=== PATIENT | female | born 1965 | race Caucasian/White ===

== ENCOUNTER 2017-01-07 18:20 | Emergency (ER) | payer OTHER ==
[~2017-01-07 18:20] MED LIST: ALEN70TA4 PO; BISA10SU38 PR; BUSP-8 PO; CALC600T PO; CLR10 PO; FLNIN NAE; LSN25 PO; MELA1TAB4 PO; MTML PO; MULT-513 PO; POLY3350 PO; RSP2 PO; SENN8.6T9 PO; SIMV20TA5 PO; SYM100 PO; SYN137 PO; TRAZ100T29 PO
--- NOTE | 2017-01-07 19:24 | EMERGENCY ROOM VISIT NOTE ---
ED Visit Note First contact with patient: 18:36 This Patient was discussed with the physician Animal Park Code Enforcement Officer, Paige Deleon PA-C. The pertinent historical and physical exam findings were confirmed. I agree with the studies ordered and with the interpretations of these studies. I agree with the disposition and care plan.
[2017-01-07] MEDS ORDERED: CEFTRIAXONE SOD INJ 1 GM ADDVIAL IM STA (19:26)
[2017-01-07] MEDS ORDERED: SEPTRA DS HOME PACK 1 EA VIAL PO ONE (19:30)
[2017-01-07] MEDS ORDERED: CEPHALEXIN 500MG HOME PACK 1 EA BTL PO ONE (19:30)
[2017-01-07] MEDS ORDERED: CEFTRIAXONE SOD 350MG/ML 1 GM VIAL IM ONE (19:45)
[2017-01-07] MEDS ORDERED: CEPH500C PO (20:11)
[2017-01-07] MEDS ORDERED: SULF800T23 PO (20:11)
--- NOTE | 2017-01-07 20:12 | EMERGENCY ROOM VISIT NOTE ---
History First contact with patient: 18:36 Chief Complaint: SWELLING TO EXTREMITY Stated Complaint: CAST CUTTING INTO TOE ,LEFT History of Present Illness The patient is a 51 year old female who presents to the Emergency Room accompanied by her guardian who states that the patient has pain of the left foot. Patient has a cast on her left lower extremity due to an ankle fracture. She has been seen [facility] for this injury. Her pony worker reports that the patient walks on her toes and the cast appears to be cutting into her left fifth toe. She states the patient appears to be in pain. She denies any fevers/chills. She denies any other complaints. Review of Systems A complete 10 point review of systems was reviewed with the patient with pertinent positives and negatives as per history of present illness. All else were negative. Past Medical/Surgical History Medical Problems: (1) Diabetes insipidus (2) Hysterectomy (3) Mental retardation Family History No reported family history Social History Smoking Status: Never Smoker Alcohol Use: none Drug Use: none Marital Status: single Housing Status: assisted living Occupation Status: disabled Current/Historical Medications Scheduled Alendronate Sodium (Fosamax), 70 MG PO WK Amantadine HCl (Amantadine HCl), 100 MG PO QAM Buspirone Hcl (Buspirone Hcl), 10 MG PO TID Calcium Carbonate (Calcium 600), 1,200 MG PO QAM Cephalexin Monohydrate (Keflex), 500 MG PO QID Fluticasone Propionate (Flonase Nasal [place]), 2 SPRAYS ZOYA QAM Levothyroxine Sodium (Levothyroxine Sodium), 137 MCG PO QAM Lisinopril (Lisinopril), 2.5 MG PO QAM Loratadine (Claritin), 10 MG PO QAM Melatonin (Melatonin), 2 MG PO HS Multivitamins/Minerals (Mvi With Minerals), 1 TAB PO QAM Polyethylene Glycol 3350 (Polyethylene Glycol 3350), 1 DOSE PO BID Psyllium (Konsyl), 1 TSP PO DAILY Risperidone (Risperidone), 2 MG PO QPM Sennosides (Senexon), 8.6 MG PO BID Simvastatin (Zocor), 20 MG PO HS Sulfa/Trimethoprim (Bactrim Ds 800MG/160MG), 1 TAB PO BID Trazodone Hcl (Trazodone), 400 MG PO HS Scheduled PRN Bisacodyl (Dulcolax), 1 SUPP NH every 3 days PRN for if no med-large bm Allergies Coded Allergies: Benztropine (Verified Allergy, Mild, 07/26/16) Pseudoephedrine (Verified Allergy, Mild, 07/26/16) Physical Exam Vital Signs Date Time Temp Pulse Resp B/P Pulse Ox O2 Delivery O2 Flow Rate FiO2 01/07/17 20:23 37.1 86 18 116/66 95 01/07/17 20:21 86 18 116/66 95 Room Air 01/07/17 18:28 37.1 18 95 Room Air Physical Exam VITALS: Vitals are noted on the nurse's note and reviewed by myself. Vital signs stable. GENERAL: This is a 51-year-old female, in no acute distress, nondiaphoretic, well-developed well-nourished. HEART: Regular rate and rhythm without murmurs gallops or rubs. LUNGS: Clear to auscultation bilaterally without wheezes, rales or rhonchi. No retractions or accessory muscle use. MUSCULOSKELETAL: There is a short leg cast in place on the left lower extremity. Removal of the cast shows an ulceration of the dorsal aspect of the left fifth toe. There is erythema suggestive of cellulitis surrounding the ulceration and extending into the dorsum of the foot. There is no drainage. No lymphangitic streaking. NEURO: Patient was alert and at her baseline mental status. Medical Decision & Procedures Medications Administered Medications (Trade) Dose Ordered Sig/Radhika Route Start Time Stop Time Status Last Admin Dose Admin Cephalexin Monohydrate (Keflex 500MG Home Pack) 1 homepack NOW ONCE PO 01/07/17 19:30 01/07/17 19:31 DC 01/07/17 19:44 1 HOMEPACK Trimethoprim/ Sulfamethoxazole (Sulfameth/ Trimeth Ds 800/ 160MG Home Pack) 1 homepack UD ONCE PO 01/07/17 19:30 01/07/17 19:31 DC 01/07/17 19:44 1 HOMEPACK Ceftriaxone Sodium (Rocephin Im) 1,000 mg NOW ONCE IM 01/07/17 19:45 01/07/17 19:47 DC 01/07/17 19:48 1,000 MG Medical Decision Differential diagnosis includes compartment syndrome, cellulitis, DVT, among others. The patient was evaluated as above. Removal of the cast does show an ulceration of the left fifth toe as well as a surrounding cellulitis. The patient was given 1 g Rocephin IM and will be placed on Keflex at home. I do not feel that she should be placed back in the cast or a hard splint. Instead, she was placed in a well-padded fracture boot pending follow-up with orthopedics. I did speak with the guardian. The patient will need a recheck of her wound in 48 hours to make sure it is not worsening. The patient should follow-up with her primary care provider or orthopedics for this recheck. She should return sooner for any worsening symptoms or any new/concerning symptoms. The patient's guardian verbalized understanding of my assessment and treatment plan the patient was discharged home in good condition. Impression Primary Impression: Cellulitis of foot, left Departure Information Dispostion Home / Self-Care Condition GOOD Prescriptions Sulfa/Trimethoprim (Bactrim Ds 800MG/160MG) Tab 1 TAB PO BID for 10 Days, #20 TAB Prov: Paige Deleon PA-C 01/07/17 Cephalexin Monohydrate (Keflex) 500 Mg Cap 500 MG PO QID for 10 Days, #40 CAP Prov: Paige Deleon PA-C 01/07/17 Referrals Dmityr Romero III, M.D. (PCP) Patient Instructions My [facility] Additional Instructions You were prescribed Bactrim to be taken twice daily as prescribed. This is an antibiotic. All antibiotics have the potential to cause diarrhea. Stop this medication and contact a medical provider if you were to develop any significant adverse side effects including: wheezing, shortness of breath, passing out, vomiting, or a diffuse rash. Always take antibiotics as directed and COMPLETE the ENTIRE course regardless of the improvement of your symptoms. You were prescribed Keflex to be taken 4 times daily as prescribed. This is an antibiotic. All antibiotics have the potential to cause diarrhea. Stop this medication and contact a medical provider if you were to develop any significant adverse side effects including: wheezing, shortness of breath, passing out, vomiting, or a diffuse rash. Always take antibiotics as directed and COMPLETE the ENTIRE course regardless of the improvement of your symptoms. The left foot needs rechecked Saturday morning by either Dr. Romero or [facility]. Change the dressing daily. Return to the emergency department immediately if there is worsening redness, worsening swelling, fevers or any other new/concerning symptoms.
[2017-01-07 20:23] VITALS: BP 116/66; PULSE 86; TEMP 37.1; O2SAT 95
== END 2017-01-07 20:25 | disposition home or self-care (01) ==
LOC: C.EDB 18:21 → C.EDD 20:25
DX: L03.116 Cellulitis of left lower limb (principal); E23.2 Diabetes insipidus; F79 Unspecified intellectual disabilities; Z79.899 Other long term (current) drug therapy

== ENCOUNTER 2017-01-24 11:00 | Emergency (ER) | payer OTHER ==
[~2017-01-24] VITALS: Ht 154.9 cm; Wt 66.6 kg
[2017-01-24 11:05] VITALS: TEMP 36.4; Ht 154.9 cm; Wt 66.6 kg
[2017-01-24] MEDS ORDERED: FLUT0.15 NAE (11:36)
[2017-01-24] MEDS ORDERED: SALI0.6510 NAE (11:41)
[2017-01-24] MEDS ORDERED: XYLOCAINE 1%/SOD BICARB 20 ML VIAL INFIL ONE (11:45)
--- NOTE | 2017-01-24 11:49 | EMERGENCY ROOM VISIT NOTE ---
History First contact with patient: 11:27 Chief Complaint: LACERATION/CUT (SUT/DERMABOND) Stated Complaint: FALL/ HEAD LAC / [facility] FACILITY Nursing Triage Summary: laceration occipital. has trouble with balance on a regular basis, has cast boot on. lost balance falling backward striking head History of Present Illness The patient is a 51 year old female who presents to the Emergency Room with complaints of fall. The patient lost her balance and fell backwards, striking the back of her head just prior to arrival. The patient has a history of falling and losing her balance. She did not have any loss of consciousness, vomiting or change in mental status. Her caregivers report a laceration to the back of the head. They state that her vaccinations are up-to-date. Review of Systems A 10 system review of systems was completed with positives and pertinent negatives listed in the HPI. The review of systems and history of present illness is primarily obtained from the patient's caregivers as she is largely nonverbal. Past Medical/Surgical History Medical Problems: (1) Diabetes insipidus (2) Hysterectomy (3) Mental retardation Family History No reported family history Social History Smoking Status: Never Smoker Alcohol Use: none Drug Use: none Marital Status: single Housing Status: assisted living Occupation Status: disabled Current/Historical Medications Scheduled Alendronate Sodium (Fosamax), 70 MG PO WK Amantadine HCl (Amantadine HCl), 100 MG PO QAM Buspirone Hcl (Buspirone Hcl), 10 MG PO TID Calcium Carbonate (Calcium 600), 1,200 MG PO QAM Levothyroxine Sodium (Levothyroxine Sodium), 137 MCG PO QAM Lisinopril (Lisinopril), 2.5 MG PO QAM Loratadine (Claritin), 10 MG PO QAM Melatonin (Melatonin), 2 MG PO HS Multivitamins/Minerals (Mvi With Minerals), 1 TAB PO QAM Polyethylene Glycol 3350 (Polyethylene Glycol 3350), 1 DOSE PO BID Psyllium (Konsyl), 1 TSP PO DAILY Risperidone (Risperidone), 2 MG PO QPM Sennosides ([place]), 8.6 MG PO BID Simvastatin (Zocor), 20 MG PO HS Trazodone Hcl (Trazodone), 400 MG PO QPM Scheduled PRN Bisacodyl (Dulcolax), 1 SUPP [place] every 3 days PRN for if no med-large bm Fluticasone Propionate (Nasal) (Flonase Allergy Relief), 1 SPRAY ZOYA BID PRN for CONGSTION Miscellaneous Medications Saline ([place] Nasal [place]), 1 SPRAY ZOYA Allergies Coded Allergies: Benztropine (Verified Allergy, Mild, 01/24/17) Pseudoephedrine (Verified Allergy, Mild, 01/24/17) Physical Exam Vital Signs Date Time Temp Pulse Resp B/P (MAP) Pulse Ox O2 Delivery O2 Flow Rate FiO2 01/24/17 13:30 80 18 110/68 92 01/24/17 11:05 36.4 88 18 118/68 94 Room Air Physical Exam VITALS: Vitals are noted on the nurse's note and reviewed by myself. Vital signs stable. GENERAL: This is a 51-year-old female, in no acute distress, nondiaphoretic, well-developed well-nourished. SKIN: The skin was without rashes, erythema, edema, or bruising. There is a laceration to the posterior scalp. There is a complex, total of 6 cm laceration to the posterior scalp. There are 2 lacerations on either side of a very very thin tissue flap. The wound edges gape with traction. There is no tenting of the skin. Capillary reflex less than 2 seconds. HEAD: Normocephalic atraumatic. EARS: External auditory canals clear, tympanic membranes pearly flores without erythema or effusion bilaterally. No hemotympanums. No mckinnon sign. No mastoid tenderness. EYES: Pupils equal round and reactive to light and accommodation. Conjunctivae without injection, sclerae without icterus. Extraocular movements intact. NOSE: Patent, turbinates without inflammation or discharge. No sinus tenderness. No septal hematoma or bleeding. FACE: No facial tenderness. MOUTH: Mucous membranes moist. Pharynx without erythema or exudate. Uvula midline. Airway patent. Tongue does not deviate. NECK: Supple without nuchal rigidity. Cervical spine is nontender. Full range of motion of the neck without tenderness. No JVD. HEART: Regular rate and rhythm without murmurs gallops or rubs. LUNGS: Clear to auscultation bilaterally without wheezes, rales or rhonchi. Strength No retractions or accessory muscle use. No chest tenderness. MUSCULOSKELETAL: A walking boot is in place on the left foot. The patient moves all 4 extremities. NEURO: The patient is at her baseline mental status per caregivers. Medical Decision & Procedures ER Provider Diagnostic Interpretation: CT HEAD WITHOUT CONTRAST (CT) CLINICAL HISTORY: Head trauma. Head pain. Closed head injury. COMPARISON STUDY: 07/17/2016 TECHNIQUE: Axial CT of the brain is performed from the vertex to the skull base. IV contrast was not administered for this examination. CT DOSE: 1459.56 mGycm FINDINGS: No intra or extra-axial mass lesions are visualized. There is no CT evidence of acute cortical infarction. There is no evidence of midline shift. There is no acute hemorrhage. No calvarial fractures are visualized. The examination is mildly compromised due to motion artifact. There is no evidence of pathologic ventricular dilatation. There is no evidence of acute sinusitis IMPRESSION: Slightly compromised study due to motion artifact. No acute intracranial findings. Medications Administered Medications (Trade) Dose Ordered Sig/Radhika Route Start Time Stop Time Status Last Admin Dose Admin Lidocaine HCl (Buffered Lidocaine 1% Inj) 20 ml NOW ONCE INFIL 01/24/17 11:45 01/24/17 11:46 DC 01/24/17 11:48 20 ML Procedure A scalp laceration was repaired. Using sterile technique the wound was cleaned with Betadine. The area was sterilely draped. 6 ml of 1% buffered lidocaine was used to anesthetize the scalp. Once the patient was numb, the wound was copiously irrigated under pressure with sterile saline. The laceration was repaired using 2 running 5-0 sutures were used to approximate the side of the flap. Additionally 1 simple interrupted 5-0 nylon suture was used with the wound edges being well approximated. The patient tolerated the procedure well. The bleeding stopped. The area was cleaned with sterile saline . ED Course The patient was seen and examined. Previous visits were reviewed. Imaging was obtained as above. There is no evidence for intracranial bleeding or skull fracture. The patient is at her baseline mental status per her caregivers. The patient had a complicated laceration to the posterior scalp. There was a very thin triangular shaped tissue flap. The laceration was large enough that I did not feel removing this tissue flap would be the best option. Instead, I attempted to approximate the wound edges using running sutures. I am not certain that this wound will heal very well. It is possible that the sutures will through this very thin tissue. It would not hold diomedes. I advised the patient's caregivers are to be very careful with this laceration and she will require close monitoring and possible wound center referral if it does not heal well. They should return to the emergency Department with any worsening symptoms. The patient was also seen and examined by who agrees with the assessment and treatment plan. Medical Decision The differential diagnosis includes: head or neck trauma, cerebrovascular disorders, intracranial lesions, infection,transient ischemic attack (TIA), CVA , seizure, syncope, intracranial mass, intracranial bleeding and vestibular disorders, among others Impression Primary Impression: Laceration of scalp Additional Impression: Closed head injury Departure Information Dispostion Home / Self-Care Condition GOOD Referrals Dmitry Romero III, M.D. (PCP) Patient Instructions ED [facility] Cl[facility], [facility] Additional Instructions Keep wound clean and dry. Do not allow any crusting or dried blood to accumulate on sutures. If this occurs, use a 1:1 solution of hydrogen peroxide/ water on a Q-tip to clean the wound. Use an antibiotic ointment for 3-4 days, then let wound dry. Suture removal in 7-10 days. Return sooner for any signs of infection (increasing redness, swelling, drainage). Ice and elevate for swelling and pain. There are two running sutures on either side of the tissue flap and one simple interrupted suture on the left side. Problem Qualifiers Primary Impression: Laceration of scalp Encounter type: initial encounter Qualified Codes: S01.01XA - Laceration without foreign body of scalp, initial encounter Additional Impression: Closed head injury Encounter type: initial encounter Qualified Codes: S09.90XA - Unspecified injury of head, initial encounter
--- NOTE | 2017-01-24 11:53 | EMERGENCY ROOM VISIT NOTE ---
ED Visit Note First contact with patient: 11:27 I have seen and examined this patient with Rabia Damian and generally agree with the treatment plan as discussed. Problem List Medical Problems: (1) Diabetes insipidus Status: Chronic (2) Hysterectomy Status: Resolved (3) Mental retardation Status: Chronic Current/Historical Medications Scheduled Alendronate Sodium (Fosamax), 70 MG PO WK Amantadine HCl (Amantadine HCl), 100 MG PO QAM Buspirone Hcl (Buspirone Hcl), 10 MG PO TID Calcium Carbonate (Calcium 600), 1,200 MG PO QAM Levothyroxine Sodium (Levothyroxine Sodium), 137 MCG PO QAM Lisinopril (Lisinopril), 2.5 MG PO QAM Loratadine (Claritin), 10 MG PO QAM Melatonin (Melatonin), 2 MG PO HS Multivitamins/Minerals (Mvi With Minerals), 1 TAB PO QAM Polyethylene Glycol 3350 (Polyethylene Glycol 3350), 1 DOSE PO BID Psyllium (Konsyl), 1 TSP PO DAILY Risperidone (Risperidone), 2 MG PO QPM Sennosides ([place]), 8.6 MG PO BID Simvastatin (Zocor), 20 MG PO HS Trazodone Hcl (Trazodone), 400 MG PO QPM Scheduled PRN Bisacodyl (Dulcolax), 1 SUPP ID every 3 days PRN for if no med-large bm Fluticasone Propionate (Nasal) (Flonase Allergy Relief), 1 SPRAY ZOYA BID PRN for CONGSTION Miscellaneous Medications Saline ([place] Nasal [place]), 1 SPRAY ZOYA Allergies Coded Allergies: Benztropine (Verified Allergy, Mild, 01/24/17) Pseudoephedrine (Verified Allergy, Mild, 01/24/17) Vital Signs Date Time Temp Pulse Resp B/P (MAP) Pulse Ox O2 Delivery O2 Flow Rate FiO2 01/24/17 11:05 36.4 88 18 118/68 94 Room Air Medications Administered Medications (Trade) Dose Ordered Sig/Radhika Route Start Time Stop Time Status Last Admin Dose Admin Lidocaine HCl (Buffered Lidocaine 1% Inj) 20 ml NOW ONCE INFIL 01/24/17 11:45 01/24/17 11:46 DC 01/24/17 11:48 20 ML Departure Information Referrals Dmitry Romero III, M.D. (PCP) Patient Instructions My [facility]
--- NOTE | 2017-01-24 12:09 | DIAGNOSTIC IMAGING REPORT ---
CT HEAD WITHOUT CONTRAST (CT) CLINICAL HISTORY: Head trauma. Head pain. Closed head injury. COMPARISON STUDY: 07/17/2016 TECHNIQUE: Axial CT of the brain is performed from the vertex to the skull base. IV contrast was not administered for this examination. CT DOSE: 1459.56 mGycm FINDINGS: No intra or extra-axial mass lesions are visualized. There is no CT evidence of acute cortical infarction. There is no evidence of midline shift. There is no acute hemorrhage. No calvarial fractures are visualized. The examination is mildly compromised due to motion artifact. There is no evidence of pathologic ventricular dilatation. There is no evidence of acute sinusitis IMPRESSION: Slightly compromised study due to motion artifact. No acute intracranial findings. Electronically signed by: Javier Donaldson M.D. 01/24/2017 12:07 PM Dictated Date/Time: 01/24/2017 12:06 PM
[2017-01-24 13:30] VITALS: BP 110/68; PULSE 80; O2SAT 92
== END 2017-01-24 13:30 | disposition home or self-care (01) ==
LOC: EDBD 11:00 → C.EDC 11:02
DX: S01.01XA Laceration without foreign body of scalp, initial encounter (principal); S09.90XA Unspecified injury of head, initial encounter; W01.0XXA Fall on same level from slipping, tripping and stumbling without subsequent striking against object, initial encounter; E23.2 Diabetes insipidus; F79 Unspecified intellectual disabilities; Z90.710 Acquired absence of both cervix and uterus

== ENCOUNTER 2017-04-02 09:25 | Emergency (ER) | payer OTHER ==
[~2017-04-02 09:25] MED LIST changes: -FLNIN NAE; +FLUT0.15 NAE; +SALI0.6510 NAE
[2017-04-02 09:39] VITALS: TEMP 36.6
--- NOTE | 2017-04-02 11:16 | DIAGNOSTIC IMAGING REPORT ---
CT SCAN OF THE CERVICAL SPINE CLINICAL HISTORY: Fall with head injury. COMPARISON STUDY: CT scan of the cervical spine dated 05/15/2016 and 08/17/2014. TECHNIQUE: CT scan of the cervical spine is performed from the skull base to the upper thoracic spine. Images are reviewed in the axial, sagittal, and coronal planes. IV contrast was not administered for this examination. FINDINGS: Skeletal structures: The skeletal structures are osteopenic. There is no evidence of fracture or subluxation involving the cervical spine. Vertebral body height and alignment are maintained. There is straightening of the cervical lordosis with reversal centered at C4-C5. The odontoid process and lateral masses are intact. The atlantoaxial articulation is preserved. The spinous processes appear intact. Anterior osteophytes are seen from C3 through C7. There is discontinuity of the anterior ring of C1, as well as the right review of C1. This could be on a congenital basis or related to remote trauma, and is unchanged from 08/17/2014. Chronic posttraumatic deformity is suggested in the right clavicle. Intervertebral discs: There is mild degenerative disc space narrowing seen at most levels.. Central canal: Clear as imaged. Soft tissues: The prevertebral and paraspinous soft tissues are within normal limits. The thyroid gland is atrophic versus surgically absent. Calvarium: The visualized calvarium at the skull base appears intact. Brain parenchyma: Partially visualized brain parenchyma the skull base is within normal limits. Sinuses and mastoids: Trace mucosal thickening is seen in the sphenoid sinuses. The mastoid air cells are well pneumatized. Lung apices: There is biapical scarring. Partially imaged apical lung parenchyma is otherwise clear as visualized. IMPRESSION: 1. There is no evidence of fracture or subluxation involving the cervical spine. 2. Osteopenia and mild spondylotic change as above. 3. Additional changes as above. Electronically signed by: Fernando Howell M.D. 04/02/2017 11:15 AM Dictated Date/Time: 04/02/2017 11:12 AM
--- NOTE | 2017-04-02 11:19 | DIAGNOSTIC IMAGING REPORT ---
HEAD WITHOUT CONTRAST (CT) CLINICAL HISTORY: 52 years-old Female with fall hit head. TECHNIQUE: Multiple axial CT images of the head were obtained without contrast. A dose lowering technique was utilized adhering to the principles of ALARA. CT DOSE: 1036.85 mGy.cm COMPARISON: CT head 01/24/2017. FINDINGS: No acute intracranial hemorrhage, midline shift, mass, large territorial ischemia or abnormal extra-axial collection. There is no cranial fracture. Mastoid air cells and middle ear cavities are clear. There is mild rightward bowing of the nasal septum. Partially imaged bilateral nasal bone fractures are present with mild angulation. Additionally, there is deep tissue air and soft tissue swelling adjacent to the right nasal bone fracture. No radiopaque foreign body. There is thickening of the maxillary sinus estrada with mild mucosal disease. IMPRESSION: 1. No acute intracranial abnormality. Negative for hemorrhage or calvarial fracture. 2. Bilateral angulated nasal bone fractures with associated soft tissue swelling and adjacent subcutaneous emphysema. The above report was generated using voice recognition software. It may contain grammatical, syntax or spelling errors. Electronically signed by: Bobby Khan M.D. 04/02/2017 11:18 AM Dictated Date/Time: 04/02/2017 11:14 AM
[2017-04-02] MEDS ORDERED: AMOX875T PO (12:08)
[2017-04-02] MEDS ORDERED: AMOXICILLIN/CLAVULANATE TAB 875 MG TAB PO ONE (12:15)
[2017-04-02 12:16] VITALS: BP 130/85; PULSE 112; O2SAT 98
--- NOTE | 2017-04-02 16:41 | EMERGENCY ROOM VISIT NOTE ---
History Report prepared by Rajani: Dion Noel Under the Supervision of: Dr. Alfredo Glass D.O. First contact with patient: 10:17 Chief Complaint: FALL Stated Complaint: FELL AND HIT NOSE;SWELLING AND BLEEDING History of Present Illness The patient is a 52 year old female who presents to the Emergency Room with complaints of constant facial pain s/p fall occurring 4.5 hours ago. She has a history of MR and is non-verbal. Per caregivers, the patient is a resident at an assisted living facility. They state that the patient fell forward and hit her nose. They state that a caregiver tried to catch the patient, and may have fallen on the patient as well. The patient's caregivers note that the patient falls frequently. They state that the patient's nose was bleeding following the episode. The patient's caregivers note that the patient has broken her nose multiple times. They state that the patient has been able to walk around normally following the episode. They do not believe the patient lost consciousness. HPI limited secondary to MR. edition is at her baseline. Source of History: caregiver History Limited By: other (MR) Onset: 4.5 hours ago Position: head (face) Timing: constant Associated Symptoms: No LOC Review of Systems ROS limited secondary to MR. Past Medical & Surgical Medical Problems: (1) Diabetes insipidus (2) Hysterectomy (3) Mental retardation Family History No reported family history Social History Smoking Status: Never Smoker Alcohol Use: none Drug Use: none Marital Status: single Housing Status: assisted living Occupation Status: disabled Current/Historical Medications Scheduled Alendronate Sodium (Fosamax), 70 MG PO WK Amantadine HCl (Amantadine HCl), 100 MG PO QAM Amoxicillin & Pot Clavulanate (Augmentin 875-125 mg), 875 MG PO BID Buspirone Hcl (Buspirone Hcl), 10 MG PO TID Calcium Carbonate (Calcium 600), 1,200 MG PO QAM Levothyroxine Sodium (Levothyroxine Sodium), 137 MCG PO QAM Lisinopril (Lisinopril), 2.5 MG PO QAM Loratadine (Claritin), 10 MG PO QAM Melatonin (Melatonin), 2 MG PO HS Multivitamins/Minerals (Mvi With Minerals), 1 TAB PO QAM Polyethylene Glycol 3350 (Polyethylene Glycol 3350), 1 DOSE PO BID Psyllium (Konsyl), 1 TSP PO DAILY Risperidone (Risperidone), 2 MG PO QPM Sennosides (Senexon), 8.6 MG PO BID Simvastatin (Zocor), 20 MG PO HS Trazodone Hcl (Trazodone), 400 MG PO QPM Scheduled PRN Bisacodyl (Dulcolax), 1 SUPP LA every 3 days PRN for if no med-large bm Fluticasone Propionate (Nasal) (Flonase Allergy Relief), 1 SPRAY ZOYA BID PRN for CONGSTION Miscellaneous Medications Saline ([place] Nasal [place]), 1 SPRAY ZOYA Allergies Coded Allergies: Benztropine (Verified Allergy, Mild, 04/02/17) Pseudoephedrine (Verified Allergy, Mild, 04/02/17) Physical Exam Vital Signs Date Time Temp Pulse Resp B/P (MAP) Pulse Ox O2 Delivery O2 Flow Rate FiO2 04/02/17 12:16 112 20 130/85 98 Room Air 04/02/17 10:58 102 20 136/84 96 Room Air 04/02/17 09:39 36.6 91 20 109/68 96 Room Air Physical Exam GENERAL: Sitting up in bed, shaking bilateral upper extremities, no acute distress, intermittently moaning. HEAD: normal cephalic, atraumatic EYE EXAM: normal conjunctiva, PERRL and EOM's intact OROPHARYNX: no exudate, no erythema, lips, buccal mucosa, and tongue normal and mucous membranes are moist. NOSE: No septal hematoma. Large bruise with septum deviated to the left. Dried blood in nares on the left. NECK: supple, no nuchal rigidity, no adenopathy, non-tender CHEST: stable to compression anteriorly and posteriorly LUNGS: clear to auscultation. Normal chest wall mechanics HEART: no murmurs, S1 normal and S2 normal ABDOMEN: abdomen soft, non-tender, normo-active bowel sounds, no masses, no rebound or guarding. PELVIS: stable to compression anteriorly and posteriorly BACK: Back is symmetrical on inspection and there is no deformity, no midline tenderness, no CVA tenderness. UPPER EXTREMITIES: full active and passive range of motion of all joints without tenderness to palpation LOWER EXTREMITIES: full active and passive range of motion of all joints without tenderness to palpation NEURO EXAM: Alert, at baseline per caretakers, moving all extremities, non- focal. Not following commands Medical Decision & Procedures ER Provider Diagnostic Interpretation: CT:Per my review, radiologist interpretation. HEAD WITHOUT CONTRAST (CT) FINDINGS: No acute intracranial hemorrhage, midline shift, mass, large territorial ischemia or abnormal extra-axial collection. There is no cranial fracture. Mastoid air cells and middle ear cavities are clear. There is mild rightward bowing of the nasal septum. Partially imaged bilateral nasal bone fractures are present with mild angulation. Additionally, there is deep tissue air and soft tissue swelling adjacent to the right nasal bone fracture. No radiopaque foreign body. There is thickening of the maxillary sinus estrada with mild mucosal disease. IMPRESSION: 1. No acute intracranial abnormality. Negative for hemorrhage or calvarial fracture. 2. Bilateral angulated nasal bone fractures with associated soft tissue swelling and adjacent subcutaneous emphysema. The above report was generated using voice recognition software. It may contain grammatical, syntax or spelling errors. Electronically signed by: Bobby Khan M.D. CT SCAN OF THE CERVICAL SPINE FINDINGS: Skeletal structures: The skeletal structures are osteopenic. There is no evidence of fracture or subluxation involving the cervical spine. Vertebral body height and alignment are maintained. There is straightening of the cervical lordosis with reversal centered at C4-C5. The odontoid process and lateral masses are intact. The atlantoaxial articulation is preserved. The spinous processes appear intact. Anterior osteophytes are seen from C3 through C7. There is discontinuity of the anterior ring of C1, as well as the right review of C1. This could be on a congenital basis or related to remote trauma, and is unchanged from 08/17/2014. Chronic posttraumatic deformity is suggested in the right clavicle. Intervertebral discs: There is mild degenerative disc space narrowing seen at most levels.. Central canal: Clear as imaged. Soft tissues: The prevertebral and paraspinous soft tissues are within normal limits. The thyroid gland is atrophic versus surgically absent. Calvarium: The visualized calvarium at the skull base appears intact. Brain parenchyma: Partially visualized brain parenchyma the skull base is within normal limits. Sinuses and mastoids: Trace mucosal thickening is seen in the sphenoid sinuses. The mastoid air cells are well pneumatized. Lung apices: There is biapical scarring. Partially imaged apical lung parenchyma is otherwise clear as visualized. IMPRESSION: 1. There is no evidence of fracture or subluxation involving the cervical spine. 2. Osteopenia and mild spondylotic change as above. 3. Additional changes as above. Electronically signed by: Fernando Howell M.D. Medications Administered Medications (Trade) Dose Ordered Sig/Radhika Route Start Time Stop Time Status Last Admin Dose Admin Amoxicillin/ Clavulanate Potassium (Augmentin Tab) 875 mg ONE ONCE PO 04/02/17 12:15 04/02/17 12:16 DC 04/02/17 12:21 875 MG ED Course ED COURSE: Vital signs were reviewed and appeared normal The patients medical record was reviewed The above diagnostic studies were performed and reviewed. ED treatments and interventions as stated above. 1019: The patient was evaluated in room C10. A complete history and physical examination was performed. 1215: Ordered Augmentin Tab 875 mg PO. Upon reevaluation, the patient is resting. I discussed my findings with the patient's caregivers and they understand and agree with the treatment plan. Based on the patients age, coexisting illnesses, exam and lab findings the decision to treat as an outpatient was made. The patient remained stable while under my care. The patient appeared well at the time of discharge. Medical Decision Differential diagnoses include major intracranial, cervical, spinal, thoracic, abdominal, pelvic and neurologic injury. Fracture, contusion, sprain, strain, laceration, abrasions included as well. Patient is a 52-year-old female that presents to the ER from a alf following a fall which was witnessed at 6 AM. No loss consciousness. She is currently at base line. She is nonverbal. Obvious deformity of nose. CT of head and cervical spine was unremarkable with the exception of the nasal fracture with a mild amount of subcutaneous air. She is given a dose of Augmentin and discharged on Augmentin. She'll follow up with ENT as I discussed case with Dr. Dong within 1 week. Discussed with county director concerning signs and symptoms to watch out for. Host And Hostess was instructed to follow up with their PCP and discussed with the parent their option to return to the ED at anytime for persistent or worsening symptoms. The appropriate anticipatory guidance and out-patient management, including indications for return to the emergency department, were explained at length to the county director and understood. Medication Reconcilliation Current Medication List: was personally reviewed by me Blood Pressure Screening Patient's blood pressure: Elevated blood pressure Blood pressure disposition: Elevated BP felt to be situational Consults Time Called: 1150 Consulting Physician: Dr. Morgan -ENT Returned Call: [phone] I reviewed the patient's case with Dr. Morgan. He agrees with treatment with antibiotics and follow up. Impression Primary Impression: Nasal bone fracture Additional Impression: Fall Scribe Attestation The scribe's documentation has been prepared under my direction and personally reviewed by me in its entirety. I confirm that the note above accurately reflects all work, treatment, procedures, and medical decision making performed by me. Departure Information Dispostion Home / Self-Care Prescriptions Amoxicillin & Pot Clavulanate (Augmentin 875-125 mg) 1 Tab Tab 875 MG PO BID for 7 Days, TAB Prov: Alfredo Glass, 04/02/17 Referrals Dmitry Romero III, M.D. (PCP) Forms HOME CARE DOCUMENTATION FORM, IMPORTANT VISIT INFORMATION Patient Instructions ED Fx Nasal Conf W X Ray, My [facility] Additional Instructions Please follow up with your primary care doctor within 1 week. Please follow-up with ENT within 1 week as well. Please take antibiotics as prescribed. Please cough with your mouth open, do not blow your nose, do not increase pressure within your head by any means. Problem Qualifiers Primary Impression: Nasal bone fracture Encounter type: initial encounter Fracture type: closed Qualified Codes: S02.2XXA - Fracture of nasal bones, initial encounter for closed fracture Additional Impression: Fall Encounter type: initial encounter Qualified Codes: W19.XXXA - Unspecified fall, initial encounter
== END 2017-04-02 12:23 | disposition home or self-care (01) ==
LOC: C.EDB 09:27 → C.EDC 12:23
DX: S02.2XXA Fracture of nasal bones, initial encounter for closed fracture (principal); W18.30XA Fall on same level, unspecified, initial encounter; Y92.199 Unspecified place in other specified residential institution as the place of occurrence of the external cause; F79 Unspecified intellectual disabilities; R29.6 Repeated falls; E23.2 Diabetes insipidus; Z90.710 Acquired absence of both cervix and uterus

== ENCOUNTER → 2017-05-21 | Outpatient (CLI) | payer OTHER ==
--- NOTE | 2017-05-21 15:45 | MAMMOGRAPHY REPORT ---
BILATERAL DIGITAL SCREENING MAMMOGRAM WITH CAD: 05/21/2017 CLINICAL HISTORY: Routine screening. Patient has no complaints. TECHNIQUE: Bilateral CC and MLO views were obtained. Current study was also evaluated with a Compute r Aided Detection (CAD) system. COMPARISON: Comparison is made to exams dated: 05/16/2016 mammogram, 05/09/2015 mammogram, 05/06/2014 m ammogram, 05/04/2013 mammogram, 04/22/2012 mammogram, and 05/01/2010 mammogram - [facility] enter. BREAST COMPOSITION: The tissue of both breasts is heterogeneously dense, which may obscure small mas ses. FINDINGS: The examination is suboptimal due to patient tremors and inability to tolerate adequate pos itioning for the exam, despite assistance from a second electromechanical technologist holding the patient for the views. There are diffuse bilateral benign-appearing microcalcifications. No obvious new mas s, architectural distortion or cluster of new microcalcifications is seen. IMPRESSION: ACR BI-RADS CATEGORY 1: NEGATIVE Suboptimal examination due to patient tremors and inability to adequately position for the exam despi te assistance from a second electromechanical technologist. Within these limitations, there is no mammogra [facility] evidence of malignancy. A 1 year screening mammogram is recommended. The patient will receive w ritten notification of the results. Approximately 10% of breast cancers are not detected with mammography. A negative mammographic report should not delay biopsy if a clinically suggestive mass is present. Brandy Mendoza M.D. ay/:05/21/2017 15:11:40 Attending Technologist: Zoe Sorensen RT(R)(M), [facility] [employer] Chemist: Valerie Coker RT(R)(M), [facility] letter sent: Normal 1/2 BI-RADS Code: ACR BI-RADS Category 1: Negative
== END | disposition home or self-care (01) ==
LOC: C.MAMM 11:27
PROVIDERS: ATTEND Family Medicine
DX: Z12.31 Encounter for screening mammogram for malignant neoplasm of breast (principal)

== ENCOUNTER 2017-07-09 19:56 | Emergency (ER) | payer OTHER ==
[~2017-07-09] VITALS: Ht 170.2 cm; Wt 67.3 kg
[2017-07-09 20:05] VITALS: TEMP 36.8; Ht 170.2 cm; Wt 67.3 kg
--- NOTE | 2017-07-09 20:47 | DIAGNOSTIC IMAGING REPORT ---
L FOOT MIN 3 VIEWS ROUTINE CLINICAL HISTORY: L foot pain/swelling pain. Edema. COMPARISON: None. DISCUSSION: Slightly angled fracture distal aspect second metatarsal. Moderate degenerative change of all remaining osseous structures. No evidence of dislocation. Old healed fracture distal fibula. Considerable degenerative change proximal interphalangeal joint fifth toe. Moderate soft tissue edema IMPRESSION: 1. Transverse fracture distal shaft second metatarsal. 2. Degenerative and old posttraumatic change. 3. Mild soft tissue edema. The above report was generated using voice recognition software. It may contain grammatical, syntax or spelling errors. Electronically signed by: Som Rivera M.D. 07/09/2017 8:46 PM Dictated Date/Time: 07/09/2017 8:45 PM
--- NOTE | 2017-07-09 21:06 | EMERGENCY ROOM VISIT NOTE ---
History First contact with patient: 20:10 Chief Complaint: FOOT PAIN Stated Complaint: L FOOT PAIN PHYSICAL DISCOMFORT History of Present Illness The patient is a 52 year old female who presents to the Emergency Room with her caregiver from the [facility], for evaluation of left foot swelling and discomfort. The caregiver reports that when they were changing her clothing tonight, they noticed swelling of the left foot. When staff attempted to touch or move the foot, she retracted the foot. The patient is nonverbal and usually does not exhibit any type of pain response. Did not witness any injuries today. Review of Systems Review of systems could not be performed because the patient is nonverbal Past Medical/Surgical History Medical Problems: (1) Diabetes insipidus (2) Hysterectomy (3) Mental retardation Family History No reported family history Social History Smoking Status: Never Smoker Alcohol Use: none Drug Use: none Marital Status: single Housing Status: assisted living Occupation Status: disabled Current/Historical Medications Scheduled Alendronate Sodium (Fosamax), 70 MG PO WK Amantadine HCl (Amantadine HCl), 100 MG PO QAM Buspirone Hcl (Buspirone Hcl), 10 MG PO TID Calcium Carbonate (Calcium 600), 1,200 MG PO QAM Levothyroxine Sodium (Levothyroxine Sodium), 137 MCG PO QAM Lisinopril (Lisinopril), 2.5 MG PO QAM Loratadine (Claritin), 10 MG PO QAM Melatonin (Melatonin), 2 MG PO HS Multivitamins/Minerals (Mvi With Minerals), 1 TAB PO QAM Polyethylene Glycol 3350 (Polyethylene Glycol 3350), 1 DOSE PO BID Psyllium (Konsyl), 1 TSP PO DAILY Risperidone (Risperidone), 2 MG PO QPM Sennosides (Senexon), 8.6 MG PO BID Simvastatin (Zocor), 20 MG PO HS Trazodone Hcl (Trazodone), 400 MG PO QPM Scheduled PRN Bisacodyl (Dulcolax), 1 SUPP [place] every 3 days PRN for if no med-large bm Fluticasone Propionate (Nasal) (Flonase Allergy Relief), 1 SPRAY ZOYA BID PRN for CONGSTION Miscellaneous Medications Saline ([place] Nasal [place]), 1 SPRAY ZOYA Physical Exam Vital Signs Date Time Temp Pulse Resp B/P (MAP) Pulse Ox O2 Delivery O2 Flow Rate FiO2 07/09/17 21:30 80 18 120/68 96 07/09/17 20:05 36.8 91 20 118/84 93 Room Air Physical Exam CONSTITUTIONAL: Healthy and well nourished. HEENT: Normocephalic, atraumatic. Pupils equal, round and reactive. NECK: The patient appears to have decent active range of motion without discomfort. RESPIRATORY: Clear to auscultation bilaterally with no wheezing, crackles, rhonchi or stridor. CARDIOVASCULAR: Regular rate and rhythm with no murmurs, rubs or gallops. GASTROINTESTINAL: Bowel sounds present in all quadrants. Soft and nontender to palpation. MUSCULOSKELETAL: Examination of the left foot shows mild edema without any erythema, ecchymosis, abrasions, lacerations or increased warmth to palpation. She does not appear to have any significant discomfort to palpation about the ankle, calcaneus or Achilles tendon. Pedal pulses are intact. INTEGUMENTARY: No rash or other significant dermatologic conditions noted. NEUROLOGIC: No focal neurologic deficits noted. Medical Decision & Procedures ER Provider Diagnostic Interpretation: My interpretation of left foot x-rays shows a transverse fracture of the distal second metatarsal. No dislocation noted. Radiologist report is as follows: L FOOT MIN 3 VIEWS ROUTINE CLINICAL HISTORY: L foot pain/swelling pain. Edema. COMPARISON: None. DISCUSSION: Slightly angled fracture distal aspect second metatarsal. Moderate degenerative change of all remaining osseous structures. No evidence of dislocation. Old healed fracture distal fibula. Considerable degenerative change proximal interphalangeal joint fifth toe. Moderate soft tissue edema IMPRESSION: 1. Transverse fracture distal shaft second metatarsal. 2. Degenerative and old posttraumatic change. 3. Mild soft tissue edema. ED Course Patient history and physical exam were performed. Nurse's notes were reviewed. Vital signs were reviewed and were normal. The patient did not appear in any acute distress on my exam. X-rays of the left foot confirms a displaced fracture of the distal shaft of the second metatarsal. According to the caregiver, the patient has difficulty walking anyway, and is up and about frequently. I explained that an Ortho-Glass splint would not support her weight , and also feel that she is unable to use crutches or a walker. I also discouraged use of a fracture boot as staff reports that she usually walks with a pronated foot which we will increase her risk for tripping and falling, potentially causing other injuries. She has a history of frequent falls as well. I suggested that they use a wheelchair and limit activities until reevaluated by orthopedics. The child support case officer was able to call her supervisor drilling and shooting who reports that she has worn a fracture boot in the past without any complications. The patient was therefore dispensed a hightop fracture boot. They may intermittently apply ice and elevate the foot as needed for any obvious discomfort or pain. The caregiver voiced understanding of all discharge instructions. The patient was also evaluated by Dr. Lewis, ED attending physician, who agrees with workup and plan of care. Medical Decision Blood Pressure Screening Patient's blood pressure: Normal blood pressure Impression Primary Impression: Fracture of second metatarsal bone of left foot Departure Information Referrals Dmitry Romero III, M.D. (PCP) Patient Instructions My [facility] Problem Qualifiers Primary Impression: Fracture of second metatarsal bone of left foot Encounter type: initial encounter Fracture type: closed Fracture alignment : displaced Qualified Codes: S92.322A - Displaced fracture of second metatarsal bone, left foot, initial encounter for closed fracture
--- NOTE | 2017-07-09 21:15 | EMERGENCY ROOM VISIT NOTE ---
ED Visit Note First contact with patient: 20:10 This Patient was discussed with the physician Director Of Event Marketing, Ray Villalobos PA-C. The pertinent historical and physical exam findings were confirmed. I agree with the studies ordered and with the interpretations of these studies. I agree with the disposition and care plan.
[2017-07-09 21:30] VITALS: BP 120/68; PULSE 80; O2SAT 96
== END 2017-07-09 21:31 | disposition home or self-care (01) ==
LOC: C.EDB 19:57 → C.EDD 21:31
DX: S92.322A Displaced fracture of second metatarsal bone, left foot, initial encounter for closed fracture (principal); X58.XXXA Exposure to other specified factors, initial encounter; E23.2 Diabetes insipidus; F79 Unspecified intellectual disabilities

== ENCOUNTER 2017-09-12 09:23 | Emergency (ER) | payer OTHER ==
[~2017-09-12] VITALS: Ht 154.9 cm; Wt 70.6 kg
[2017-09-12 09:23] VITALS: TEMP 37; Ht 154.9 cm; Wt 70.6 kg
--- NOTE | 2017-09-12 10:17 | DIAGNOSTIC IMAGING REPORT ---
CT SCAN OF THE BRAIN WITHOUT IV CONTRAST CLINICAL HISTORY: Fall. COMPARISON STUDY: CT of the brain dated 04/02/2017. TECHNIQUE: Unenhanced axial CT scan of the brain is performed from the vertex to the skull base. A dose lowering technique was utilized adhering to the principles of ALARA. CT DOSE: 776.86 mGycm FINDINGS: Brain parenchyma: The brain parenchyma is normal in appearance. There is no hemorrhage, mass effect, or evidence of acute territorial ischemia by CT criteria. Wilkinson-white matter is preserved. No extra-axial fluid collection is seen. Ventricles, sulci, cisterns: Normal in configuration. Intracranial vasculature: Mild atherosclerotic calcification is noted in the cavernous carotid and vertebral arteries. Calvarium: There is no depressed calvarial fracture. Sinuses and mastoids: The visualized paranasal sinuses are clear. The mastoid air cells are well pneumatized. Orbits: The bony orbits are grossly intact. IMPRESSION: There is no hemorrhage, mass effect, or evidence of acute territorial ischemia by CT criteria. Electronically signed by: Fernando Howell M.D. 09/12/2017 10:15 AM Dictated Date/Time: 09/12/2017 10:14 AM
--- NOTE | 2017-09-12 10:35 | DIAGNOSTIC IMAGING REPORT ---
SINGLE VIEW CHEST CLINICAL HISTORY: Fall. FINDINGS: An AP, portable, upright chest radiograph is compared to study dated 02/14/2013. The examination is degraded by portable technique and patient rotation. The cardiomediastinal silhouette is unremarkable. Chronic interstitial thickening is unchanged. There is minimal bibasilar atelectasis. No airspace consolidation is seen typical for pneumonia and there is no large pleural effusion. No pneumothorax is seen. The skeletal structures are osteopenic. Chronic posttraumatic deformity is seen in the distal right clavicle. IMPRESSION: No acute cardiopulmonary abnormality. Electronically signed by: Fernando Howell M.D. 09/12/2017 10:33 AM Dictated Date/Time: 09/12/2017 10:33 AM
--- NOTE | 2017-09-12 10:42 | DIAGNOSTIC IMAGING REPORT ---
R HIP UNILATERAL 2 VIEWS CLINICAL HISTORY: 52 years-old Female presenting with fall on to right side. TECHNIQUE: Frontal and frog-leg lateral views of the right hip were obtained. COMPARISON: None. FINDINGS: Right hip joint congruent. Positioning of the frontal radiograph is suboptimal limiting evaluation. No evidence of fracture or acute malalignment. No advanced degenerative change of the right hip. Visualized portion of the bony pelvis within normal limits apart from degenerative changes of the pubic symphysis. IMPRESSION: No acute osseous injury of the right hip allowing for suboptimal positioning. Electronically signed by: Dustin Langston M.D. 09/12/2017 10:40 AM Dictated Date/Time: 09/12/2017 10:39 AM
[2017-09-12 11:26] VITALS: BP 112/92; PULSE 103; O2SAT 97
--- NOTE | 2017-09-12 16:09 | EMERGENCY ROOM VISIT NOTE ---
History Report prepared by Rajani: Aakash Cade Under the Supervision of: Dr. Dmitry Figueroa M.D. First contact with patient: 09:33 Chief Complaint: HEAD INJURY (MINOR) Stated Complaint: FALL History of Present Illness The patient is a 52 year old female who presents to the Emergency Room with complaints of minor head injury that occurred about 40 minutes ago. HPI is limited secondary to the patient's MR. At baseline, the patient is mostly nonverbal. This history is provided by the patient's residential home service consultant. Prior to arrival, the patient was [facility] when another client accidentally bumped into her causing her to experience a fall. She hit her head on a stand when falling to the ground, but they are unsure if she hit her head on the ground. She is not complaining of any pain at this time, but they state she has a high pain tolerance. She was able to walk afterward. They state that she is acting her normal self and is at baseline. History is limited secondary to patient's mental retardation. Source of History: caregiver History Limited By: other (MR) Onset: 40 minutes ago Position: head Symptom Intensity: mild Quality: other (Trauma) Timing: resolved Review of Systems ROS is limited secondary to the patient's MR. Past Medical & Surgical Medical Problems: (1) Acute head injury (2) Cellulitis of foot, left (3) Closed head injury (4) Diabetes insipidus (5) Fall (6) Hysterectomy (7) Laceration of scalp (8) Lip laceration (9) Mental retardation (10) Nasal bone fracture (11) Nasal bone fractures Family History No reported family history Social History Smoking Status: Never Smoker Alcohol Use: none Drug Use: none Marital Status: single Housing Status: assisted living Occupation Status: disabled Current/Historical Medications Scheduled Alendronate Sodium (Fosamax), 70 MG PO WK Amantadine HCl (Amantadine HCl), 100 MG PO QAM Buspirone Hcl (Buspirone Hcl), 10 MG PO TID Calcium Carbonate (Calcium 600), 1,200 MG PO QAM Levothyroxine Sodium (Levothyroxine Sodium), 137 MCG PO QAM Lisinopril (Lisinopril), 2.5 MG PO QAM Loratadine (Claritin), 10 MG PO QAM Melatonin (Melatonin), 2 MG PO HS Multivitamins/Minerals (Mvi With Minerals), 1 TAB PO QAM Polyethylene Glycol 3350 (Polyethylene Glycol 3350), 1 DOSE PO BID Psyllium (Konsyl), 1 TSP PO DAILY Risperidone (Risperidone), 2 MG PO QPM Sennosides (Senexon), 8.6 MG PO BID Simvastatin (Zocor), 20 MG PO HS Trazodone Hcl (Trazodone), 400 MG PO QPM Scheduled PRN Bisacodyl (Dulcolax), 1 SUPP TN every 3 days PRN for if no med-large bm Fluticasone Propionate (Nasal) (Flonase Allergy Relief), 1 SPRAY ZOYA BID PRN for CONGSTION Miscellaneous Medications Saline ([place] Nasal [place]), 1 SPRAY ZOYA Allergies Coded Allergies: Benztropine (Verified Allergy, Mild, 07/09/17) Pseudoephedrine (Verified Allergy, Mild, 07/09/17) Physical Exam Vital Signs Date Time Temp Pulse Resp B/P (MAP) Pulse Ox O2 Delivery O2 Flow Rate FiO2 09/12/17 11:26 103 16 112/92 97 09/12/17 10:52 103 16 112/92 97 Room Air 09/12/17 09:23 37.0 96 20 105/78 99 Room Air Physical Exam GENERAL: Awake, alert, well-appearing, in no distress HENT: Normocephalic, atraumatic. Oropharynx unremarkable. EYES: Normal conjunctiva. Sclera non-icteric. NECK: Supple. No nuchal rigidity. FROM. No JVD. RESPIRATORY: Clear to auscultation. CARDIAC: Regular rate, normal rhythm. Extremities warm and well perfused. Pulses equal. ABDOMEN: Soft, non-distended. No tenderness to palpation. No rebound or guarding. No masses. RECTAL: Deferred. MUSCULOSKELETAL: Chest examination reveals no tenderness. The back is symmetrical on inspection without obvious abnormality. There is no CVA tenderness to palpation. No joint edema. No hip or rib tenderness. LOWER EXTREMITIES: Calves are equal size bilaterally and non-tender. No edema. Old appearing bruise to the left thigh. NEURO: MR. No sensory or motor deficits noted. SKIN: No rash or jaundice noted. Medical Decision & Procedures ER Provider Diagnostic Interpretation: Radiology results as stated below per my review and radiologist interpretation: R HIP UNILATERAL 2 VIEWS CLINICAL HISTORY: 52 years-old Female presenting with fall on to right side. TECHNIQUE: Frontal and frog-leg lateral views of the right hip were obtained. COMPARISON: None. FINDINGS: Right hip joint congruent. Positioning of the frontal radiograph is suboptimal limiting evaluation. No evidence of fracture or acute malalignment. No advanced degenerative change of the right hip. Visualized portion of the bony pelvis within normal limits apart from degenerative changes of the pubic symphysis. IMPRESSION: No acute osseous injury of the right hip allowing for suboptimal positioning. Electronically signed by: Dustin Langston M.D. 09/12/2017 10:40 AM Dictated Date/Time: 09/12/2017 10:[address] SCAN OF THE BRAIN WITHOUT IV CONTRAST CLINICAL HISTORY: Fall. COMPARISON STUDY: CT of the brain dated 04/02/2017. TECHNIQUE: Unenhanced axial CT scan of the brain is performed from the vertex to the skull base. A dose lowering technique was utilized adhering to the principles of ALARA. CT DOSE: 776.86 mGycm FINDINGS: Brain parenchyma: The brain parenchyma is normal in appearance. There is no hemorrhage, mass effect, or evidence of acute territorial ischemia by CT criteria. Wilkinson-white matter is preserved. No extra-axial fluid collection is seen. Ventricles, sulci, cisterns: Normal in configuration. Intracranial vasculature: Mild atherosclerotic calcification is noted in the cavernous carotid and vertebral arteries. Calvarium: There is no depressed calvarial fracture. Sinuses and mastoids: The visualized paranasal sinuses are clear. The mastoid air cells are well pneumatized. Orbits: The bony orbits are grossly intact. IMPRESSION: There is no hemorrhage, mass effect, or evidence of acute territorial ischemia by CT criteria. Electronically signed by: Fernando Howell M.D. 09/12/2017 10:15 AM Dictated Date/Time: 09/12/2017 10:14 AM SINGLE VIEW CHEST CLINICAL HISTORY: Fall. FINDINGS: An AP, portable, upright chest radiograph is compared to study dated 02/14/2013. The examination is degraded by portable technique and patient rotation. The cardiomediastinal silhouette is unremarkable. Chronic interstitial thickening is unchanged. There is minimal bibasilar atelectasis. No airspace consolidation is seen typical for pneumonia and there is no large pleural effusion. No pneumothorax is seen. The skeletal structures are osteopenic. Chronic posttraumatic deformity is seen in the distal right clavicle. IMPRESSION: No acute cardiopulmonary abnormality. Electronically signed by: Fernando Howell M.D. 09/12/2017 10:33 AM Dictated Date/Time: 09/12/2017 10:33 AM ED Course 0933: The patient was evaluated in room A10. A complete history and physical exam was performed. 1104: I reevaluated the patient. Discussed results and discharge instructions: Her caregiver verbalized understanding and agreement. The patient is ready for discharge. Medical Decision Triage Nursing notes reviewed. The patient's presentation and history were concerning for fall. Etiologies such as soft tissue injury, fracture, dislocation, neurovascular compromise, compartment syndrome, as well as others were entertained. The patient was evaluated. Clinically she was doing well. Caregivers state she was at her baseline. No external wounds were noted except for a small bruise in the left thigh although this appeared old. The patient does fall frequently. The x-ray imaging of the hip and chest were unremarkable. Her head CT was negative. I discussed conservative management with the caregivers and they felt comfortable. Close outpatient follow-up was recommended. By the evaluation outlined above other emergent etiologies such as those listed in the differential, as well as others, were deemed relatively unlikely. The caregivers were educated about the findings as listed above. All questions were answered and they were pleased with the treatment. Return instructions were outlined and the patient was discharged in stable condition. The patient was referred to her PCP for follow-up for a recheck of the current condition. Medication Reconcilliation Current Medication List: was personally reviewed by me Blood Pressure Screening Patient's blood pressure: Normal blood pressure Blood pressure disposition: Did not require urgent referral Impression Primary Impression: Closed head injury Additional Impressions: Fall Multiple contusions Scribe Attestation The scribe's documentation has been prepared under my direction and personally reviewed by me in its entirety. I confirm that the note above accurately reflects all work, treatment, procedures, and medical decision making performed by me. Departure Information Dispostion Home / Self-Care Referrals Dmitry Romero III, M.D. (PCP) Forms HOME CARE DOCUMENTATION FORM, IMPORTANT VISIT INFORMATION Patient Instructions My [facility] Additional Instructions Tylenol: Take 1000 mg every 6 hours as needed for pain. Do not take more than 3000 mg in a 24 hour period. Continue current medications. Primary follow-up next week. Return to the ER for headache, passing out, difficulty breathing, fevers, numbness, tingling, worsening of her condition, or as needed. Problem Qualifiers Primary Impression: Closed head injury Encounter type: initial encounter Qualified Codes: S09.90XA - Unspecified injury of head, initial encounter Additional Impressions: Fall Encounter type: initial encounter Qualified Codes: W19.XXXA - Unspecified fall, initial encounter
== END 2017-09-12 11:26 | disposition home or self-care (01) ==
LOC: EDBD 09:23 → C.EDA 09:25
DX: S06.9X0A Unspecified intracranial injury without loss of consciousness, initial encounter (principal); T14.8XXA Other injury of unspecified body region, initial encounter; W01.190A Fall on same level from slipping, tripping and stumbling with subsequent striking against furniture, initial encounter; Y92.89 Other specified places as the place of occurrence of the external cause; F79 Unspecified intellectual disabilities; E11.9 Type 2 diabetes mellitus without complications; Z79.899 Other long term (current) drug therapy

== ENCOUNTER 2017-10-05 16:05 | Emergency (ER) | payer OTHER ==
[2017-10-05 16:32] VITALS: TEMP 36.8
[2017-10-05] MEDS ORDERED: SODIUM CHLORIDE 0.9% 1000ML 1,000 ML IV STA (16:45)
--- NOTE | 2017-10-05 16:56 | EMERGENCY ROOM VISIT NOTE ---
History Report prepared by Rajani: Tram Phillips Under the Supervision of: Dr. Tigre Avila M.D. First contact with patient: 16:37 Chief Complaint: DEHYDRATION Stated Complaint: LETHARGIC,NOT DRINKING, CANNOT STAND ON HER OWN Nursing Triage Summary: Patient to ED from [facility] with meat department manager, per meat department manager patient has not been eating or drinking, increased lethargy, staff states "she is not very verbal, but its even worse then normal and she won't even get up for us and stand." History of Present Illness The patient is a 52 year old female who presents to the Emergency Room with complaints of generalized lethargy beginning this morning. The patient comes from [facility] and is in room with her meat department manager. Per caregiver, when the patient woke up with morning she was lethargic, unable to communicate or walk by herself. The patient has not eaten or drank anything today. The meat department manager reports the patient is severely intellectually disabled. At baseline, the patient is able to talk in "simple phrases" and walk by herself. She also has tremors at baseline. The meat department manager is unsure of any falls. The patient's medications are controlled by the caretakers at [facility]. The patient's normal medications were administered today. History is provided by the patient's caregiver. Source of History: caregiver History Limited By: other (baseline mental status) Onset: this morning Position: other (generalized) Quality: other (lethargy) Timing: constant Review of Systems ROS limited secondary to patient's baseline mental status. Past Medical & Surgical Medical Problems: (1) Acute head injury (2) Cellulitis of foot, left (3) Closed head injury (4) Diabetes insipidus (5) Fall (6) Hysterectomy (7) Laceration of scalp (8) Lip laceration (9) Mental retardation (10) Nasal bone fracture (11) Nasal bone fractures Family History No reported family history Social History Smoking Status: Never Smoker Alcohol Use: none Drug Use: none Marital Status: single Housing Status: assisted living Occupation Status: disabled Current/Historical Medications Scheduled Alendronate Sodium (Fosamax), 70 MG PO WK Amantadine HCl (Amantadine HCl), 100 MG PO QAM Buspirone Hcl (Buspirone Hcl), 10 MG PO TID Calcium Carbonate (Calcium 600), 1,200 MG PO QAM Levothyroxine Sodium (Levothyroxine Sodium), 137 MCG PO QAM Lisinopril (Lisinopril), 2.5 MG PO QAM Loratadine (Claritin), 10 MG PO QAM Melatonin (Melatonin), 2 MG PO HS Multivitamins/Minerals (Mvi With Minerals), 1 TAB PO QAM Nitrofurantoin Monohyd Macrocr (Macrobid), 100 MG PO BID Polyethylene Glycol 3350 (Polyethylene Glycol 3350), 1 DOSE PO BID Psyllium (Konsyl), 1 TSP PO DAILY Risperidone (Risperidone), 2 MG PO QPM Sennosides (Senexon), 8.6 MG PO BID Simvastatin (Zocor), 20 MG PO HS Trazodone Hcl (Trazodone), 400 MG PO QPM Scheduled PRN Bisacodyl (Dulcolax), 1 SUPP ID every 3 days PRN for if no med-large bm Fluticasone Propionate (Nasal) (Flonase Allergy Relief), 1 SPRAY ZOYA BID PRN for CONGSTION Miscellaneous Medications Saline ([place] Nasal [place]), 1 SPRAY ZOYA Allergies Coded Allergies: Benztropine (Verified Allergy, Mild, 07/09/17) Pseudoephedrine (Verified Allergy, Mild, 07/09/17) Physical Exam Vital Signs Date Time Temp Pulse Resp B/P (MAP) Pulse Ox O2 Delivery O2 Flow Rate FiO2 10/05/17 20:43 99 18 121/81 96 10/05/17 18:49 117 16 128/74 95 Room Air 10/05/17 16:32 36.8 73 20 114/83 95 Room Air Physical Exam Physical Exam HENT: Exam performed. Head: Normocephalic and atraumatic. Right Ear: External ear normal. No mastoid tenderness. Left Ear: External ear normal. No mastoid tenderness. Mouth/Throat: The oropharynx is clear and moist. No trismus in the jaw. No dental abscesses or uvula swelling. No oropharyngeal exudate or tonsillar abscesses. ____ EYES: Conjunctivae and EOM are normal. Pupils are equal, round, and reactive to light. Right eye exhibits no discharge. Left eye exhibits no discharge. No scleral icterus. ____ NECK: Normal range of motion. Neck supple. No JVD present. No spinous process tenderness present. No carotid bruit present. No rigidity. No tracheal deviation and normal range of motion present. CV: Normal rate, regular rhythm, normal heart sounds and intact distal pulses. There is no peripheral edema. Palpable radial pulses bue. ____ PULM/CHEST: Effort normal and breath sounds normal. No respiratory distress. No stridor. She has no wheezes. She has no rales. Chest Wall: She exhibits no tenderness. ____ ABD: The abdomen is soft. Bowel sounds are normal. She has no distension. No mass is present. There is no tenderness. There is no rebound, no guarding, no Marsh's sign and no tenderness at McBurney's point. Rovsig negative MUSC/SKEL: Normal range of motion. There is no peripheral edema, tenderness or deformity. LYMPH: No cervical adenopathy. ____ NEURO: Tremor baseline per membership coordinator at bedside. Sensation grossly intact, motor grossly intact SKIN: Skin is warm and dry. She is not diaphoretic. ____ PSYCH: Patient speaking in one word sentences to membership coordinator, baseline per membership coordinator. Medical Decision & Procedures ER Provider Diagnostic Interpretation: Radiology results as stated below per my review and radiologist interpretation: CHEST ONE VIEW PORTABLE FINDINGS: The cardiac and mediastinal contours are normal. There is no evidence of focal pulmonary consolidation. There is no evidence of failure. No pleural effusions are visualized.[ There are old posterior back deformity is involving the distal right clavicle. IMPRESSION: No active disease in the chest. Electronically signed by: Javier Donaldson M.D. CT HEAD WITHOUT CONTRAST (CT) FINDINGS: No intra or extra-axial mass lesions are visualized. There is no CT evidence of acute cortical infarction. There is no evidence of midline shift. There is no acute hemorrhage. No calvarial fractures are visualized. There is no evidence of pathologic ventricular dilatation. There is no evidence of acute sinusitis IMPRESSION: No acute intracranial findings Electronically signed by: Javier Donaldson M.D. Laboratory Results 10/05/17 17:00 Red Blood Count 4.92, Mean Corpuscular Volume 92.5, Mean Corpuscular Hemoglobin 31.1, Mean Corpuscular Hemoglobin Concent 33.6, Mean Platelet Volume 10.1, Neutrophils (%) (Auto) 73.1, Lymphocytes (%) (Auto) 16.5, Monocytes (%) (Auto) 7.0, Eosinophils (%) (Auto) 2.7, Basophils (%) (Auto) 0.3, Neutrophils # (Auto) 5.73, Lymphocytes # (Auto) 1.29, Monocytes # (Auto) 0.55, Eosinophils # (Auto) 0.21, Basophils # (Auto) 0.02 10/05/17 17:00 Test 10/05/17 17:00 10/05/17 17:40 10/05/17 18:15 White Blood Count 7.83 K/uL (4.8-10.8) Red Blood Count 4.92 M/uL (4.2-5.4) Hemoglobin 15.3 g/dL (12.0-16.0) Hematocrit 45.5 % (37-47) Mean Corpuscular Volume 92.5 fL (80-100) Mean Corpuscular Hemoglobin 31.1 pg (25-34) Mean Corpuscular Hemoglobin Concent 33.6 g/dl (32-36) Platelet Count 397 K/uL (130-400) Mean Platelet Volume 10.1 fL (7.4-10.4) Neutrophils (%) (Auto) 73.1 % Lymphocytes (%) (Auto) 16.5 % Monocytes (%) (Auto) 7.0 % Eosinophils (%) (Auto) 2.7 % Basophils (%) (Auto) 0.3 % Neutrophils # (Auto) 5.73 K/uL (1.4-6.5) Lymphocytes # (Auto) 1.29 K/uL (1.2-3.4) Monocytes # (Auto) 0.55 K/uL (0.11-0.59) Eosinophils # (Auto) 0.21 K/uL (0-0.5) Basophils # (Auto) 0.02 K/uL (0-0.2) RDW Standard Deviation 49.0 fL (36.4-46.3) RDW Coefficient of Variation 14.5 % (11.5-14.5) Immature Granulocyte % (Auto) 0.4 % Immature Granulocyte # (Auto) 0.03 K/uL (0.00-0.02) Anion Gap 7.0 mmol/L (3-11) Estimated GFR () 51.7 Estimated GFR (Non- 44.6 BUN/Creatinine Ratio 19.8 (10-20) Lactic Acid Level 0.9 mmol/L (0.4-2.0) Calcium Level 9.9 mg/dl (8.5-10.1) Total Bilirubin 0.6 mg/dl (0.2-1) Aspartate Amino Transf (AST/SGOT) 20 U/L (15-37) Alanine Aminotransferase (ALT/SGPT) 21 U/L (12-78) Alkaline Phosphatase 102 U/L (45-117) Troponin I < 0.015 ng/ml (0-0.045) Total Protein 7.5 gm/dl (6.4-8.2) Albumin 3.8 gm/dl (3.4-5.0) Globulin 3.7 gm/dl (2.5-4.0) Albumin/Globulin Ratio 1.0 (0.9-2) Lipase 266 U/L (73-393) Influenza Type A Antigen Neg for Influ A (NEG) Influenza Type B Antigen Neg for Influ B (NEG) Urine Color YELLOW Urine Appearance CLEAR (CLEAR) Urine pH 5.5 (4.5-7.5) Urine Specific [place] 1.008 (1.000-1.030) Urine Protein NEG (NEG) Urine Glucose (UA) NEG (NEG) Urine Ketones NEG (NEG) Urine Occult Blood NEG (NEG) Urine Nitrite POS (NEG) Urine Bilirubin NEG (NEG) Urine Urobilinogen NEG (NEG) Urine Leukocyte Esterase MODERATE (NEG) Urine WBC (Auto) 10-30 /hpf (0-5) Urine RBC (Auto) 0-4 /hpf (0-4) Urine Hyaline Casts (Auto) 1-5 /lpf (0-5) Urine Epithelial Cells (Auto) >30 /lpf (0-5) Urine Bacteria (Auto) 2+ (NEG) Urine Renal Epithelial Cells /lpf (0-5) Laboratory results reviewed by me Medications Administered Medications (Trade) Dose Ordered Sig/Radhika Route Start Time Stop Time Status Last Admin Dose Admin Sodium Chloride 1,000 ml @ 999 mls/hr Q1H1M STAT IV 10/05/17 16:45 10/05/17 17:45 DC 10/05/17 18:15 999 MLS/HR Risperidone (Risperdal Tab) 2 mg NOW ONCE PO 10/05/17 20:15 10/05/17 20:18 DC 10/05/17 20:36 2 MG Buspirone HCl (Buspar Tab) 10 mg ONE STAT PO 10/05/17 20:13 10/05/17 20:18 DC 10/05/17 20:30 10 MG Nitrofurantoin Macrocrystals (Macrobid Cap) 100 mg NOW STAT PO 10/05/17 20:13 10/05/17 20:18 DC 10/05/17 20:30 100 MG ECG Per My Interpretation Indication: other Rate (beats per minute): 103 Rhythm: sinus rhythm Findings: other (ID QRS and QTC within normal limits. No ST elevation or ST depression. Baseline wander due to the patients resting tremor ) ED Course 1638: The patient was evaluated in room A5. A complete history and physical exam was performed. 5: Ordered Sodium Chloride 1000 ml @ 999 mls/hr IV. 2004: I updated the patient's membership coordinator on her test results. 2013: Ordered Macrobid Cap 100 mg PO, Buspar Tab 10 mg PO. 2015: Ordered Risperidone 2 mg PO. Medical Decision Vitals stable, child welfare caseworker at bedside states the patient is acting more like herself and she is able to ambulate now with some assistance. Labs normal with the exception of possible positive urine. Nitrates, leukocyte esterase, white blood cell, and bacteria present; however, there are also many epithelial cells. Will start the patient empirically on an antibiotic for a UTI. Creatinine is also mildly elevated. The patient will be discharged back to the long term with the membership coordinator. Medication Reconcilliation Current Medication List: was personally reviewed by me Blood Pressure Screening Patient's blood pressure: Normal blood pressure Impression Primary Impression: UTI (urinary tract infection) Scribe Attestation The scribe's documentation has been prepared under my direction and personally reviewed by me in its entirety. I confirm that the note above accurately reflects all work, treatment, procedures, and medical decision making performed by me. The chart was completed utilizing [employer] voice recognition software. Grammatical errors, random word insertions, pronoun errors, and incomplete sentences are an occasional consequence of this system due to software limitations, ambient noise, and hardware issues. Any formal questions or concerns about the content, text, or information contained within the body of this dictation should be directly addressed to the physician for clarification. Departure Information Dispostion Home / Self-Care Prescriptions Nitrofurantoin Monohyd Macrocr (Macrobid) 100 Mg Cap 100 MG PO BID for 7 Days, #14 CAP Prov: Tigre Avila M.D. 10/05/17 Forms HOME CARE DOCUMENTATION FORM, IMPORTANT VISIT INFORMATION, WORK / SCHOOL INSTRUCTIONS Patient Instructions ED UTI Cystitis Female, My [facility] Additional Instructions Return to the emergency department if he developed fever greater than 100.4, blood in your urine, or if symptoms worsen. Problem Qualifiers Primary Impression: UTI (urinary tract infection) Urinary tract infection type: acute cystitis Hematuria presence: without hematuria Qualified Codes: N30.00 - Acute cystitis without hematuria
[2017-10-05 17:11] LABS: BASO % 0.3 %; BASO ABS # 0.02 K/uL (0-0.2); EOS % 2.7 %; EOS ABS # 0.21 K/uL (0-0.5); HEMATOCRIT 45.5 % (37-47); HEMOGLOBIN 15.3 g/dL (12.0-16.0); IG# 0.03 K/uL (0.00-0.02); LYMPH % 16.5 %; LYMPH ABS # 1.29 K/uL (1.2-3.4); MEAN CELL VOLUME 92.5 fL (80-100); MEAN CORPUSCULAR HEMOGLOBIN 31.1 pg (25-34); MEAN CORPUSCULAR HGB CONC 33.6 g/dl (32-36); MEAN PLATELET VOLUME 10.1 fL (7.4-10.4); MONO ABS # 0.55 K/uL (0.11-0.59); NEUT % 73.1 %; NEUT ABS # 5.73 K/uL (1.4-6.5); PLATELET COUNT 397 K/uL (130-400); RED CELL DISTRIBUTION WIDTH CV 14.5 % (11.5-14.5); WHITE BLOOD COUNT 7.83 K/uL (4.8-10.8)
--- NOTE | 2017-10-05 17:18 | DIAGNOSTIC IMAGING REPORT ---
CHEST ONE VIEW PORTABLE CLINICAL HISTORY: Acute change in mental status. Lethargy. COMPARISON STUDY: No previous studies for comparison. FINDINGS: The cardiac and mediastinal contours are normal. There is no evidence of focal pulmonary consolidation. There is no evidence of failure. No pleural effusions are visualized.[ There are old posterior back deformity is involving the distal right clavicle. IMPRESSION: No active disease in the chest. Electronically signed by: Javier Donaldson M.D. 10/05/2017 5:16 PM Dictated Date/Time: 10/05/2017 5:15 PM
[2017-10-05 17:55] LABS: ALBUMIN 3.8 gm/dl (3.4-5.0); ALT/SGPT 21 U/L (12-78); CREATININE 1.36 mg/dl (0.60-1.20)
[2017-10-05 17:56] LABS: ALKALINE PHOSPHATASE 102 U/L (45-117); AST/SGOT 20 U/L (15-37); BLOOD UREA NITROGEN 27 mg/dl (7-18); CALCIUM 9.9 mg/dl (8.5-10.1); CARBON DIOXIDE 29 mmol/L (21-32); GLUCOSE 100 mg/dl (70-99); LIPASE 266 U/L (73-393); SODIUM 142 mmol/L (136-145); TOTAL PROTEIN 7.5 gm/dl (6.4-8.2)
[2017-10-05 19:05] LABS: INFLUENZA B ANTIGEN Neg for Influ B (NEG)
--- NOTE | 2017-10-05 19:37 | DIAGNOSTIC IMAGING REPORT ---
CT HEAD WITHOUT CONTRAST (CT) CLINICAL HISTORY: Acute change in mental status LETHARGY, NONVERBAL. COMPARISON STUDY: September 12, 2017 TECHNIQUE: Axial CT of the brain is performed from the vertex to the skull base. IV contrast was not administered for this examination. A dose lowering technique was utilized adhering to the principles of ALARA. CT DOSE: 767.83 mGy.cm FINDINGS: No intra or extra-axial mass lesions are visualized. There is no CT evidence of acute cortical infarction. There is no evidence of midline shift. There is no acute hemorrhage. No calvarial fractures are visualized. There is no evidence of pathologic ventricular dilatation. There is no evidence of acute sinusitis IMPRESSION: No acute intracranial findings Electronically signed by: Javier Donaldson M.D. 10/05/2017 7:35 PM Dictated Date/Time: 10/05/2017 7:32 PM
[2017-10-05] MEDS ORDERED: NITROFURANTOIN MONOHYDRATE 100 MG CAP PO STA (20:13)
[2017-10-05] MEDS ORDERED: RISPERIDONE 1 MG TAB PO ONE (20:15)
[2017-10-05] MEDS ORDERED: NITR-5 PO (20:23)
[2017-10-05 20:43] VITALS: BP 121/81; PULSE 99; O2SAT 96
== END 2017-10-05 20:43 | disposition home or self-care (01) ==
LOC: C.EDB 16:06 → C.EDA 20:43
DX: N30.00 Acute cystitis without hematuria (principal); R79.89 Other specified abnormal findings of blood chemistry; F79 Unspecified intellectual disabilities; E23.2 Diabetes insipidus; R25.1 Tremor, unspecified; Z88.8 Allergy status to other drugs, medicaments and biological substances

== ENCOUNTER 2017-11-04 17:09 | Emergency (ER) | payer OTHER ==
[~2017-11-04] VITALS: Ht 167.6 cm; Wt 67.6 kg
[2017-11-04 17:22] VITALS: BP 126/57; TEMP 36.8; Ht 167.6 cm; Wt 67.6 kg
[2017-11-04 17:31] VITALS: PULSE 80; O2SAT 97
[2017-11-04] MEDS ORDERED: LORAZEPAM 1 MG TAB PO STA ×2 (17:55→18:54)
--- NOTE | 2017-11-04 19:37 | DIAGNOSTIC IMAGING REPORT ---
CT HEAD WITHOUT CONTRAST (CT) CLINICAL HISTORY: Head pain status post trauma. Intellectual disability. COMPARISON STUDY: 10/05/2017 TECHNIQUE: Axial CT of the brain is performed from the vertex to the skull base. IV contrast was not administered for this examination. A dose lowering technique was utilized adhering to the principles of ALARA. CT DOSE: FINDINGS: No intra or extra-axial mass lesions are visualized. There is no CT evidence of acute cortical infarction. There is no evidence of midline shift. There is no acute hemorrhage. No calvarial fractures are visualized. There is no evidence of pathologic ventricular dilatation. There is no evidence of acute sinusitis IMPRESSION: No acute intracranial findings Electronically signed by: Javier Donaldson M.D. 11/04/2017 7:36 PM Dictated Date/Time: 11/04/2017 7:35 PM
--- NOTE | 2017-11-04 19:41 | DIAGNOSTIC IMAGING REPORT ---
CT OF THE CERVICAL SPINE CLINICAL HISTORY: Neck pain status post trauma. Electrode disability. COMPARISON STUDY: April 02, 2017 CT DOSE: TECHNIQUE: CT scan of the cervical spine was performed from the skull base to the thoracic inlet. Images are reviewed in the axial, sagittal, and coronal planes. IV contrast was not administered for this examination. A dose lowering technique was utilized adhering to the principles of ALARA. FINDINGS: The visualized portions of the lung apices reveal no evidence of pneumothorax. There is incomplete posterior C1 arch. This remains unchanged the prior study and is felt to be developmental. No acute fractures or traumatic subluxations are visualized. There are multilevel degenerative changes IMPRESSION: No evidence of acute fracture or traumatic subluxation. Electronically signed by: Javier Donaldson M.D. 11/04/2017 7:40 PM Dictated Date/Time: 11/04/2017 7:38 PM
--- NOTE | 2017-11-04 19:49 | DIAGNOSTIC IMAGING REPORT ---
CT FACIAL BONES-MXILLOFAC WITHOUT CT DOSE: 1301.22 mGy.cm CLINICAL HISTORY: Facial pain status post trauma. A collection of disability. COMPARISON STUDY: May 2016 TECHNIQUE: Helical images were acquired in the transverse plane. The study was reviewed and analyzed on the independent 3-D workstation. A dose lowering technique was utilized adhering to the principles of ALARA. The pterygoid plates appear intact. The zygomatic arches appear intact. The globes appear intact. There is no evidence of orbital emphysema. The orbital estrada and floor appear intact. There is a chronic left mandibular deformity. There is no evidence of acute mandibular fracture or dislocation. The evaluation of mandible is slightly limited due to motion artifact. There is nasal septal deviation. There aren't nasal bone fracture similar to the prior study and likely old. There is mucosal thickening within the sphenoid. The tomographic image demonstrates an old right clavicular fracture IMPRESSION: 1. Nasal bone fractures, likely old. 2. Deformity of the left hemimandible which is felt to be old. Electronically signed by: Javier Donaldson M.D. 11/04/2017 7:48 PM Dictated Date/Time: 11/04/2017 7:44 PM
--- NOTE | 2017-11-04 20:51 | EMERGENCY ROOM VISIT NOTE ---
History First contact with patient: 17:42 Chief Complaint: NASAL PAIN/INJURY Stated Complaint: BRUISING AROUND NOSE History of Present Illness The patient is a 52 year old female who presents to the Emergency Room with complaints of bruising around her nose that was noticed today. Patient is accompanied by caregivers as [facility]. Patient evidently went to "day activities" today, and when she returned it was noted that she had the bruising. 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 She is not able to communicate a history of present illness. Review of Systems Review of systems unable to be performed as the patient is MHMR and nonverbal Past Medical/Surgical History Medical Problems: (1) Acute head injury (2) Cellulitis of foot, left (3) Closed head injury (4) Diabetes insipidus (5) Fall (6) Hysterectomy (7) Laceration of scalp (8) Lip laceration (9) Mental retardation (10) Nasal bone fracture (11) Nasal bone fractures Family History No reported family history Social History Smoking Status: Never Smoker Alcohol Use: none Drug Use: none Marital Status: single Housing Status: assisted living Occupation Status: disabled Current/Historical Medications Scheduled Alendronate Sodium (Fosamax), 70 MG PO WK Amantadine HCl (Amantadine HCl), 100 MG PO QAM Buspirone Hcl (Buspirone Hcl), 10 MG PO TID Calcium Carbonate (Calcium 600), 1,200 MG PO QAM Levothyroxine Sodium (Levothyroxine Sodium), 137 MCG PO QAM Lisinopril (Lisinopril), 2.5 MG PO QAM Loratadine (Claritin), 10 MG PO QAM Melatonin (Melatonin), 2 MG PO HS Multivitamins/Minerals (Mvi With Minerals), 1 TAB PO QAM Polyethylene Glycol 3350 (Polyethylene Glycol 3350), 1 DOSE PO BID Psyllium (Konsyl), 1 TSP PO DAILY Risperidone (Risperidone), 2 MG PO QPM Sennosides (Senexon), 8.6 MG PO BID Simvastatin (Zocor), 20 MG PO HS Trazodone Hcl (Trazodone), 400 MG PO QPM Scheduled PRN Bisacodyl (Dulcolax), [address] every 3 days PRN for if no med-large bm Fluticasone Propionate (Nasal) (Flonase Allergy Relief), 1 SPRAY ZOYA BID PRN for CONGSTION Miscellaneous Medications Saline ([place] Nasal [place]), 1 SPRAY ZOYA Physical Exam Vital Signs Date Time Temp Pulse Resp B/P (MAP) Pulse Ox O2 Delivery O2 Flow Rate FiO2 11/04/17 17:31 80 97 Room Air 11/04/17 17:22 36.8 18 126/57 Room Air Physical Exam VITALS: Vitals are noted on the nurse's note and reviewed by myself. Vital signs stable. GENERAL: White female who is nonverbal. She appears comfortable and is laying flat in her emergency department bed. She does have a fine tremor in her bilateral hands. HEAD: Normocephalic atraumatic. EARS: External ear normal. External auditory canals clear, tympanic membranes pearly flores without erythema or effusion bilaterally. EYES: Pupils equal round and reactive to light and accommodation. Conjunctivae without injection, sclerae without icterus. Extraocular movements intact. NOSE: Bruising noted across the bilateral bridge of the nose. There is no epistaxis or septal hematoma. MOUTH: Mucous membranes moist. Tonsils are not enlarged. Pharynx without erythema, blood, or exudate. Uvula midline. Airway patent. NECK: Supple without nuchal rigidity. No lymphadenopathy. No thyromegaly. Cervical spine is nontender. HEART: Regular rate and rhythm without murmurs gallops or rubs. LUNGS: Clear to auscultation bilaterally without wheezes, rales or rhonchi. No retractions or accessory muscle use. Medical Decision & Procedures ER Provider Diagnostic Interpretation: CT HEAD WITHOUT CONTRAST (CT) CLINICAL HISTORY: Head pain status post trauma. Intellectual disability. COMPARISON STUDY: 10/05/2017 TECHNIQUE: Axial CT of the brain is performed from the vertex to the skull base. IV contrast was not administered for this examination. A dose lowering technique was utilized adhering to the principles of ALARA. CT DOSE: FINDINGS: No intra or extra-axial mass lesions are visualized. There is no CT evidence of acute cortical infarction. There is no evidence of midline shift. There is no acute hemorrhage. No calvarial fractures are visualized. There is no evidence of pathologic ventricular dilatation. There is no evidence of acute sinusitis IMPRESSION: No acute intracranial findings CT FACIAL BONES-MXILLOFAC WITHOUT CT DOSE: 1301.22 mGy.cm CLINICAL HISTORY: Facial pain status post trauma. A collection of disability. COMPARISON STUDY: May 2016 TECHNIQUE: Helical images were acquired in the transverse plane. The study was reviewed and analyzed on the independent 3-D workstation. A dose lowering technique was utilized adhering to the principles of ALARA. The pterygoid plates appear intact. The zygomatic arches appear intact. The globes appear intact. There is no evidence of orbital emphysema. The orbital estrada and floor appear intact. There is a chronic left mandibular deformity. There is no evidence of acute mandibular fracture or dislocation. The evaluation of mandible is slightly limited due to motion artifact. There is nasal septal deviation. There aren't nasal bone fracture similar to the prior study and likely old. There is mucosal thickening within the sphenoid. The tomographic image demonstrates an old right clavicular fracture IMPRESSION: 1. Nasal bone fractures, likely old. 2. Deformity of the left hemimandible which is felt to be old. CT OF THE CERVICAL SPINE CLINICAL HISTORY: Neck pain status post trauma. Electrode disability. COMPARISON STUDY: April 02, 2017 CT DOSE: TECHNIQUE: CT scan of the cervical spine was performed from the skull base to the thoracic inlet. Images are reviewed in the axial, sagittal, and coronal planes. IV contrast was not administered for this examination. A dose lowering technique was utilized adhering to the principles of ALARA. FINDINGS: The visualized portions of the lung apices reveal no evidence of pneumothorax. There is incomplete posterior C1 arch. This remains unchanged the prior study and is felt to be developmental. No acute fractures or traumatic subluxations are visualized. There are multilevel degenerative changes IMPRESSION: No evidence of acute fracture or traumatic subluxation. Medications Administered Medications (Trade) Dose Ordered Sig/Radhika Route Start Time Stop Time Status Last Admin Dose Admin Lorazepam (Ativan Tab) 2 mg NOW STAT PO 11/04/17 17:55 11/04/17 17:56 DC 11/04/17 18:16 2 MG Lorazepam (Ativan Tab) 2 mg NOW STAT PO 11/04/17 18:54 11/04/17 18:55 DC 11/04/17 18:54 2 MG ED Course Physical exam and history were performed. Nursing notes, EMR, and Medication List were personally reviewed. Patient appears to have outward signs of injury to her nose. The patient is nonverbal and lives at a jail. Because of her exam and status I did elect to perform CT scan of the head, neck, and face. The patient did require 2 doses of Ativan prior to imaging, however following medication she was able to tolerate this very well. Case was discussed with my attending physician, Dr. Kaur, who also independently evaluated the patient. The patient's CT scans are as above and were reviewed. She does not appear to have acute fracture or bleed. She may have old nasal bone fractures, and on repeat exam does not show any mandible discomfort. Overall the patient appears well for discharge home. She may have a contusion to this area or possibly even a re-break of the old nasal fractures. The patient will be treated conservatively and asked to follow with the PCP for any ongoing issues. Caregivers were pleased with this and were comfortable with taking her home. The chart was completed utilizing [employer] Speech Voice Recognition Software. Grammatical errors, random word insertions, pronoun errors, and incomplete sentences are an occasional consequence of this system due to software limitations, ambient noise, and hardware issues. Any formal questions or concerns about the content, text, or information contained within the body of this dictation should be directly addressed to the provider for clarification. . Medical Decision Differential diagnosis: Etiologies such as concussion, contusion, fracture, subdural hematoma, epidural hematoma, intraparenchymal hemorrhage, as well as other traumatic pathologies were entertained. Impression Primary Impression: Nasal bone fractures Departure Information Dispostion Home / Self-Care Condition GOOD Referrals Dmitry Romero III, M.D. (PCP) Forms HOME CARE DOCUMENTATION FORM, IMPORTANT VISIT INFORMATION Patient Instructions My [facility] Additional Instructions You were seen and evaluated today on an emergency basis only. This is not a substitute for, or an effort to provide, complete comprehensive medical care. It is not possible to recognize and treat all injuries or illnesses in a single emergency department visit. For this reason it is recommended that you followup with your primary care physician for ongoing care and evaluation. There are nasal bone fractures on CT images today. These favor an old injury. No other new injuries were identified. You are welcome to return to the emergency department anytime with new, worsening, or concerning symptoms.
--- NOTE | 2017-11-04 21:49 | EMERGENCY ROOM VISIT NOTE ---
ED Visit Note First contact with patient: 17:42 I have personally evaluated and examined this patient. I agree with assessment and plan of Trino Lopez PA-C.
[2017-11-05] MEDS ORDERED: CEPH-571 PO (11:00)
[2017-11-05] MEDS ORDERED: SERT25TA PO (11:02)
== END 2017-11-04 20:10 | disposition home or self-care (01) ==
LOC: C.EDB 17:10 → C.EDD 20:10
DX: S02.2XXG Fracture of nasal bones, subsequent encounter for fracture with delayed healing (principal); X58.XXXD Exposure to other specified factors, subsequent encounter; F79 Unspecified intellectual disabilities; E23.2 Diabetes insipidus

== ENCOUNTER 2017-11-05 08:58 | Emergency (ER) | payer OTHER ==
--- NOTE | 2017-11-05 09:49 | DIAGNOSTIC IMAGING REPORT ---
CHEST ONE VIEW PORTABLE CLINICAL HISTORY: Altered mental status. COMPARISON STUDY: Chest radiograph October 05, 2017. FINDINGS: No pneumothorax or pleural effusion is noted. There is old post traumatic deformity of the distal right clavicle. There is no evidence for pulmonary edema. Cardiac mediastinal silhouette is unremarkable. Appearance of the chest is unchanged. IMPRESSION: No acute cardiopulmonary findings. Electronically signed by: Jalen Hernandez M.D. 11/05/2017 9:47 AM Dictated Date/Time: 11/05/2017 9:47 AM
[2017-11-05 10:03] LABS: BASO % 0.2 %; BASO ABS # 0.02 K/uL (0-0.2); EOS % 1.4 %; EOS ABS # 0.15 K/uL (0-0.5); HEMATOCRIT 45.7 % (37-47); HEMOGLOBIN 15.6 g/dL (12.0-16.0); IG# 0.04 K/uL (0.00-0.02); LYMPH % 9.7 %; LYMPH ABS # 1.01 K/uL (1.2-3.4); MEAN CELL VOLUME 92.1 fL (80-100); MEAN CORPUSCULAR HEMOGLOBIN 31.5 pg (25-34); MEAN CORPUSCULAR HGB CONC 34.1 g/dl (32-36); MONO % 6.1 %; MONO ABS # 0.63 K/uL (0.11-0.59); NEUT % 82.2 %; NEUT ABS # 8.54 K/uL (1.4-6.5); PLATELET COUNT 422 K/uL (130-400); RED CELL DISTRIBUTION WIDTH CV 14.5 % (11.5-14.5); RED CELL DISTRIBUTION WIDTH SD 48.6 fL (36.4-46.3); WHITE BLOOD COUNT 10.39 K/uL (4.8-10.8)
[2017-11-05 10:13] LABS: INR 1.1 (0.9-1.1); PTT PATIENT 32.5 SECONDS (21.0-31.0)
--- NOTE | 2017-11-05 10:17 | DIAGNOSTIC IMAGING REPORT ---
CT OF THE HEAD WITHOUT CONTRAST CLINICAL HISTORY: Fall. Left-sided head injury. Altered mental status. COMPARISON STUDY: Head CT November 04, 2017 and October 05, 2017. CT DOSE: 1382.10 mGy.cm TECHNIQUE: Helical axial images of the head were obtained without IV contrast. Automated exposure control was utilized for the study. A dose lowering technique was utilized adhering to the principles of ALARA. FINDINGS: Exam is mildly compromised by motion artifact. No acute intracranial hemorrhage, midline shift or mass effect is present. Ventricular system is normal. Basilar cisterns are patent. There are no extra-axial collections. Wilkinson-white differentiation is maintained. There are old bilateral nasal bone fractures. Lucency within the anterior arch of C1 with corticated margins is chronic. There is no calvarial fracture although sensitivity for detection of nondisplaced calvarial fractures is diminished on this exam. Mild mucosal thickening of the left maxillary sinus. IMPRESSION: No acute intracranial findings. Study mildly compromised by motion artifact. Electronically signed by: Jalen Hernandez M.D. 11/05/2017 10:15 AM Dictated Date/Time: 11/05/2017 10:12 AM
[2017-11-05 10:34] LABS: ALBUMIN 3.9 gm/dl (3.4-5.0); ALT/SGPT 27 U/L (12-78); AST/SGOT 50 U/L (15-37); BLOOD UREA NITROGEN 19 mg/dl (7-18); CALCIUM 10.2 mg/dl (8.5-10.1); CARBON DIOXIDE 29 mmol/L (21-32); CREATININE 1.07 mg/dl (0.60-1.20); GLUCOSE 93 mg/dl (70-99); SODIUM 142 mmol/L (136-145)
[2017-11-05 10:35] LABS: ALKALINE PHOSPHATASE 114 U/L (45-117); TOTAL PROTEIN 7.2 gm/dl (6.4-8.2)
[2017-11-05] MEDS ORDERED: CEPH-571 PO (11:00)
[2017-11-05] MEDS ORDERED: CEPHALEXIN MONOHYDRATE 250 MG CAP PO ONE (11:00)
[2017-11-05] MEDS ORDERED: SERT25TA PO (11:02)
[2017-11-05 11:17] VITALS: BP 108/73; PULSE 113; O2SAT 96
--- NOTE | 2017-11-05 14:05 | EMERGENCY ROOM VISIT NOTE ---
History Report prepared by Rajibthomas: Tram Phillips Under the Supervision of: Dr. Alfredo Glass D.O. First contact with patient: 09:10 Chief Complaint: HEAD INJURY (MINOR) Stated Complaint: HIT HEAD, CAN'T WALK BY HERSELF History of Present Illness The patient is a 52 year old female who presents to the Emergency Room with complaints of an episode of a fall occurring just prior to arrival. Per staff member, the patient was going to the bathroom and needed assistance to walk which is not baseline for her. The patient comes from the [facility]. Per staff, when the patient fell she had staff on both sides of her and she was lowered to the ground. Per staff, the patient hit her head on the ground from the fall. The patient did not loose consciousness. The patient was seen in the ED yesterday for a fall and she had a CT cervical spine, head, and face which were all unremarkable. The patient was given 3 doses of Lorazepam yesterday around 8 pm. Per staff, after the lorazepam, the patient was groggy and and was unable to walk. Presently, the staff reports the patient is more alert than she was this morning. Source of History: caregiver Onset: this morning Position: other (generalized) Quality: other (fall) Timing: other (episode) Associated Symptoms: No LOC Review of Systems See HPI for pertinent positives & negatives. A total of 10 systems reviewed and were otherwise negative. Past Medical & Surgical Medical Problems: (1) Acute head injury (2) Cellulitis of foot, left (3) Closed head injury (4) Diabetes insipidus (5) Fall (6) Hysterectomy (7) Laceration of scalp (8) Lip laceration (9) Mental retardation (10) Nasal bone fracture (11) Nasal bone fractures Family History No reported family history Social History Smoking Status: Never Smoker Alcohol Use: none Drug Use: none Marital Status: single Housing Status: assisted living Occupation Status: disabled Current/Historical Medications Scheduled Alendronate Sodium (Fosamax), 70 MG PO WK Amantadine HCl (Amantadine HCl), 100 MG PO QAM Buspirone Hcl (Buspirone Hcl), 10 MG PO TID Calcium Carbonate (Calcium 600), 1,200 MG PO QAM Cephalexin (Keflex), 1 CAP PO TID Levothyroxine Sodium (Levothyroxine Sodium), 137 MCG PO QAM Lisinopril (Lisinopril), 2.5 MG PO QAM Loratadine (Claritin), 10 MG PO QAM Melatonin (Melatonin), 2 MG PO HS Multivitamins/Minerals (Mvi With Minerals), 1 TAB PO QAM Polyethylene Glycol 3350 (Polyethylene Glycol 3350), 1 DOSE PO BID Psyllium (Konsyl), 1 TSP PO DAILY Risperidone (Risperidone), 2 MG PO QPM Sennosides (Senexon), 8.6 MG PO BID Sertraline (Zoloft), 25 MG PO DAILY Simvastatin (Zocor), 20 MG PO HS Trazodone Hcl (Trazodone), 400 MG PO QPM Scheduled PRN Bisacodyl (Dulcolax), 1 SUPP GA every 3 days PRN for if no med-large bm Fluticasone Propionate (Nasal) (Flonase Allergy Relief), 1 SPRAY ZOYA BID PRN for CONGSTION Miscellaneous Medications Saline (Bertie Nasal [place]), 1 SPRAY ZOYA Allergies Coded Allergies: Benztropine (Verified Allergy, Mild, 11/05/17) Pseudoephedrine (Verified Allergy, Mild, 11/05/17) Physical Exam Vital Signs Date Time Temp Pulse Resp B/P (MAP) Pulse Ox O2 Delivery O2 Flow Rate FiO2 11/05/17 11:17 113 18 108/73 96 11/05/17 09:02 113 18 108/73 96 Room Air Physical Exam GENERAL: alert, sitting in wheelchair, well nourished, no distress, non-toxic HEAD: normal cephalic, small contusion over bridge of nose. EYE EXAM: normal conjunctiva, PERRL and EOM's grossly intact OROPHARYNX: no exudate, no erythema, lips, buccal mucosa, and tongue normal and mucous membranes are moist NECK: supple, no nuchal rigidity, no adenopathy, non-tender CHEST: stable to compression anteriorly and posteriorly LUNGS: clear to auscultation. Normal chest wall mechanics HEART: no murmurs, S1 normal and S2 normal ABDOMEN: abdomen soft, non-tender, normo-active bowel sounds, no masses, no rebound or guarding. PELVIS: stable to compression anteriorly and posteriorly BACK: Back is symmetrical on inspection and there is no deformity, no midline tenderness, no CVA tenderness. UPPER EXTREMITIES: full active and passive range of motion of all joints without tenderness to palpation LOWER EXTREMITIES: full active and passive range of motion of all joints without tenderness to palpation NEURO EXAM: Awake, alert, able to ambulate around room, no focal deficits. Medical Decision & Procedures ER Provider Diagnostic Interpretation: Radiology results as stated below per my review and the radiologist's interpretation: CHEST ONE VIEW PORTABLE FINDINGS: No pneumothorax or pleural effusion is noted. There is old post traumatic deformity of the distal right clavicle. There is no evidence for pulmonary edema. Cardiac mediastinal silhouette is unremarkable. Appearance of the chest is unchanged. IMPRESSION: No acute cardiopulmonary findings. Electronically signed by: Jalen Hernandez M.D CT OF THE HEAD WITHOUT CONTRAST FINDINGS: Exam is mildly compromised by motion artifact. No acute intracranial hemorrhage, midline shift or mass effect is present. Ventricular system is normal. Basilar cisterns are patent. There are no extra-axial collections. Wilkinson-white differentiation is maintained. There are old bilateral nasal bone fractures. Lucency within the anterior arch of C1 with corticated margins is chronic. There is no calvarial fracture although sensitivity for detection of nondisplaced calvarial fractures is diminished on this exam. Mild mucosal thickening of the left maxillary sinus. IMPRESSION: No acute intracranial findings. Study mildly compromised by motion artifact. Electronically signed by: Jalen Hernandez M.D. Laboratory Results 11/05/17 09:50 Red Blood Count 4.96, Mean Corpuscular Volume 92.1, Mean Corpuscular Hemoglobin 31.5, Mean Corpuscular Hemoglobin Concent 34.1, Mean Platelet Volume 10.0, Neutrophils (%) (Auto) 82.2, Lymphocytes (%) (Auto) 9.7, Monocytes (%) (Auto) 6.1, Eosinophils (%) (Auto) 1.4, Basophils (%) (Auto) 0.2, Neutrophils # (Auto) 8.54, Lymphocytes # (Auto) 1.01, Monocytes # (Auto) 0.63, Eosinophils # (Auto) 0.15, Basophils # (Auto) 0.02 11/05/17 09:50 Test 11/05/17 09:45 11/05/17 09:50 Urine Color YELLOW Urine Appearance CLEAR (CLEAR) Urine pH 8.0 (4.5-7.5) Urine Specific [place] 1.008 (1.000-1.030) Urine Protein NEG (NEG) Urine Glucose (UA) NEG (NEG) Urine Ketones NEG (NEG) Urine Occult Blood NEG (NEG) Urine Nitrite NEG (NEG) Urine Bilirubin NEG (NEG) Urine Urobilinogen NEG (NEG) Urine Leukocyte Esterase SMALL (NEG) Urine WBC (Auto) 1-5 /hpf (0-5) Urine RBC (Auto) 0-4 /hpf (0-4) Urine Hyaline Casts (Auto) 0 /lpf (0-5) Urine Epithelial Cells (Auto) 0-5 /lpf (0-5) Urine Bacteria (Auto) 2+ (NEG) White Blood Count 10.39 K/uL (4.8-10.8) Red Blood Count 4.96 M/uL (4.2-5.4) Hemoglobin 15.6 g/dL (12.0-16.0) Hematocrit 45.7 % (37-47) Mean Corpuscular Volume 92.1 fL (80-100) Mean Corpuscular Hemoglobin 31.5 pg (25-34) Mean Corpuscular Hemoglobin Concent 34.1 g/dl (32-36) Platelet Count 422 K/uL (130-400) Mean Platelet Volume 10.0 fL (7.4-10.4) Neutrophils (%) (Auto) 82.2 % Lymphocytes (%) (Auto) 9.7 % Monocytes (%) (Auto) 6.1 % Eosinophils (%) (Auto) 1.4 % Basophils (%) (Auto) 0.2 % Neutrophils # (Auto) 8.54 K/uL (1.4-6.5) Lymphocytes # (Auto) 1.01 K/uL (1.2-3.4) Monocytes # (Auto) 0.63 K/uL (0.11-0.59) Eosinophils # (Auto) 0.15 K/uL (0-0.5) Basophils # (Auto) 0.02 K/uL (0-0.2) RDW Standard Deviation 48.6 fL (36.4-46.3) RDW Coefficient of Variation 14.5 % (11.5-14.5) Immature Granulocyte % (Auto) 0.4 % Immature Granulocyte # (Auto) 0.04 K/uL (0.00-0.02) Prothrombin Time 11.1 SECONDS (9.0-12.0) Prothromb Time International Ratio 1.1 (0.9-1.1) Activated Partial Thromboplast Time 32.5 SECONDS (21.0-31.0) Partial Thromboplastin Ratio 1.3 Anion Gap 9.0 mmol/L (3-11) Estimated GFR () 69.1 Estimated GFR (Non- 59.6 BUN/Creatinine Ratio 17.8 (10-20) Calcium Level 10.2 mg/dl (8.5-10.1) Total Bilirubin 0.5 mg/dl (0.2-1) Direct Bilirubin mg/dl (0-0.2) Aspartate Amino Transf (AST/SGOT) 50 U/L (15-37) Alanine Aminotransferase (ALT/SGPT) 27 U/L (12-78) Alkaline Phosphatase 114 U/L (45-117) Total Protein 7.2 gm/dl (6.4-8.2) Albumin 3.9 gm/dl (3.4-5.0) Chemistry Specimen Hemolysis Laboratory results per my review. ED Course ED COURSE: Vital signs were reviewed and showed tachycardic The patients medical record was reviewed The above diagnostic studies were performed and reviewed. ED treatments and interventions as stated above. 0915: The patient was evaluated in room B8. A complete history and physical examination was performed. 1100: Ordered Keflex Cap 500 mg PO. 1105: I updated the patient's caregivers on her test results. They report the patient has improved but is not entirely back to baseline. 1114: Upon reevaluation, the patient is resting comfortably.I discussed my findings with the patient and her caregivers and they understand and agrees with the treatment plan. Based on the patients age, coexisting illnesses, exam and lab findings the decision to treat as an outpatient was made. The patient remained stable while under my care. The patient appeared well at the time of discharge. Medical Decision Differential diagnoses include major intracranial, cervical, spinal, thoracic, abdominal, pelvic and neurologic injury. Fracture, contusion, sprain, strain, laceration, abrasions included as well. Patient is a 52-year-old female who presents the ER for a fall this morning. Patient fell yesterday and had a CT of the head, neck and cervical spine which showed a nasal bone fracture. CBC along with BMP, LFTs, bilirubin was unremarkable. UA with a small amount bacteria. No white cells. Was able to obtain repeat CT following ambulated the patient around the room with no assistance. Caretakers note she is getting close to her normal. Labs were otherwise unremarkable. Did put her on a short course of Keflex and discharged her to follow-up as an outpatient. There is no other signs of trauma. I do favor her symptoms are likely secondary to the sedation she received last night and possible concussion. Caretakers were updated at bedside and she was discharged to follow-up with PCP as an outpatient. There were given appropriate guidance. Medication Reconcilliation Current Medication List: was personally reviewed by me Blood Pressure Screening Patient's blood pressure: Normal blood pressure Impression Primary Impression: Concussion Additional Impression: UTI (urinary tract infection) Scribe Attestation The scribe's documentation has been prepared under my direction and personally reviewed by me in its entirety. I confirm that the note above accurately reflects all work, treatment, procedures, and medical decision making performed by me. Departure Information Dispostion Home / Self-Care Prescriptions Cephalexin (KEFLEX) 500 Mg Cap 1 CAP PO TID for 7 Days, #21 CAP Prov: Alfredo Glass, 11/05/17 Referrals Dmitry Romero III, M.D. (PCP) Forms HOME CARE DOCUMENTATION FORM, IMPORTANT VISIT INFORMATION Patient Instructions Concussion Dc, ED UTI Cystitis Female, My [facility] Additional Instructions Please follow up with your primary care doctor with in the next 24 hours. Any worsening of your symptoms, please return to the ED immediately. This includes any fevers greater than 100.4, worsening pain, chest pain, shortness breath, persistent nausea, vomiting, unable to eat or drink, or any other concerning signs or symptoms from your standpoint. Please take Keflex as prescribed. Please monitor her closely and have someone assist her with ambulation until she becomes more steady. Problem Qualifiers Primary Impression: Concussion Encounter type: initial encounter Loss of consciousness presence/duration: with LOC of unspecified duration Qualified Codes: S06.0X9A - Concussion with loss of consciousness of unspecified duration, initial encounter Additional Impression: UTI (urinary tract infection) Urinary tract infection type: acute cystitis Hematuria presence: with hematuria Qualified Codes: N30.01 - Acute cystitis with hematuria
--- NOTE | 2017-11-07 15:08 | Pharmacy Progress Note ---
ED Pharmacist Culture FollowUp Date of Service: Nov 07, 2017. Patient with Enterobacter in the urine, originally discharged on keflex. Discussed with Dr. Glass who originally saw the patient. We will stop the keflex and switch to cefdinir 300mg BID X 7 days. I called the number listed and was connected with [facility] the [facility] resides. The irrigation supervisor [facility], Eddie stated that she contacted the patient's PCP, Dr. Romero to receive a D/C order for the keflex, as per facility requirement. I then called in a prescription for cefdinir 300mg BID X 7 days to [facility].
== END 2017-11-05 11:22 | disposition home or self-care (01) ==
LOC: C.EDB 09:00
DX: S06.0X0A Concussion without loss of consciousness, initial encounter (principal); S02.2XXD Fracture of nasal bones, subsequent encounter for fracture with routine healing; W19.XXXA Unspecified fall, initial encounter; N30.01 Acute cystitis with hematuria; F79 Unspecified intellectual disabilities; E23.2 Diabetes insipidus

== ENCOUNTER 2017-12-18 04:48 | Emergency (ER) | payer OTHER ==
[2017-12-18 04:48] VITALS: TEMP 36.8
[~2017-12-18 04:48] MED LIST changes: +SERT25TA PO
[2017-12-18] MEDS ORDERED: LIDOCAINE/EPINEPH/TETRACAINE 1 EA SYR ONE (04:54)
[2017-12-18] MEDS ORDERED: FSMD/70 PO (05:07)
[2017-12-18] MEDS ORDERED: [UNRECOGNIZED DRUG - CODE] PO (05:11)
--- NOTE | 2017-12-18 05:50 | EMERGENCY ROOM VISIT NOTE ---
ED Visit Note First contact with patient: 04:50 I have personally evaluated and examined this patient. I agree with assessment and plan of Mony Bedoya PA-C.
--- NOTE | 2017-12-18 05:57 | EMERGENCY ROOM VISIT NOTE ---
History First contact with patient: 04:50 Chief Complaint: FALL Stated Complaint: FALL/LACERATION History of Present Illness The patient is a 52 year old female who presents to the Emergency Room with complaints of fall tonight when walking to the bathroom per staff and EMS. Patient is nonverbal and history is obtained from the staff and EMS. Patient does ambulate and does not use an assistive device. She is suppose to but refuses to use it. Staff states she falls frequently. This is not new for her. Staff states she got up to the bathroom and they heard her fall and went in to evaluate. No known loss of consciousness. She has a laceration to the left eyebrow region. Staff states she is acting at her baseline. No other injuries are noted. No vomiting. No lethargy. No abnormal behavior. Tetanus is current per staff. Review of Systems Unable to assess secondary to patient's baseline MR and being nonverbal Past Medical/Surgical History Medical Problems: (1) Acute head injury (2) Cellulitis of foot, left (3) Closed head injury (4) Diabetes insipidus (5) Fall (6) Hysterectomy (7) Laceration of scalp (8) Lip laceration (9) Mental retardation (10) Nasal bone fracture (11) Nasal bone fractures Family History No reported family history Social History Smoking Status: Never Smoker Alcohol Use: none Drug Use: none Marital Status: single Housing Status: assisted living Occupation Status: disabled Current/Historical Medications Scheduled Alendronate Sodium (Fosamax), 70 MG PO WK Amantadine HCl (Amantadine HCl), 100 MG PO QAM Buspirone Hcl (Buspirone Hcl), 10 MG PO TID Calcium Carbonate (Calcium 600), 1,200 MG PO QAM Levothyroxine Sodium (Levothyroxine Sodium), 137 MCG PO QAM Lisinopril (Lisinopril), 2.5 MG PO QAM Loratadine (Claritin), 10 MG PO QAM Melatonin (Melatonin), 2 MG PO HS Multivitamins/Minerals (Mvi With Minerals), 1 TAB PO QAM Polyethylene Glycol 3350 (Polyethylene Glycol 3350), 1 DOSE PO BID Psyllium (Qc Natural Vegetable), 1 DOSE PO QAM Risperidone (Risperidone), 2 MG PO QPM Sennosides (Senexon), 8.6 MG PO BID Sertraline (Zoloft), 25 MG PO DAILY Simvastatin (Zocor), 20 MG PO HS Trazodone Hcl (Trazodone), 400 MG PO QPM Scheduled PRN Bisacodyl (Dulcolax), 1 SUPP [place] every 3 days PRN for if no med-large bm Fluticasone Propionate (Nasal) (Flonase Allergy Relief), 1 SPRAY ZOYA BID PRN for CONGSTION Physical Exam Vital Signs Date Time Temp Pulse Resp B/P (MAP) Pulse Ox O2 Delivery O2 Flow Rate FiO2 12/18/17 04:48 36.8 75 18 123/75 98 Room Air Physical Exam PHYSICAL EXAM: VITALS: Vitals are noted on the nurse's note and reviewed by myself. Vital signs stable. GENERAL: Pleasant female nonverbal, in no acute distress, nondiaphoretic, well- developed well-nourished. SKIN: 3 cm left eyebrow laceration is gaping appears clean. The rest of the skin was without obvious lacerations or abrasions. Capillary reflex less than 2 seconds. HEAD: Normocephalic atraumatic. EARS: External auditory canals clear, tympanic membranes pearly flores without erythema or effusion bilaterally. No hemotympanums. No mckinnon sign. No mastoid tenderness. EYES: Pupils equal round and reactive to light and accommodation. Conjunctivae without injection, sclerae without icterus. Extraocular movements intact. NOSE: Patent, turbinates without inflammation or discharge. No sinus tenderness. No septal hematoma or bleeding. FACE: No facial bone tenderness. Full range of motion of the jaw without tenderness. MOUTH: Mucous membranes moist. Pharynx without erythema or exudate. Uvula midline. Airway patent. Tongue does not deviate. NECK: Supple without nuchal rigidity. Cervical spine is nontender. Full range of motion of the neck without tenderness. No JVD. HEART: Regular rate and rhythm LUNGS: Clear to auscultation bilaterally without wheezes, rales or rhonchi. No dullness to percussion. No retractions or accessory muscle use. No chest wall tenderness. ABDOMEN: Positive bowel sounds x 4. Normal tympanic percussion. Soft, nontender, without masses or organomegaly. No guarding or rebound tenderness. MUSCULOSKELETAL: No tenderness of the thoracic or lumbar spine. No tenderness with pelvic rocking. Full range of motion without tenderness to palpation in all extremities. Strength 5/5 throughout. Peripheral pulses 2+. NEURO: Patient was alert and occasionally mumbles nonsense which is baseline per staff. No focal neurological deficits. Medical Decision & Procedures Medications Administered Medications (Trade) Dose Ordered Sig/Radhika Route Start Time Stop Time Status Last Admin Dose Admin Tetracaine/ Epinephrine/ Lidocaine (L.e.t. Gel 4%/ 1:100/0.5%) 1 ea STK-MED ONCE .ROUTE 12/18/17 04:54 12/18/17 04:55 DC 12/18/17 05:19 1 EA Procedure Location: face Total length: 3 cm Complexity: Simple Verbal consent was obtained after the risks and benefits were explained, including but not limited to bleeding, scarring, infection, pain, and bone/joint /nerve damage. At this time, the risks of the procedure are less than the risks of NOT performing the procedure. A time out was taken and the correct patient and site identified. The skin was prepped with betadine. The target area was anesthetized with LET. Copious irrigation was performed using NSS. The skin was re-prepped with betadine and a sterile field set. The wound was explored for foreign bodies and none found. Examination revealed no injury to deep structures such as tendons, bone, or significant blood vessels. Debridement was not performed. The wound edges were approximated using 6, 6-0 simple interrupted nylon sutures. Hemostasis and excellent approximation was achieved. Antibacterial ointment and a sterile dressing applied. Detailed wound care instructions and signs and symptoms of infection reviewed with the caregiver. No complications and the patient tolerated the procedure well. ED Course Prior records/ancillary studies reviewed. Triage Nursing notes reviewed. Additional history obtained from staff and EMS The patient's history was concerning for traumatic head injury Differential diagnosis: Etiologies such as concussion, contusion, fracture, subdural hematoma, epidural hematoma, intraparenchymal hemorrhage, as well as other traumatic pathologies were entertained. Physical examination findings: As above. ER treatment provided: Laceration repaired as above On reassessment the patient felt better. Diagnostics interpreted by me: Imaging studies: CT FACIAL: Comparison 11/04/2017 Left frontal/periorbital scalp laceration. No underlying fracture. No evidence for globe injury. Stable nasal bone deformities. Stable mandible deformity. Mild left maxillary sinus fluid. Radiologist: David Hancock MD CT HEAD: Comparison 11/05/17 No acute intracranial hemorrhage or mass effect. No visualized calvarial injury. Chronic right nasal bone deformity. Left frontal/periorbital scalp injury with laceration. No evidence for underlying orbital or globe injury. Radiologist: David Hancock MD CT C SPINE: Comparison 11/04/17 No fracture or traumatic malalignment. Stable chronic changes. Apical lung scarring. Radiologist: David Hancock MD It appears the patient has a head injury with facial laceration. Patient is nonverbal and MR's imaging was ordered. This is unremarkable. Patient is not on blood thinners. Staff is counseled on head injury signs and symptoms and on laceration care. They are advised to follow-up with family care in a few days or here in the ER sooner for fevers, vomiting, lethargy, abnormal behavior, worsening signs or symptoms or as needed. No other injuries are noted. Patient is well-appearing. Patient was discharged home in the care of her caregivers back to the skilled facility.By the evaluation outlined above emergent etiologies such as fracture, subdural hematoma, epidural hematoma, intraparenchymal hemorrhage, as well as others were deemed relatively unlikely. The caregiver informed about the findings as listed above. All questions were answered and pleased with the treatment. Return instructions were outlined and the patient/caregiver was discharged in stable condition. Referral: The patient was referred back to their primary care physician for follow-up in 2 to 3 days for a recheck of the current condition. Case reviewed with my attending The chart was completed utilizing [employer] Speech voice recognition software. Grammatical errors, random word insertions, pronoun errors, and incomplete sentences are an occassional consequence of this system due to software limitations, ambient noise, and hardware issues. Any formal questions or concerns about the content, text, or information contained within the body of this dictation should be directly addressed to the physician chemistry research assistant for clarification. Medical Decision As above Head Trauma GCS Score: 15 Medication Reconcilliation Current Medication List: was personally reviewed by me Blood Pressure Screening Patient's blood pressure: Normal blood pressure Impression Primary Impression: Head injury Additional Impressions: Fall Facial laceration Departure Information Dispostion Home / Self-Care Condition GOOD Referrals Dmitry Romero III, M.D. (PCP) Patient Instructions My [facility] Additional Instructions Keep wound clean and dry. Do not allow any crusting or dried blood to accumulate on sutures. If this occurs, use a 1:1 solution of hydrogen peroxide/ water on a Q-tip to clean the wound. Use an antibiotic ointment for 3-4 days, then let wound dry. Suture removal in 5-7 days. Return sooner for any signs of infection (increasing redness, swelling, drainage). Ice and elevate for swelling and pain. Keep covered when in sun until sutures removed then SPF 50 or higher for one year. Vitamin E oil if desired two weeks after suture removal for reduction of scar Head injury: Read head injury handout and return for any symptoms. Tylenol 1000 mg as needed for pain (Maximum 3000 mg Tylenol in 24 hr period). Avoid alcohol and contact sports/activities for one week and follow up with family doctor prior to returning to these activities if still symptomatic. Ice and elevate head. If your symptoms persist more than a week then follow up with the concussion clinic. Call [phone]. Return to ER sooner for headache, fevers, confusion, worsening signs or symptoms or as needed. Problem Qualifiers Primary Impression: Head injury Encounter type: initial encounter Qualified Codes: S09.90XA - Unspecified injury of head, initial encounter
[2017-12-18 06:12] VITALS: BP 116/88; PULSE 80; O2SAT 97
--- NOTE | 2017-12-18 06:44 | DIAGNOSTIC IMAGING REPORT ---
HEAD WITHOUT CONTRAST (CT) CT DOSE: HISTORY: Mental status change fall, head injury, MR, nonverbal TECHNIQUE: Multiaxial CT images of the head were performed without the use of intravenous contrast. A dose lowering technique was utilized adhering to the principles of ALARA. Comparison: 11/05/2017 Findings: Old fracture nasal bones. Major sinuses are clear. The calvarium and skull base are intact. The ventricles and sulci are within normal limits. There is no mass, hematoma, midline shift, or acute infarct. Impression: Old fracture nasal bones. No acute intracranial abnormality. The above report was generated using voice recognition software. It may contain grammatical, syntax or spelling errors. Electronically signed by: Som Rivera M.D. 12/18/2017 6:42 AM Dictated Date/Time: 12/18/2017 6:40 AM
--- NOTE | 2017-12-18 06:52 | DIAGNOSTIC IMAGING REPORT ---
CERVICAL SPINE W/O CT DOSE: 1082.99 mGy.cm CLINICAL HISTORY: 52 years-old Female with fall, MR, nonverbal. Acute neck injury status post fall COMPARISON: CT cervical spine 11/04/2017 TECHNIQUE: Multiple axial CT images of the cervical spine were obtained without contrast. A dose lowering technique was utilized adhering to the principles of ALARA. FINDINGS: There is no acute cervical spine fracture or subluxation. 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 Bones appear mildly demineralized. At least mild intervertebral disc space narrowing at C4-C5 and C5-C6 with moderate intervertebral disc space narrowing at C6-C7. Prominent multilevel endplate spurring is noted with minimal multilevel facet arthrosis. No definite high-grade central canal narrowing. No definite high-grade foraminal stenosis. Biapical pleural-parenchymal scarring of the lungs with 4 mm nodular opacity of the left lung apex noted. Soft tissues are unremarkable. IMPRESSION: 1. Degenerative changes of the cervical spine as above without acute fracture or subluxation. 2. Biapical pleural-parenchymal scarring with 4 mm solid nodule of the left lung apex. The above report was generated using voice recognition software. It may contain grammatical, syntax or spelling errors. Electronically signed by: Bobby Khan M.D. 12/18/2017 6:51 AM Dictated Date/Time: 12/18/2017 6:47 AM
--- NOTE | 2017-12-18 07:03 | DIAGNOSTIC IMAGING REPORT ---
FACIAL BONES-MXILLOFAC WITHOUT CT DOSE: HISTORY: Trauma mental status change TECHNIQUE: Multiaxial CT images of the maxillofacial region were performed and reformatted in the coronal plane without the use of contrast. A dose lowering technique was utilized adhering to the principles of ALARA. COMPARISON: 11/04/2017 FINDINGS: Nasal bones demonstrate an old fracture. Mild deformity is present. Mild mandibular deformity also considered old. Trace amount of fluid within the left maxillary sinus. This most likely is reactive. Margins are intact. Orbital floor show no evidence for disruption. IMPRESSION: No acute process. Findings suggestive of old trauma as discussed above. The above report was generated using voice recognition software. It may contain grammatical, syntax or spelling errors. Electronically signed by: Som Rivera M.D. 12/18/2017 7:02 AM Dictated Date/Time: 12/18/2017 7:00 AM
== END 2017-12-18 06:12 ==
LOC: EDUNIT# 04:48 → C.EDA 04:51
DX: S01.112A Laceration without foreign body of left eyelid and periocular area, initial encounter (principal); W19.XXXA Unspecified fall, initial encounter; Y92.192 Bathroom in other specified residential institution as the place of occurrence of the external cause; Z91.81 History of falling; E23.2 Diabetes insipidus; Z90.710 Acquired absence of both cervix and uterus; F79 Unspecified intellectual disabilities; Z79.899 Other long term (current) drug therapy

== ENCOUNTER 2019-07-04 19:17 | Inpatient (IN) ==
[2019-07-04 20:22] LABS: Basophils # (auto) 0.01 K/uL (0-0.2); Basophils % (auto) 0.1 %; Eosinophils # (auto) 0.11 K/uL (0-0.5); Eosinophils % (auto) 0.9 %; Hematocrit (blood only) 42.4 % (37-47); Hemoglobin 14.1 g/dL (12.0-16.0); Immature Granulocytes # (auto) 0.02 K/uL (0.00-0.02); Immature Granulocytes % (auto) 0.2 %; Lymphocytes # (auto) 1.26 K/uL (1.2-3.4); Lymphocytes % (auto) 10.1 %; Mean Corpuscular Hemoglobin 30.9 pg (25-34); Mean Corpuscular Hgb Conc 33.3 g/dL (32-36); Mean Platelet Volume 9.9 fL (7.4-10.4); Monocytes # (auto) 0.72 K/uL (0.11-0.59); Monocytes % (auto) 5.8 %; Neutrophils # (auto) 10.33 K/uL (1.4-6.5); Neutrophils % (auto) 82.9 %; Platelet Count 466 K/uL (130-400); RDW Coefficient of Variation 15.7 % (11.5-14.5); RDW Standard Deviation 52.9 fL (36.4-46.3); Red Blood Count 4.56 M/uL (4.2-5.4); White Blood Count 12.45 K/uL (4.8-10.8)
[2019-07-04 20:33] LABS: INR 1.1 (0.9-1.1); Partial Thromboplastin Time 27.9 Seconds (21.0-31.0); Prothrombin Time 11.2 Seconds (9.0-12.0)
[2019-07-04 20:35] LABS: iSTAT Hemoglobin 14.6 g/dl (12.0-16.0); iSTAT Ionized Calcium 1.15 mmol/l (1.12-1.32); iSTAT Potassium 3.7 mEq/L (3.3-5.0)
[2019-07-04 20:41] LABS: Alanine Aminotransferase 16 U/L (12-78); Albumin Level 3.7 gm/dl (3.4-5.0); Aspartate Aminotransferase 14 U/L (15-37); BUN Creatinine Ratio 21.2 (10-20); Blood Urea Nitrogen 22 mg/dl (7-18); Calcium 9.6 mg/dl (8.5-10.1); Carbon Dioxide 30 mmol/L (21-32); Chloride 105 mmol/L (98-107); Creatinine Clr Calc Pharmacy 56.5 ml/min; Est GFR (African American) 69.7; Est GFR (Non-African American) 60.2; Glucose 118 mg/dl (70-99); Magnesium 2.1 mg/dl (1.8-2.4); Potassium 3.8 mmol/L (3.5-5.1); Sodium 140 mmol/L (136-145)
--- NOTE | 2019-07-04 20:41 | XRay Report ---
SINGLE VIEW CHEST CLINICAL HISTORY: Aspiration. FINDINGS: An AP, portable, upright chest radiograph is compared to study dated 03/03/2019. The examina tion is degraded by portable technique and patient rotation. The patient's head partially obscures th e right apex. The heart is top normal for projection. The pulmonary vasculature is noncongested. Manager Medical Device antony interstitial thickening is similar to previous. There is mild bibasilar atelectasis. The lungs an d pleural spaces are otherwise clear. No pneumothorax is seen. The skeletal structures are osteopenic . Chronic posttraumatic deformity is noted in the right clavicle. IMPRESSION: No acute cardiopulmonary abnormality. Electronically signed by: Fernando Howell M.D. 07/04/2019 8:40 PM
[2019-07-04 20:46] LABS: Alkaline Phosphatase 109 U/L (45-117); Bilirubin,Total 0.4 mg/dl (0.2-1); Globulin 3.6 gm/dl (2.5-4.0); Total Protein 7.3 gm/dl (6.4-8.2); Troponin I < 0.015 ng/ml (0-0.045)
[2019-07-04] MEDS ORDERED: OPTIRAY 320 125ml IV PRN (20:58)
--- NOTE | 2019-07-04 21:29 | CT Scan Report ---
UNENHANCED CT OF THE BRAIN; CT ANGIOGRAM OF THE BRAIN; CT ANGIOGRAM OF THE NECK CLINICAL HISTORY: Difficulty walking. Dysphagia. COMPARISON STUDY: CT of the brain dated 03/03/2019. CT of the neck dated 02/14/2013. CT of the facial b ones dated 03/03/2019. TECHNIQUE: Unenhanced axial CT scan of the brain is performed. Subsequently, following the IV adminis tration of 119 of [address], CT angiogram of the head and neck was performed from the aortic arch t o the vertex. Images are reviewed in the axial, sagittal, and coronal planes. 3-D MIPS images are cre ated and assessed. IV contrast was administered without complication. All measurements were calculate d based on NASCET criteria. A dose lowering technique was utilized adhering to the principles of ALA RA. CT DOSE: 1453.61 mGy.cm FINDINGS: Brain parenchyma: There is minimal microangiopathic change. There is no hemorrhage, mass effect, or e vidence of acute territorial ischemia by CT criteria. There is no evidence of enhancing mass lesion o n the angiogram phase images. The ventricles, sulci, and cisterns are normal in configuration. Wilkinson-w cheryl matter differentiation is preserved. No extra-axial fluid collection is seen. Thoracic aorta: There is mild ectasia of the visualized descending thoracic aorta which measures up t o 3.6 cm in diameter. The remaining imaged portions of the thoracic aorta are normal in caliber. The aortic arch demonstrates bovine variant anatomy. Right carotid arterial system: The right common carotid artery is widely patent, as are the right int ernal and external carotid arteries. Left carotid arterial system: The left common carotid artery is widely patent, as are the left internet application developer al and external carotid arteries. Vertebral arteries: The vertebral arteries are widely patent bilaterally and codominant. Subclavian arteries: Widely patent bilaterally. Intracranial vasculature: There is mild atherosclerotic calcification of the cavernous carotid arteri es. There is origin of the left posterior cerebral artery. There is a large right posterior com municating artery. The internal carotid arteries are patent at the skull base, as are the anterior an d middle cerebral arteries bilaterally. The vertebrobasilar system and posterior cerebral arteries ar e widely patent. The vertebral arteries are codominant. There is no aneurysm, high-grade stenosis, or focal vessel cut off seen throughout the intracranial circulation. Jugular veins: Widely patent bilaterally. Dural sinuses: Patent. Lung apices: Partially visualized upper lobe lung parenchyma appears clear. Soft tissues: The visualized pharyngeal soft tissues are normal in appearance noting angiographic pha se technique. The oropharyngeal airway appears widely patent. The thyroid gland is atrophic and heter ogeneous. The salivary glands are normal in appearance. No cervical lymphadenopathy is seen. Circumfe rential esophageal wall thickening is suggested. Orbits: The bony orbits are intact. Orbital contents are normal in appearance. Skeletal structures: The skeletal structures are osteopenic. The calvarium appears intact. The cervic al spine is maintained noting multilevel spondylosis. No lytic or blastic lesion is seen. There is a tiny avulsion fracture identified along the inner aspect of the left mandibular body. This is best se en on image #218 of the neck angiogram series. Sinuses and mastoids: The paranasal sinuses are clear. The mastoid air cells are well pneumatized. IMPRESSION: 1. There is no hemorrhage, mass effect, or evidence of acute territorial ischemia by CT criteria. 2. Unremarkable CT angiogram of the brain. 3. Unremarkable CT angiogram of the neck. 4. There is ectasia of the visualized ascending thoracic aorta which measures up to 3.6 cm in diamete r. This is similar to the 2013 examination. 5. Question circumferential wall thickening of the visualized esophagus. Correlate clinically for candice dence of esophagitis. 6. There is a small avulsion fracture identified along the medial cortex of the left mandibular body, new from 03/03/2019. If there have been interval dental extractions this could be on a postoperative basis. Clinical correlation will be essential. Electronically signed by: Fernando Howell M.D. 07/04/2019 9:27 PM
[2019-07-04] MEDS ORDERED: ERTAPENEM SODIUM 10 ML IV STA (22:25)
[2019-07-04] MEDS ORDERED: LACTATED RINGER'S 1,000 ML IV ONE (22:50)
--- NOTE | 2019-07-04 22:51 | History & Physical Report ---
Date of Service July 04, 2019 Assessment & Plan (1) Sepsis: Secondary to possible aspiration pneumonitis Known aspiration risk, history of esophageal dysfunction as per records intellectual impairment/autism hypertension, stable hypothyroidism, euthyroid as of recent outpatient TSH hx of parkinsonism as per records, patient slower/off balance than usual as per caregiver attributed to psychiatric medications as per outpatient Neurology eval Stroke work-up at the ER was negative. Incidental finding of small avulsion fracture, left mandibular body (likely secondary to recent outpatient dental procedure) Hyperglycemia rule out DM Medical telemetry Cultures, check lactic acid Ertapenem 1 dose (Unasyn on back order as per pharmacy) Augmentin course Aspiration precautions Repeat swallow eval Check hemoglobin A1c DVT prophylaxis with Lovenox subcu Full code as per sister/POA, Ms. Alicia Sal. She requests updates from providers thru [phone]. History of Present Illness Chief Complaint: Cough, trouble swallowing as per records Primary Care Provider: Dmitry Romero MD History obtained from family, and records. Unable to obtain history from patient secondary to nonverbal state. Medical history significant for intellectual impairment, autism, hypertension, hypothyroidism, hx of parkinsonism as per records, known aspiration risk, history Lyme disease status post Rx. Caregivers noted patient having more trouble swallowing at home today. Patient coughing, and gagging, working harder to swallow. Patient noted to be more off balance at home. No fever, no chills. Patient brought to the ER for evaluation. Medical History as above Surgical History : Dental surgery, appendectomy Family History : Could not be obtained Personal/Social history : Non-smoker, no EtOH intake, disabled, halfway resident Allergies Allergy/AdvReac Type Severity Reaction Status Date / Time benztropine Allergy Mild Unknown Verified 07/04/19 20:43 pseudoephedrine Allergy Mild Unknown Verified 07/04/19 20:43 Home Medications Home Medications Medication Instructions Recorded Confirmed Type Natural Vegetable Powder 1 dose PO DAILY 09/13/18 07/04/19 History alendronate [Fosamax] 70 mg PO WK 09/13/18 07/04/19 History amantadine HCl 100 mg PO DAILY 09/13/18 07/04/19 History buspirone 10 mg PO TID 09/13/18 07/04/19 History fluticasone propionate [Flonase 1 spray INTRANASAL BID 09/13/18 07/04/19 History Allergy Relief] levothyroxine [Synthroid] 150 mcg PO DAILY 09/13/18 07/04/19 History lisinopril [Zestril] 2.5 mg PO DAILY 09/13/18 07/04/19 History loratadine 10 mg PO DAILY 09/13/18 07/04/19 History melatonin 2 mg PO HS 09/13/18 07/04/19 History multivitamin 1 tab PO DAILY 09/13/18 07/04/19 History polyethylene glycol 3350 1 dose PO DAILY 09/13/18 07/04/19 History risperidone [Risperdal] 2 mg PO QPM 09/13/18 07/04/19 History sennosides-docusate sodium 1 tab PO BID 09/13/18 07/04/19 History [Senexon-S] sertraline [Zoloft] 25 mg PO DAILY 09/13/18 07/04/19 History simvastatin [Zocor] 20 mg PO QPM 09/13/18 07/04/19 History trazodone 400 mg PO HS 09/13/18 07/04/19 History Qc Natural Vegetable Powd 1 dose PO DAILY 03/03/19 07/04/19 History calcium carbonate-vitamin D3 2 tab PO QAM 03/03/19 07/04/19 History [Calcium 600 + D(3)] amoxicillin-pot clavulanate 1 tab PO BIDM 5 Days #10 tab 07/05/19 Rx Past Med/Surg History Medical History Concussion (Acute) Diabetes insipidus (Chronic 02/14/13) Mental retardation (Chronic 02/14/13) Multiple contusions (Acute) Surgical History No pertinent past surgical history Family History Other No pertinent family history Social History Preferred Language: Maori Communication Ability: Impaired Motion Picture Camera Lens Technician Required: No Beliefs That Will Affect Care: None Current Living Situation: Other Current Living Situation Comment: [facility] [phone] Feels Safe at Home: Yes Safety Concerns: Feels Safe At This Time Smoking Status: Never smoker Do You Dip or Chew Tobacco: No ; Second Hand Exposure: No ; Tobacco Cessation Education Requested by Patient: No Hx Alcohol Use: No Hx Substance Use: No Review of Systems Review of Systems: Could not be reliably obtained Physical Exam Physical Exam: GENERAL: uncomfortable, nonverbal, agitated, no respiratory distress SKIN: Normal color, warm HEENT: [place] palpebral conjunctivae, no ptosis, dry buccal mucosa NECK : Supple, no tenderness CHEST : Decreased effort , no tenderness HEART : RRR, no obvious murmurs ABDOMEN: Some distention, nontender EXTREMITIES : Minimal LE swelling, no LE tenderness, no other conspicuous deformities noted NEUROLOGIC : incoherent, nonverbal, no facial asymmetry, uncontrolled shaking of the upper extremities, gait and stance not assessed Results & Data Vital Signs (Past 12 Hours) Vital Signs Temp Pulse Pulse Resp BP BP Pulse Ox 07/04/19 22:17 96 H 20 124/97 94 07/04/19 21:07 86 21 123/80 93 07/04/19 19:24 36.8 C 115 H 20 121/72 96 Laboratory Results Laboratory Results WBC 12.45 K/uL (4.8-10.8) H 07/04/19 20:10 RBC 4.56 M/uL (4.2-5.4) 07/04/19 20:10 Hgb 14.1 g/dL (12.0-16.0) 07/04/19 20:10 POC Hgb 14.6 g/dl (12.0-16.0) 07/04/19 20:22 Hct 42.4 % (37-47) 07/04/19 20:10 POC Hct 43 % (37-47) 07/04/19 20:22 MCV 93.0 fL (80-100) 07/04/19 20:10 MCH 30.9 pg (25-34) 07/04/19 20:10 MCHC 33.3 g/dL (32-36) 07/04/19 20:10 RDW Std Deviation 52.9 fL (36.4-46.3) H 07/04/19 20:10 RDW Coeff of Ramona 15.7 % (11.5-14.5) H 07/04/19 20:10 Plt Count 466 K/uL (130-400) H 07/04/19 20:10 MPV 9.9 fL (7.4-10.4) 07/04/19 20:10 Immature Gran % (Auto) 0.2 % 07/04/19 20:10 Neut % (Auto) 82.9 % 07/04/19 20:10 Lymph % (Auto) 10.1 % 07/04/19 20:10 [place] % (Auto) 5.8 % 07/04/19 20:10 Eos % (Auto) 0.9 % 07/04/19 20:10 Baso % (Auto) 0.1 % 07/04/19 20:10 Immature Gran # (Auto) 0.02 K/uL (0.00-0.02) 07/04/19 20:10 Neut # (Auto) 10.33 K/uL (1.4-6.5) H 07/04/19 20:10 Lymph # (Auto) 1.26 K/uL (1.2-3.4) 07/04/19 20:10 [place] # (Auto) 0.72 K/uL (0.11-0.59) H 07/04/19 20:10 Eos # (Auto) 0.11 K/uL (0-0.5) 07/04/19 20:10 Baso # (Auto) 0.01 K/uL (0-0.2) 07/04/19 20:10 PT 11.2 Seconds (9.0-12.0) 07/04/19 20:10 INR 1.1 (0.9-1.1) 07/04/19 20:10 APTT 27.9 Seconds (21.0-31.0) 07/04/19 20:10 PTT Ratio 1.0 07/04/19 20:10 POC Sodium 140 mEq/L (135-144) 07/04/19 20:22 Sodium 140 mmol/L (136-145) 07/04/19 20:10 POC Potassium 3.7 mEq/L (3.3-5.0) 07/04/19 20:22 Potassium 3.8 mmol/L (3.5-5.1) 07/04/19 20:10 POC Chloride 101 mEq/L (101-112) 07/04/19 20:22 Chloride 105 mmol/L (98-107) 07/04/19 20:10 Carbon Dioxide 30 mmol/L (21-32) 07/04/19 20:10 POC Total CO2 28 mEq/l (24-31) 07/04/19 20:22 Anion Gap 5.0 (3-11) 07/04/19 20:10 POC Anion Gap 15.0 mmol/L (16-25) L 07/04/19 20:22 POC BUN 21 mg/dl (7-18) H 07/04/19 20:22 BUN 22 mg/dl (7-18) H 07/04/19 20:10 Creatinine 1.05 mg/dl (0.6-1.2) 07/04/19 20:10 POC Creatinine 1.0 mg/dl (0.6-1.3) 07/04/19 20:22 Est Cr Clr Drug Dosing 56.5 ml/min 07/04/19 20:10 Est GFR ( Amer) 69.7 07/04/19 20:10 Est GFR (Non-Af Amer) 60.2 07/04/19 20:10 BUN/Creatinine Ratio 21.2 (10-20) H 07/04/19 20:10 Glucose 118 mg/dl (70-99) H 07/04/19 20:10 POC Glucose (other) 122 mg/dl (70-99) H 07/04/19 20:22 Calcium 9.6 mg/dl (8.5-10.1) 07/04/19 20:10 POC Ioniz Calcium Kera 1.15 mmol/l (1.12-1.32) 07/04/19 20:22 Magnesium 2.1 mg/dl (1.8-2.4) 07/04/19 20:10 Total Bilirubin 0.4 mg/dl (0.2-1) 07/04/19 20:10 AST 14 U/L (15-37) L 07/04/19 20:10 ALT 16 U/L (12-78) 07/04/19 20:10 Alkaline Phosphatase 109 U/L (45-117) 07/04/19 20:10 Troponin I < 0.015 ng/ml (0-0.045) 07/04/19 20:10 Total Protein 7.3 gm/dl (6.4-8.2) 07/04/19 20:10 Albumin 3.7 gm/dl (3.4-5.0) 07/04/19 20:10 Globulin 3.6 gm/dl (2.5-4.0) 07/04/19 20:10 Albumin/Globulin Ratio 1.0 (0.9-2) 07/04/19 20:10 Diagnostic Findings Chest x-ray : No acute cardiopulmonary abnormality. EKG as per my interpretation : Rate 105, sinus tachycardia, indeterminate axis, RVH, inferior infarct, T wave flattening inferior leads CTA head and neck: 1. There is no hemorrhage, mass effect, or evidence of acute territorial ischemia by CT criteria. 2. Unremarkable CT angiogram of the brain. 3. Unremarkable CT angiogram of the neck. 4. There is ectasia of the visualized ascending thoracic aorta which measures up to 3.6 cm in diameter. This is similar to the 2013 examination. 5. Question circumferential wall thickening of the visualized esophagus. Correlate clinically for evidence of esophagitis. 6. There is a small avulsion fracture identified along the medial cortex of the left mandibular body, new from 03/03/2019. If there have been interval dental extractions this could be on a postoperative basis. Clinical correlation will be essential.
--- NOTE | 2019-07-04 22:53 | Emergency Department Note ---
Entered by Juan Wan acting as a scribe for History of Present Illness General Source: other (caregiver) Limitations: other (Non-verbal) History of Present Illness Onset (ago): day(s) (today) Location: mouth (and throat) Pain Consistency: + intermittent Quality: + other (gagging) Exacerbated By: + eating Associated symptoms: + denies other symptoms (cold symptoms); no fever/chills (fever) and no nausea/vomiting (vomiting) The patient is a 54 year old female who presents to the Emergency Room with complaints intermittent trouble swallowing starting today at breakfast. The patient's caregiver states the patient has MR and autism. The caregiver states the patient has been having trouble swallowing all her meals today. The caregiver states the patient usually takes about 15 minutes to eat a meal but notes the patient was taking about an hour today. The caregiver states the patient ate normally yesterday. The caregiver states the patient was gagging when eating her food and she had to work harder to swallow. The caregiver states the patient was having trouble swallowing liquids and solids. The caregiver states the patient was coughing from gagging but has not had any cold symptoms. She states the patient was able to eventually eat her food. The caregiver states the patient usually walks off balance but states the patient has been more off b alance today. The caregiver notes the patient is usually able to walk around the house, but states today the patient is having trouble walking around the house. The caregiver states the patient cannot indicate if she is in pain. The caregiver states the patient got her evening medications today. The caregiver denies the patient having a fever, vomiting, and cold symptoms. The caregiver states the patient does not have heart disease, diabetes, or a stroke history. HPI is limited secondary to patient being non-verbal. Home Medications Home Medications Medication Instructions Recorded Confirmed Type alendronate [Fosamax] 70 mg PO WK 09/13/18 07/04/19 History amantadine HCl 100 mg PO DAILY 09/13/18 07/04/19 History buspirone 10 mg PO TID 09/13/18 07/04/19 History fluticasone propionate [Flonase 1 spray INTRANASAL BID 09/13/18 07/04/19 History Allergy Relief] levothyroxine [Synthroid] 150 mcg PO DAILY 09/13/18 07/04/19 History lisinopril [Zestril] 2.5 mg PO DAILY 09/13/18 07/04/19 History loratadine 10 mg PO DAILY 09/13/18 07/04/19 History melatonin 2 mg PO HS 09/13/18 07/04/19 History multivitamin 1 tab PO DAILY 09/13/18 07/04/19 History polyethylene glycol 3350 [Gavilax] 1 dose PO DAILY 09/13/18 07/04/19 History psyllium husk (with sugar) 1 dose PO DAILY 09/13/18 07/04/19 History [Natural Vegetable Powder] risperidone [Risperdal] 2 mg PO QPM 09/13/18 07/04/19 History sennosides-docusate sodium 1 tab PO BID 09/13/18 07/04/19 History [Senexon-S] sertraline [Zoloft] 25 mg PO DAILY 09/13/18 07/04/19 History simvastatin [Zocor] 20 mg PO QPM 09/13/18 07/04/19 History trazodone 400 mg PO HS 09/13/18 07/04/19 History Qc Natural Vegetable Powd 1 dose PO DAILY 03/03/19 07/04/19 History calcium carbonate-vitamin D3 2 tab PO QAM 03/03/19 07/04/19 History [Calcium 600 + D(3)] Allergies Allergy/AdvReac Type Severity Reaction Status Date / Time benztropine Allergy Mild Unknown Verified 07/04/19 20:43 pseudoephedrine Allergy Mild Unknown Verified 07/04/19 20:43 Past Med/Surg History Medical History Concussion (Acute) Diabetes insipidus (Chronic 02/14/13) Mental retardation (Chronic 02/14/13) Multiple contusions (Acute) Surgical History No pertinent past surgical history Family History Other No pertinent family history Social History Preferred Language: Luxembourgish Communication Ability: Unable Pharmaceutical Salesperson Required: No Beliefs That Will Affect Care: None Current Living Situation: Other Current Living Situation Comment: [facility]- [phone] Feels Safe at Home: Yes Safety Concerns: Feels Safe At This Time Smoking Status: Never smoker Do You Dip or Chew Tobacco: No ; Second Hand Expos ure: No ; Tobacco Cessation Education Requested by Patient: No Hx Alcohol Use: No Hx Substance Use: No Review of Systems Other (Unobtainable due to patient being non-verbal) Physical Exam Vital Signs Vital Signs - 24 hr 07/04/19 19:24 07/04/19 21:07 07/04/19 22:17 Temperature 36.8 C Temperature Source Oral Pulse Rate 115 H Pulse Rate [Finger] 86 96 H Respiratory Rate 20 21 20 Respiratory Effort / Characteristics Non-Labored Spontaneous Respiratory Depth Normal Normal Blood Pressure 121/72 Blood Pressure [Right Arm] 123/80 124/97 Blood Pressure Mean 88 Blood Pressure Mean [Right Arm] 94 106 Blood Pressure Position Sitting Pulse Oximetry 96 93 94 Oxygen Delivery Method Room Air Room Air Room Air Sepsis Recent Fever Within 48 Hours No Sepsis Action Taken by Nursing No Action Required Constitutional: Vital signs reviewed. PE is limited because patient is unable to follow commands. Eyes: Pupils are equal round reactive to light. Conjunctiva are noninjected. ENT: Pharynx is clear without erythema or exudate. Mucous membranes are moist. Neck supple without meningeal signs. Respiratory: Clear to auscultation bilaterally. Breath sounds are equal bilaterally. Cardiovascular: Regular rate and rhythm. No rubs or gallops. GI: Soft, nondistended and nontender. Bowel sounds are present. Musculoskeletal: No peripheral edema. No lower extremity tenderness. Integumentary: No cyanosis. Neurological: The patient is awake and alert. Does not follow commands. Moves arms. Ataxic. Psychiatric: Unable to assess Course Course 1935: The patient was evaluated in room A3, and a complete history and physical examination were performed. 2024: I reevaluated the patient. She is going to CAT scan. 2114: I spoke with radiology. They state the patient has a left mandibular cortex fracture. 2137: I reevaluated the patient. I discussed the test results with the patient's caregiver. The caregiver states the patient had a tooth extraction 2 months ago and did not have any trouble chewing after that. I had the patient try to drink liquids and the patient had difficulty swallowing. 2200: I discussed the patient's case with Dr. Marni Tejeda Hospitalist. He will evaluate the patient for further management Administered Medications Lactated Ringer's (Lr) 1,000 mls @ 80 mls/hr IV .[id number] ONE Stop: 07/05/19 14:59 Last Admin: 07/05/19 03:11 Dose: 80 mls/hr Documented by: [id number] Olanzapine (Zyprexa) 2.5 mg IM Q4H PRN PRN Reason: Anxiety/Agitation Stop: 08/03/19 23:56 Last Admin: 07/05/19 04:09 Dose: 2.5 mg Documented by: [id number] Risperidone (Risperdal) 2 mg PO QPM SOPHIA Stop: 08/03/19 23:56 Last Admin: 07/05/19 00:55 Dose: 2 mg Documented by: [id number] Discontinued Medications Ertapenem (Invanz) 10 mls @ 2 mls/min IV NOW STA Stop: 07/04/19 22:29 Last Admin: 07/04/19 23:25 Dose: 2 mls/min Documented by: [id number] Lactated Ringer's (Lr) 1,000 mls @ 500 mls/hr IV .Q2H ONE Stop: 07/05/19 00:49 Last Infusion: 07/05/19 03:11 Dose: 0 mls/hr Documented by: [id number] Admin: 07/05/19 00:55 Dose: 500 mls/hr Documented by: [id number] Ioversol (Optiray 320 125ml) 119 ml IV ONCE PRN PRN Reason: Interaction Checking Stop: 07/08/19 20:57 Last Admin: 07/04/19 20:59 Dose: 119 ml Documented by: [id number] Medical Decision Making Differential Diagnosis Differential Diagnosis includes but is not limited to dysphagia, aspiration, CVA, metabolic derangement, anemia, and infection. Medical Records Attestation: I reviewed the patient's medical records. Patient was seen in the ED in February for a fall. Home Medications Current Medication List: was personally reviewed by me Laboratory Data Attestation: I reviewed the patient's lab results. Result diagrams: 07/04/19 20:10 07/04/19 20:10 Lab Results 07/04/19 07/04/19 07/04/19 Range/Units 20:10 20:10 20:10 WBC 12.45 H (4.8-10.8) K/uL RBC 4.56 (4.2-5.4) M/uL Hgb 14.1 (12.0-16.0) g/dL POC Hgb (12.0-16.0) g/dl Hct 42.4 (37-47) % POC Hct (37-47) % MCV 93.0 (80-100) fL MCH 30.9 (25-34) pg MCHC 33.3 (32-36) g/dL RDW Std Deviation 52.9 H (36.4-46.3) fL RDW Coeff of Ramona 15.7 H (11.5-14.5) % Plt Count 466 H (130-400) K/uL MPV 9.9 (7.4-10.4) fL Immature Gran % (Auto) 0.2 % Neut % (Auto) 82.9 % Lymph % (Auto) 10.1 % Finney % (Auto) 5.8 % Eos % (Auto) 0.9 % Baso % (Auto) 0.1 % Immature Gran # (Auto) 0.02 (0.00-0.02) K/uL Neut # (Auto) 10.33 H (1.4-6.5) K/uL Lymph # (Auto) 1.26 (1.2-3.4) K/uL Finney # (Auto) 0.72 H (0.11-0.59) K/uL Eos # (Auto) 0.11 (0-0.5) K/uL Baso # (Auto) 0.01 (0-0.2) K/uL PT 11.2 (9.0-12.0) Seconds INR 1.1 (0.9-1.1) APTT 27.9 (21.0-31.0) Seconds PTT Ratio 1.0 POC Sodium (135-144) mEq/L Sodium 140 (136-145) mmol/L POC Potassium (3.3-5.0) mEq/L Potassium 3.8 (3.5-5.1) mmol/L POC Chloride (101-112) mEq/L Chloride 105 (98-107) mmol/L Carbon Dioxide 30 (21-32) mmol/L POC Total CO2 (24-31) mEq/l Anion Gap 5.0 (3-11) POC Anion Gap (16-25) mmol/L POC BUN (7-18) mg/dl BUN 22 H (7-18) mg/dl Creatinine 1.05 (0.6-1.2) mg/dl POC Creatinine (0.6-1.3) mg/dl Est Cr Clr Drug Dosing 56.5 ml/min Est GFR ( Amer) 69.7 Est GFR (Non-Af Amer) 60.2 BUN/Creatinine Ratio 21.2 H (10-20) Glucose 118 H (70-99) mg/dl POC Glucose (other) (70-99) mg/dl Calcium 9.6 (8.5-10.1) mg/dl POC Ioniz Calcium Kera (1.12-1.32) mmol/l Magnesium 2.1 (1.8-2.4) mg/dl Total Bilirubin 0.4 (0.2-1) mg/dl AST 14 L (15-37) U/L ALT 16 (12-78) U/L Alkaline Phosphatase 109 (45-117) U/L Troponin I < 0.015 (0-0.045) ng/ml Total Protein 7.3 (6.4-8.2) gm/dl Albumin 3.7 (3.4-5.0) gm/dl Globulin 3.6 (2.5-4.0) gm/dl Albumin/Globulin Ratio 1.0 (0.9-2) 07/04/19 Range/Units 20:22 WBC (4.8-10.8) K/uL RBC (4.2-5.4) M/uL Hgb (12.0-16.0) g/dL POC Hgb 14.6 (12.0-16.0) g/dl Hct (37-47) % POC Hct 43 (37-47) % MCV (80-100) fL MCH (25-34) pg MCHC (32-36) g/dL RDW Std Deviation (36.4-46.3) fL RDW Coeff of Ramona (11.5-14.5) % Plt Count (130-400) K/uL MPV (7.4-10.4) fL Immature Gran % (Auto) % Neut % (Auto) % Lymph % (Auto) % Finney % (Auto) % Eos % (Auto) % Baso % (Auto) % Immature Gran # (Auto) (0.00-0.02) K/uL Neut # (Auto) (1.4-6.5) K/uL Lymph # (Auto) (1.2-3.4) K/uL Finney # (Auto) (0.11-0.59) K/uL Eos # (Auto) (0-0.5) K/uL Baso # (Auto) (0-0.2) K/uL PT (9.0-12.0) Seconds INR (0.9-1.1) APTT (21.0-31.0) Seconds PTT Ratio POC Sodium 140 (135-144) mEq/L Sodium (136-145) mmol/L POC Potassium 3.7 (3.3-5.0) mEq/L Potassium (3.5-5.1) mmol/L POC Chloride 101 (101-112) mEq/L Chloride (98-107) mmol/L Carbon Dioxide (21-32) mmol/L POC Total CO2 28 (24-31) mEq/l Anion Gap (3-11) POC Anion Gap 15.0 L (16-25) mmol/L POC BUN 21 H (7-18) mg/dl BUN (7-18) mg/dl Creatinine (0.6-1.2) mg/dl POC Creatinine 1.0 (0.6-1.3) mg/dl Est Cr Clr Drug Dosing ml/min Est GFR ( Amer) Est GFR (Non-Af Amer) BUN/Creatinine Ratio (10-20) Glucose (70-99) mg/dl POC Glucose (other) 122 H (70-99) mg/dl Calcium (8.5-10.1) mg/dl POC Ioniz Calcium Kera 1.15 (1.12-1.32) mmol/l Magnesium (1.8-2.4) mg/dl Total Bilirubin (0.2-1) mg/dl AST (15-37) U/L ALT (12-78) U/L Alkaline Phosphatase (45-117) U/L Troponin I (0-0.045) ng/ml Total Protein (6.4-8.2) gm/dl Albumin (3.4-5.0) gm/dl Globulin (2.5-4.0) gm/dl Albumin/Globulin Ratio (0.9-2) Imaging Data Radiologist's Impression: Radiology results as stated below per my review and the radiologist's interpretation: UNENHANCED CT OF THE BRAIN; CT ANGIOGRAM OF THE BRAIN; CT ANGIOGRAM OF THE NECK CLINICAL HISTORY: Difficulty walking. Dysphagia. COMPARISON STUDY: CT of the brain dated 03/03/2019. CT of the neck dated 02/14/2013. CT of the facial bones dated 03/03/2019. TECHNIQUE: Unenhanced axial CT scan of the brain is performed. Subsequently, following the IV administration of 119 of Optiray 320, CT angiogram of the head and neck was performed from the aortic arch to the vertex. Images are reviewed in the axial, sagittal, and coronal planes. 3-D MIPS images are created and assessed. IV contrast was administered without complication. All measurements were calculated based on NASCET criteria. A dose lowering technique was utilized adhering to the principles of ALARA. CT DOSE: 1453.61 mGy.cm FINDINGS: Brain parenchyma: There is minimal microangiopathic change. There is no hemorrhage, mass effect, or evidence of acute territorial ischemia by CT criteria. There is no evidence of enhancing mass lesion on the angiogram phase images. The ventricles, sulci, and cisterns are normal in configuration. Wilkinson- white matter differentiation is preserved. No extra-axial fluid collection is seen. Thoracic aorta: There is mild ectasia of the visualized descending thoracic aorta which measures up to 3.6 cm in diameter. The remaining imaged portions of the thoracic aorta are normal in caliber. The aortic arch demonstrates bovine variant anatomy. Right carotid arterial system: The right common carotid artery is widely patent, as are the right internal and external carotid arteries. Left carotid arterial system: The left common carotid artery is widely patent, as are the left internal and external carotid arteries. Vertebral arteries: The vertebral arteries are widely patent bilaterally and codominant. Subclavian arteries: Widely patent bilaterally. Intracranial vasculature: There is mild atherosclerotic calcification of the cavernous carotid arteries. There is origin of the left posterior cerebral artery. There is a large right posterior communicating artery. The internal carotid arteries are patent at the skull base, as are the anterior and middle cerebral arteries bilaterally. The vertebrobasilar system and posterior cerebral arteries are widely patent. The vertebral arteries are codominant. There is no aneurysm, high-grade stenosis, or focal vessel cut off seen throughout the intracranial circulation. Jugular veins: Widely patent bilaterally. Dural sinuses: Patent. Lung apices: Partially visualized upper lobe lung parenchyma appears clear. Soft tissues: The visualized pharyngeal soft tissues are normal in appearance noting angiographic phase technique. The oropharyngeal airway appears widely patent. The thyroid gland is atrophic and heterogeneous. The salivary glands are normal in appearance. No cervical lymphadenopathy is seen. Circumferential esophageal wall thickening is suggested. Orbits: The bony orbits are intact. Orbital contents are normal in appearance. Skeletal structures: The skeletal structures are osteopenic. The calvarium appears intact. The cervical spine is maintained noting multilevel spondylosis. No lytic or blastic lesion is seen. There is a tiny avulsion fracture identified along the inner aspect of the left mandibular body. This is best seen on image #218 of the neck angiogram series. Sinuses and mastoids: The paranasal sinuses are clear. The mastoid air cells are well pneumatized. IMPRESSION: 1. There is no hemorrhage, mass effect, or evidence of acute territorial ischemia by CT criteria. 2. Unremarkable CT angiogram of the brain. 3. Unremarkable CT angiogram of the neck. 4. There is ectasia of the visualized ascending thoracic aorta which measures up to 3.6 cm in diameter. This is similar to the 2013 examination. 5. Question circumferential wall thickening of the visualized esophagus. Correlate clinically for evidence of esophagitis. 6. There is a small avulsion fracture identified along the medial cortex of the left mandibular body, new from 03/03/2019. If there have been interval dental extractions this could be on a postoperative basis. Clinical correlation will be essential. Electronically signed by: Fernando Howell M.D. 07/04/2019 9:27 PM SINGLE VIEW CHEST CLINICAL HISTORY: Aspiration. FINDINGS: An AP, portable, upright chest radiograph is compared to study dated 03/03/2019. The examination is degraded by portable technique and patient rotation. The patient's head partially obscures the right apex. The heart is top normal for projection. The pulmonary vasculature is noncongested. Chronic interstitial thickening is similar to previous. There is mild bibasilar atelectasis. The lungs and pleural spaces are otherwise clear. No pneumothorax is seen. The skeletal structures are osteopenic. Chronic posttraumatic deformity is noted in the right clavicle. IMPRESSION: No acute cardiopulmonary abnormality. Electronically signed by: Fernando Howell M.D. 07/04/2019 8:40 PM ECG Data Attestation: I personally reviewed and interpreted this ECG as follows: Indication: + other (stroke-like symptoms) Rate (beats per minute): 105 Rhythm: + sinus tachycardia ECG ST segments: no ST elevation ECG Findings: + Q waves (inferiorly); no PACs Comparison ECG Date: from (03/03/19) Change: no significant change Blood Pressure Blood Pressure Findings: Elevated blood pressure Blood Pressure Disposition: further management by hospitalist [facility] Narrative I did evaluate the patient as noted above. I did obtain history from the patient's caregiver as the patient is nonverbal. Apparently she had sudden onset of difficulty swallowing at breakfast this morning. The web site administrator also states that she has had difficulty walking more than usual today. Exam is very limited as the patient does not follow commands. We did attempt a walker but she is very unstable and ataxic. I did try to have her swallow some water and she had significant difficulty swallowing it. Due to her dysphasia and ataxia was concerned about a posterior circulation stroke. The family requested a strep test. Her throat is not red but we did perform it per their request and it was negative. IV access was established. I did order and personally review the patient's 12-lead EKG as described above. There is no evidence of acute ischemia. She has sinus rhythm. I did order and personally reviewed the images of the patient's chest x-ray as described above. There is no evidence of aspiration pneumonia. I did order a urine analysis. I did order and review the patient's blood work as noted in the electronic medical record. Her white count is slightly elevated but she is afebrile here. Electrolytes are unremarkable. I did order a CT of the head and CT angiogram of the head and neck. I did review the images myself as well as the radiology report as described above. There is no evidence of stroke or acute vascular abnormality. She does have what appears to be a cortical fracture of the left mandible. Her web site administrator states that she did have a tooth extraction there 2 months ago. She notes that the patient has not been having any difficulty with chewing nor does she indicate any pain with chewing. I did discuss the test results with her. I did recommend hospitalization for further evaluation of her symptoms. She may require an MRI of the brain under general anesthesia. I did discuss the case with the hospitalist and family independence case manager. Discharge Plan Visit Data *Final* Discharge Date/Time: 07/04/19 23:27 Chief Complaint: Throat Pain Stated Complaint: ASPIRATION, DIFFICULTY SWALLOWING, RASPY ED Provider: Darrel López Discharge Problem: Stroke-like symptoms, Ataxia, Dysphagia, Fracture of left side of mandibular body Patient Disposition: Admitted As Inpatient Discharge Instructions Interventions: ED Discharge Assessment Last Done: 07/04/19 23:27 Discharge Problem: Dysphagia Qualifiers: Dysphagia type: unspecified Qualified Code(s): R13.10 - Dysphagia, unspecified Fracture of left side of mandibular body Qualifiers: Encounter type: initial encounter Fracture type: closed Qualified Code(s): S02.602A - Fracture of unspecified part of body of left mandible, initial encounter for closed fracture The scribe's documentation has been prepared under my direction and personally reviewed by me in its entirety. I confirm that the note above accurately reflects all work, treatment, procedures, and medical decision making performed by me.
[2019-07-04] MEDS ORDERED: PROMETHAZINE HCL 12.5 MG in SODIUM CHLORIDE 0.9% 50 ML IV PRN (23:57)
[2019-07-04] MEDS ORDERED: XOPENEX/ATROVENT 1.25mg/0.5MG NEB COMBO NEB PRN (23:57)
[2019-07-04] MEDS ORDERED: IPRATROPIUM BROMIDE NEB SOLN 0.02% 2.5 ML VIAL INH PRN (23:57)
[2019-07-04] MEDS ORDERED: LEVALBUTEROL 1.25MG/0.5ML NEB INH PRN (23:57)
[2019-07-04] MEDS ORDERED: OLANZapine 10 MG/2.1 ML SDV IM PRN (23:57)
[2019-07-04] MEDS ORDERED: ACETAMINOPHEN 325 MG TAB PO PRN (23:57)
[2019-07-04] MEDS ORDERED: risperiDONE 2 MG TABLET PO SCH (23:57)
[2019-07-05] MEDS ORDERED: LACTATED RINGER'S 1,000 ML IV ONE (02:30)
[2019-07-05] MEDS ORDERED: LEVOTHYROXINE SODIUM 150 MCG TABLET PO SCH (06:30)
[2019-07-05 07:25] LABS: Basophils # (auto) 0.01 K/uL (0-0.2); Basophils % (auto) 0.1 %; Eosinophils # (auto) 0.11 K/uL (0-0.5); Eosinophils % (auto) 1.1 %; Hematocrit (blood only) 41.1 % (37-47); Hemoglobin 13.2 g/dL (12.0-16.0); Immature Granulocytes # (auto) 0.03 K/uL (0.00-0.02); Immature Granulocytes % (auto) 0.3 %; Lymphocytes # (auto) 1.09 K/uL (1.2-3.4); Lymphocytes % (auto) 10.5 %; Mean Corpuscular Hemoglobin 30.2 pg (25-34); Mean Corpuscular Hgb Conc 32.1 g/dL (32-36); Mean Corpuscular Volume 94.1 fL (80-100); Mean Platelet Volume 10.1 fL (7.4-10.4); Monocytes # (auto) 0.72 K/uL (0.11-0.59); Monocytes % (auto) 6.9 %; Neutrophils # (auto) 8.41 K/uL (1.4-6.5); Neutrophils % (auto) 81.1 %; Platelet Count 424 K/uL (130-400); RDW Coefficient of Variation 15.8 % (11.5-14.5); RDW Standard Deviation 54.4 fL (36.4-46.3); Red Blood Count 4.37 M/uL (4.2-5.4); White Blood Count 10.37 K/uL (4.8-10.8)
[2019-07-05 07:47] LABS: BUN Creatinine Ratio 15.4 (10-20); Creatinine Clr Calc Pharmacy 60.5 ml/min; Est GFR (African American) 75.8; Est GFR (Non-African American) 65.4; Potassium 3.7 mmol/L (3.5-5.1)
[2019-07-05] MEDS ORDERED: AMOXICILLIN/CLAVULANATE 875 MG TAB PO SCH (08:00)
[2019-07-05] MEDS ORDERED: INFLUENZA VIRUS QUAD VACCINE 0.5 ML SYR IM ONE (08:00)
[2019-07-05] MEDS ORDERED: INFLUENZA ADMINISTRATION CHARGE ONE (08:00)
[2019-07-05] MEDS: POLYETHYLENE (MIRALAX) 17 GM PACK PO SCH ×2 (08:03→08:09)
[2019-07-05] MEDS ORDERED: PSYLLIUM 58.6% POWDER PACKET PO SCH (09:00)
[2019-07-05] MEDS ORDERED: LORATADINE 10 MG TAB PO SCH (09:00)
[2019-07-05] MEDS ORDERED: [UNRECOGNIZED DRUG - OTHER] PO SCH (09:00)
[2019-07-05] MEDS ORDERED: LISINOPRIL 2.5 MG TAB PO SCH (09:00)
[2019-07-05] MEDS ORDERED: MULTIVITAMIN TAB PO SCH (09:00)
[2019-07-05] MEDS ORDERED: SERTRALINE HCL 50 MG TABLET PO SCH (09:00)
[2019-07-05] MEDS ORDERED: PSYLLIUM HUSK PO SCH (09:00)
[2019-07-05] MEDS ORDERED: ENOXAPARIN INJ 30 MG/0.3 ML SYR SQ SCH (09:00)
[2019-07-05] MEDS ORDERED: AMANTADINE HCL 100 MG CAPSULE PO SCH (09:00)
[2019-07-05] MEDS ORDERED: DOCUSATE SODIUM/SENNA 50/8.6MG TAB PO SCH (09:00)
--- NOTE | 2019-07-05 09:11 | Hospitalist Progress Note ---
Date of Service July 05, 2019 Assessment & Plan (1) Aspiration pneumonitis: Possible aspiration pneumonitis Known aspiration risk, history of esophageal dysfunction as per records Pt's sister and POA (and nurse) present at the bedside today stating that Ariadne is completely back to her baseline. She was helping her with breakfast and Ariadne had no issues with that. She also walked in the hallway with her, and says Ariadne is doing well, at her baseline. Ariadne gets upset easily about being in the hospital, and could not sleep whole night as hospital environment is very distressing to her. Patient's sister is wishing for Ariadne to be discharged back home, as she feels she is completely at her baseline now and would do better there. Ariadne is very comfortable with her sister around, cries out intermittently on my exam/ when we talk about the hospital. Discussed in detail after reviewing all the data, that Ariadne can be discharged with close PCP follow up and augmentin rx. Intellectual impairment/autism Hypertension, stable Hypothyroidism, euthyroid as of recent outpatient TSH Stroke work-up at the ER was negative Pt intermittently shakes her upper extremities (which is normal for her per sister) and cries out intermittently when in distress (which is also normal for her, per sister) Incidental finding of small avulsion fracture, left mandibular body (likely secondary to recent outpatient dental procedure) Hyperglycemia on admission - rule out DM - Hemoglobin A1c 5.6% Blood cultures- negative Ertapenem 1 dose given on admission (Unasyn on back order as per pharmacy) Augmentin course - will cont. for next 5 days Aspiration precautions Sister/POA, . Alicia Jonelle [phone] Subjective Ariadne is sitting up in the chair, fully dressed, her sister (who is also a nurse) and POA at her bedside feeding her breakfast. She says that Ariadne could not sleep at all last night because it is very distressing for her to be in the hospital. Ariadne cries out intermittently when we speak about hospital. She is otherwise very comfortable with her sister, she is drinking coffee etc. at my presence, no signs of systemic disease. Sister says that Ariadne is completely at her baseline and would strongly prefer if she went back home as she is very unhappy when she is in the hospital, sister says she can't see anything unusual about the patient. She says they walked in the hallway earlier - Ariadne was at her baseline. They had a breakfast and there were no issues there. After reviewing all the data with pt's sister, discussed with her that Ariadne can be discharged with close follow up with PCP and Augmentin for aspiration pneumo nitis. Review of Systems Review of Systems: All systems reviewed & are unremarkable except as noted in HPI & below Constitutional: no fever, no chills, no fatigue and no weakness Respiratory: no cough, no dyspnea and no pain on inspiration Cardiovascular: no chest pain, no radiating jaw, neck or arm pain, no palpitations and no edema Gastrointestinal: no abdominal pain, no nausea and no vomiting Physical Exam Physical Exam: Pt is sitting up in the chair, dressed, eating breakfast Constitutional: well developed and well nourished; no acute distress Eyes: PERRL, conjunctivae normal, anicteric sclerae ENMT: external ear and nose normal, oropharynx normal Neck: trachea midline, no thyromegaly Respiratory: normal respiratory effort; no respiratory distress and no labored breathing Auscultation: + rhonchi (very mild ); no wheezes Cardiovascular: RRR, no murmur, no edema Chest (Breasts): Chest: normal inspection of chest Gastrointestinal (Abdomen): normal bowel sounds, soft, nontender, no hepatosplenomegaly Musculoskeletal: no cyanosis or clubbing, extremities motor strength 5/5 Head/Neck/Chest: head atraumatic and neck supple Skin: no rashes, warm and dry Neurologic: moves all extremities PERRL, EOMI, nonverbal (occasionally says some words), moves all 4 extremities spontaneously (walked in hallway - at [facility]), intermittently shakes upper extremities (also at baseline) Psychiatric: Affect: euthymic affect calm and comfortable when sister is around, cries out when nurse or myself try to interview her Lymphatic: no cervical or axillary lymphadenopathy Results & Data Vital Signs (Past 12 Hours) Vital Signs Temp Pulse Pulse Resp BP BP Pulse Ox 07/05/19 07:37 36.7 C 63 20 126/76 96 07/05/19 03:08 36.8 C 105 H 19 148/79 H 95 07/05/19 00:55 90 07/04/19 23:45 36.9 C 87 18 116/80 94 11/23/19 22:17 96 H 20 124/97 94 Laboratory Results 07/05/19 07/05/19 07/05/19 Range/Units 06:54 06:54 06:54 WBC (4.8-10.8) K/uL RBC (4.2-5.4) M/uL Hgb (12.0-16.0) g/dL POC Hgb (12.0-16.0) g/dl Hct (37-47) % POC Hct (37-47) % MCV (80-100) fL MCH (25-34) pg MCHC (32-36) g/dL RDW Std Deviation (36.4-46.3) fL RDW Coeff of Ramona (11.5-14.5) % Plt Count (130-400) K/uL MPV (7.4-10.4) fL Immature Gran % (Auto) % Neut % (Auto) % Lymph % (Auto) % Iron % (Auto) % Eos % (Auto) % Baso % (Auto) % Immature Gran # (Auto) (0.00-0.02) K/uL Neut # (Auto) (1.4-6.5) K/uL Lymph # (Auto) (1.2-3.4) K/uL Iron # (Auto) (0.11-0.59) K/uL Eos # (Auto) (0-0.5) K/uL Baso # (Auto) (0-0.2) K/uL PT (9.0-12.0) Seconds INR (0.9-1.1) APTT (21.0-31.0) Seconds PTT Ratio POC Sodium (135-144) mEq/L Sodium 142 (136-145) mmol/L POC Potassium (3.3-5.0) mEq/L Potassium 3.7 (3.5-5.1) mmol/L POC Chloride (101-112) mEq/L Chloride 107 (98-107) mmol/L Carbon Dioxide 29 (21-32) mmol/L POC Total CO2 (24-31) mEq/l Anion Gap 6.0 (3-11) POC Anion Gap (16-25) mmol/L POC BUN (7-18) mg/dl BUN 15 (7-18) mg/dl Creatinine 0.98 (0.6-1.2) mg/dl POC Creatinine (0.6-1.3) mg/dl Est Cr Clr Drug Dosing 60.5 ml/min Est GFR ( Amer) 75.8 Est GFR (Non-Af Amer) 65.4 BUN/Creatinine Ratio 15.4 (10-20) Glucose 100 H (70-99) mg/dl POC Glucose (other) (70-99) mg/dl Estimat Average Glucose Pending Hemoglobin A1c Pending Lactate (0.4-2.0) mmol/L Calcium 9.0 (8.5-10.1) mg/dl POC Ioniz Calcium Kera (1.12-1.32) mmol/l Magnesium (1.8-2.4) mg/dl Total Bilirubin (0.2-1) mg/dl AST (15-37) U/L ALT (12-78) U/L Alkaline Phosphatase (45-117) U/L Troponin I (0-0.045) ng/ml Total Protein (6.4-8.2) gm/dl Albumin (3.4-5.0) gm/dl Globulin (2.5-4.0) gm/dl Albumin/Globulin Ratio (0.9-2) TSH Pending 07/05/19 07/04/19 07/04/19 Range/Units 06:54 23:13 20:22 WBC 10.37 (4.8-10.8) K/uL RBC 4.37 (4.2-5.4) M/uL Hgb 13.2 (12.0-16.0) g/dL POC Hgb 14.6 (12.0-16.0) g/dl Hct 41.1 (37-47) % POC Hct 43 (37-47) % MCV 94.1 (80-100) fL MCH 30.2 (25-34) pg MCHC 32.1 (32-36) g/dL RDW Std Deviation 54.4 H (36.4-46.3) fL RDW Coeff of Ramona 15.8 H (11.5-14.5) % Plt Count 424 H (130-400) K/uL MPV 10.1 (7.4-10.4) fL Immature Gran % (Auto) 0.3 % Neut % (Auto) 81.1 % Lymph % (Auto) 10.5 % Iron % (Auto) 6.9 % Eos % (Auto) 1.1 % Baso % (Auto) 0.1 % Immature Gran # (Auto) 0.03 H (0.00-0.02) K/uL Neut # (Auto) 8.41 H (1.4-6.5) K/uL Lymph # (Auto) 1.09 L (1.2-3.4) K/uL Iron # (Auto) 0.72 H (0.11-0.59) K/uL Eos # (Auto) 0.11 (0-0.5) K/uL Baso # (Auto) 0.01 (0-0.2) K/uL PT (9.0-12.0) Seconds INR (0.9-1.1) APTT (21.0-31.0) Seconds PTT Ratio POC Sodium 140 (135-144) mEq/L Sodium (136-145) mmol/L POC Potassium 3.7 (3.3-5.0) mEq/L Potassium (3.5-5.1) mmol/L POC Chloride 101 (101-112) mEq/L Chloride (98-107) mmol/L Carbon Dioxide (21-32) mmol/L POC Total CO2 28 (24-31) mEq/l Anion Gap (3-11) POC Anion Gap 15.0 L (16-25) mmol/L POC BUN 21 H (7-18) mg/dl BUN (7-18) mg/dl Creatinine (0.6-1.2) mg/dl POC Creatinine 1.0 (0.6-1.3) mg/dl Est Cr Clr Drug Dosing ml/min Est GFR ( Amer) Est GFR (Non-Af Amer) BUN/Creatinine Ratio (10-20) Glucose (70-99) mg/dl POC Glucose (other) 122 H (70-99) mg/dl Estimat Average Glucose Hemoglobin A1c Lactate 0.6 (0.4-2.0) mmol/L Calcium (8.5-10.1) mg/dl POC Ioniz Calcium Kera 1.15 (1.12-1.32) mmol/l Magnesium (1.8-2.4) mg/dl Total Bilirubin (0.2-1) mg/dl AST (15-37) U/L ALT (12-78) U/L Alkaline Phosphatase (45-117) U/L Troponin I (0-0.045) ng/ml Total Protein (6.4-8.2) gm/dl Albumin (3.4-5.0) gm/dl Globulin (2.5-4.0) gm/dl Albumin/Globulin Ratio (0.9-2) TSH 07/04/19 07/04/19 07/04/19 Range/Units 20:10 20:10 20:10 WBC 12.45 H (4.8-10.8) K/uL RBC 4.56 (4.2-5.4) M/uL Hgb 14.1 (12.0-16.0) g/dL POC Hgb (12.0-16.0) g/dl Hct 42.4 (37-47) % POC Hct (37-47) % MCV 93.0 (80-100) fL MCH 30.9 (25-34) pg MCHC 33.3 (32-36) g/dL RDW Std Deviation 52.9 H (36.4-46.3) fL RDW Coeff of Ramona 15.7 H (11.5-14.5) % Plt Count 466 H (130-400) K/uL MPV 9.9 (7.4-10.4) fL Immature Gran % (Auto) 0.2 % Neut % (Auto) 82.9 % Lymph % (Auto) 10.1 % Iron % (Auto) 5.8 % Eos % (Auto) 0.9 % Baso % (Auto) 0.1 % Immature Gran # (Auto) 0.02 (0.00-0.02) K/uL Neut # (Auto) 10.33 H (1.4-6.5) K/uL Lymph # (Auto) 1.26 (1.2-3.4) K/uL Iron # (Auto) 0.72 H (0.11-0.59) K/uL Eos # (Auto) 0.11 (0-0.5) K/uL Baso # (Auto) 0.01 (0-0.2) K/uL PT 11.2 (9.0-12.0) Seconds INR 1.1 (0.9-1.1) APTT 27.9 (21.0-31.0) Seconds PTT Ratio 1.0 POC Sodium (135-144) mEq/L Sodium 140 (136-145) mmol/L POC Potassium (3.3-5.0) mEq/L Potassium 3.8 (3.5-5.1) mmol/L POC Chloride (101-112) mEq/L Chloride 105 (98-107) mmol/L Carbon Dioxide 30 (21-32) mmol/L POC Total CO2 (24-31) mEq/l Anion Gap 5.0 (3-11) POC Anion Gap (16-25) mmol/L POC BUN (7-18) mg/dl BUN 22 H (7-18) mg/dl Creatinine 1.05 (0.6-1.2) mg/dl POC Creatinine (0.6-1.3) mg/dl Est Cr Clr Drug Dosing 56.5 ml/min Est GFR ( Amer) 69.7 Est GFR (Non-Af Amer) 60.2 BUN/Creatinine Ratio 21.2 H (10-20) Glucose 118 H (70-99) mg/dl POC Glucose (other) (70-99) mg/dl Estimat Average Glucose Hemoglobin A1c Lactate (0.4-2.0) mmol/L Calcium 9.6 (8.5-10.1) mg/dl POC Ioniz Calcium Kera (1.12-1.32) mmol/l Magnesium 2.1 (1.8-2.4) mg/dl Total Bilirubin 0.4 (0.2-1) mg/dl AST 14 L (15-37) U/L ALT 16 (12-78) U/L Alkaline Phosphatase 109 (45-117) U/L Troponin I < 0.015 (0-0.045) ng/ml Total Protein 7.3 (6.4-8.2) gm/dl Albumin 3.7 (3.4-5.0) gm/dl Globulin 3.6 (2.5-4.0) gm/dl Albumin/Globulin Ratio 1.0 (0.9-2) TSH Medications Administered Current Inpatient Medications Acetaminophen (Tylenol) 650 mg PO Q4H PRN PRN Reason: Pain or Fever Stop: 08/03/19 23:56 Last Admin: 07/05/19 08:36 Dose: 650 mg Documented by: Amantadine HCl (Symmetrel) 100 mg PO DAILY [facility] Stop: 08/04/19 08:59 Last Admin: 07/05/19 08:01 Dose: 100 mg Documented by: Amoxicillin/Clavulanate Potassium (Augmentin 875mg) 1 tab PO BIDM [facility] Stop: 07/12/19 07:59 Last Admin: 07/05/19 07:59 Dose: 1 tab Documented by: Buspirone HCl (Buspar) 10 mg PO TID [facility] Stop: 08/04/19 08:59 Last Admin: 07/05/19 08:00 Dose: 10 mg Documented by: Enoxaparin Sodium (Lovenox) 30 mg SQ QAM [facility] Stop: 08/04/19 08:59 Last Admin: 07/05/19 08:02 Dose: 30 mg Documented by: Promethazine HCl 12.5 mg/ (Sodium Chloride) 50.5 mls @ 202 mls/hr IV Q6H PRN PRN Reason: Nausea And Vomiting Stop: 08/03/19 23:56 Lactated Ringer's (Lr) 1,000 mls @ 80 mls/hr IV .[id number] ONE Stop: 07/05/19 14:59 Last Infusion: 07/05/19 06:06 Dose: 80 mls/hr Documented by: Ipratropium [place] (Atrovent 0.02% 0.5mg/2.5ml) 0.5 mg INH Q4H PRN PRN Reason: SOB/WHEEZING Stop: 08/03/19 23:56 Levalbuterol HCl (Xopenex 1.25mg/0.5ml Neb) 1.25 mg INH Q4H PRN PRN Reason: SOB/WHEEZING Stop: 08/03/19 23:56 Levothyroxine Sodium (Synthroid) 150 mcg PO DAILYBB [facility] Stop: 08/04/19 06:29 Last Admin: 07/05/19 07:58 Dose: 150 mcg Documented by: Lisinopril (Zestril) 2.5 mg PO DAILY [facility] Stop: 08/04/19 08:59 Last Admin: 07/05/19 08:01 Dose: 2.5 mg Documented by: Loratadine (Claritin) 10 mg PO DAILY [facility] Stop: 08/04/19 08:59 Last Admin: 07/05/19 08:00 Dose: 10 mg Documented by: Multivitamins (Multivitamin Tab) 1 tab PO DAILY [facility] Stop: 08/04/19 08:59 Last Admin: 07/05/19 07:59 Dose: 1 tab Documented by: Olanzapine (Zyprexa) 2.5 mg IM Q4H PRN PRN Reason: Anxiety/Agitation Stop: 08/03/19 23:56 Last Admin: 07/05/19 04:09 Dose: 2.5 mg Documented by: Polyethylene Glycol (Miralax Powder Packet) 17 gm PO DAILY [facility] Stop: 08/04/19 08:59 Last Admin: 07/05/19 08:09 Dose: Not Given Documented by: Psyllium Hydrophilic Mucilloid (Metamucil) 1 pkt PO DAILY [facility] Stop: 08/04/19 08:59 Last Admin: 07/05/19 08:03 Dose: 1 pkt Documented by: Risperidone (Risperdal) 2 mg PO QPM [facility] Stop: 08/03/19 23:56 Last Admin: 07/05/19 00:55 Dose: 2 mg Documented by: Senna/Docusate Sodium (Senokot S) 1 tab PO BID [facility] Stop: 08/04/19 08:59 Last Admin: 07/05/19 08:01 Dose: 1 tab Documented by: Sertraline HCl (Zoloft) 25 mg PO DAILY [facility] Stop: 08/04/19 08:59 Last Admin: 07/05/19 08:00 Dose: 25 mg Documented by: Simvastatin (Zocor) 20 mg PO QPM [facility] Stop: 08/04/19 20:59 Trazodone HCl (Desyrel) 400 mg PO HS [facility] Stop: 08/04/19 20:59
--- NOTE | 2019-07-05 12:28 | Discharge Summary ---
Date of Service July 05, 2019 Admission HPI Per Admitting Provider History obtained from family, and records. Unable to obtain history from patient secondary to nonverbal state. Medical history significant for intellectual impairment, autism, hypertension, hypothyroidism, hx of parkinsonism as per records, known aspiration risk. Caregivers noted patient having more trouble swallowing at home today. Patient coughing, and gagging, working harder to swallow. Patient noted to be more off balance at home. No fever, no chills. Patient brought to the ER for evaluation. Admission Exam Per Admitting Provider GENERAL: uncomfortable, nonverbal, agitated, no respiratory distress SKIN: Normal color, warm HEENT: [place] palpebral conjunctivae, no ptosis, dry buccal mucosa NECK : Supple, no tenderness CHEST : Decreased effort , no tenderness HEART : RRR, no obvious murmurs ABDOMEN: Some distention, nontender EXTREMITIES : Minimal LE swelling, no LE tenderness, no other conspicuous deformities noted NEUROLOGIC : incoherent, nonverbal, no facial asymmetry, uncontrolled shaking of the upper extremities, gait and stance not assessed Principal Diagnosis Aspiration pneumonitis Discharge Exam Constitutional well developed and well nourished; no acute distress Eyes PERRL, conjunctivae normal, anicteric sclerae ENMT external ear and nose normal, oropharynx normal Neck trachea midline, no thyromegaly Respiratory normal respiratory effort; no respiratory distress and no labored breathing Auscultation: + rhonchi (very mild ); no wheezes Cardiovascular RRR, no murmur, no edema Chest (Breasts) Chest: normal inspection of chest Gastrointestinal (Abdomen) normal bowel sounds, soft, nontender, no hepatosplenomegaly Musculoskeletal no cyanosis or clubbing, extremities motor strength 5/5 Head/Neck/Chest: head atraumatic and neck supple Skin no rashes, warm and dry Neurologic moves all extremities Cranial Nerves: PERRL, EOM intact bilaterally and normal facial strength walking at baseline, some shaky movements of upper extremities - also pt's baseline Psychiatric Affect: euthymic affect Lymphatic no cervical or axillary lymphadenopathy Discharge Data Allergies Allergy/AdvReac Type Severity Reaction Status Date / Time benztropine Allergy Mild Unknown Verified 07/04/19 20:43 pseudoephedrine Allergy Mild Unknown Verified 07/04/19 20:43 Consultations 07/04/19 21:49 ED Decision to Admit Stat 07/04/19 23:57 Consult Case Management - Discharge Planning Routine Ordered Studies 07/04/19 19:43 CT head/brain wo con Stat 07/04/19 19:44 CT angio head w con Stat CT angio neck with con Stat Hospital Course (1) Aspiration pneumonitis: Possible aspiration pneumonitis Known aspiration risk, history of esophageal dysfunction as per records Pt's sister and POA (and nurse) present at the bedside today stating that Ariadne is completely back to her baseline. She was helping her with breakfast and Ariadne had no issues with that. She also walked in the hallway with her, and says Ariadne is doing well, at her baseline. Ariadne gets upset easily about being in the hospital, and could not sleep whole night as hospital environment is very distressing to her. Patient's sister is wishing for Ariadne to be discharged back home, as she feels she is completely at her baseline now and would do better there. Ariadne is very comfortable with her sister around, cries out intermittently on my exam/ when we talk about the hospital. Discussed in detail after reviewing all the data, that Ariadne can be discharged with close PCP follow up and augmentin rx. Intellectual impairment/autism Hypertension, stable Hypothyroidism, euthyroid as of recent outpatient TSH Stroke work-up at the ER was negative Pt intermittently shakes her upper extremities (which is normal for her per sister) and cries out intermittently when in distress (which is also normal for her, per sister) Incidental finding of small avulsion fracture, left mandibular body (likely secondary to recent outpatient dental procedure) Hyperglycemia on admission - rule out DM - Hemoglobin A1c 5.6% Blood cultures- negative to date Ertapenem 1 dose given on admission (Unasyn on back order as per pharmacy) Augmentin course - will cont. for next 5 days Aspiration precautions Sister/POA, Ms. Alicia Sal [phone] Total Time Total Time Spent Total Time Spent (In Minutes): 40 Total Time Includes: Examination of the Patient, Discharge Planning, Medication Reconciliation and Communication With Other Providers Discharge Plan Discharge Items Patient Disposition: Home - Self-Care Reason For Visit: SEPSIS Discharge Diagnosis: Aspiration pneumonitis Activity: Resume your previous activity Activity Comment: as tolerated, pace yourself and ask for help as needed Non-emergency contact: Primary Care Provider Call non-emergency contact if: you have any medication questions and your sym ptoms worsen Follow-up/Referrals: Dmitry Romero MD [Primary Care Provider] - Diet: Heart Healthy Diet Texture: Mechanical soft (ground) Diet Comment: Aspiration precautions Addtl Attending Provider Instructions: Please follow-up with your primary care provider within the next week. Take antibiotic, Augmentin, twice a day for next 5 days unless discontinued by your primary care provider earlier. Take aspiration precautions. Pending Studies at Discharge: Yes Studies:: Throat swab negative for strep Blood cultures pending Stand-Alone Forms: [facility], Smoking Cessation Medications and DC Order Prescriptions: New amoxicillin-pot clavulanate 875-125 mg Tablet 1 tab PO BIDM 5 Days Qty: 10 RF: 0 Continued multivitamin Tablet 1 tab PO DAILY RF: 0 alendronate [Fosamax] 70 mg Tablet 70 mg PO WK RF: 0 sennosides-docusate sodium [Senexon-S] 8.6-50 mg Tablet 1 tab PO BID RF: 0 amantadine HCl 100 mg capsule 100 mg PO DAILY RF: 0 risperidone [Risperdal] 2 mg tablet 2 mg PO QPM RF: 0 trazodone 100 mg tablet 400 mg PO HS RF: 0 simvastatin [Zocor] 20 mg tablet 20 mg PO QPM RF: 0 buspirone 10 mg tablet 10 mg PO TID RF: 0 levothyroxine [Synthroid] 150 mcg tablet 150 mcg PO DAILY RF: 0 sertraline [Zoloft] 25 mg tablet 25 mg PO DAILY RF: 0 polyethylene glycol 3350 17 gram/dose powder 1 dose PO DAILY RF: 0 fluticasone propionate [Flonase Allergy Relief] 50 mcg/actuation spray,suspension 1 spray Intranasal BID RF: 0 lisinopril [Zestril] 2.5 mg tablet 2.5 mg PO DAILY RF: 0 loratadine 10 mg Tablet 10 mg PO DAILY RF: 0 melatonin 1 mg Tablet 2 mg PO HS RF: 0 Natural Vegetable Powder 3.4 gram/12 gram Powder 1 dose PO DAILY RF: 0 calcium carbonate-vitamin D3 [Calcium 600 + D(3)] 600 mg(1,500mg) -400 unit Tablet 2 tab PO QAM RF: 0 Qc Natural Vegetable Powd 1 dose PO DAILY RF: 0 Discharge Orders: Discharge Order (Routine); Ordered 07/05/19 Ordered By: Saroj Deras Admission Data Admit Date/Time: 07/04/19 22:56 Attending Provider: Saroj Deras Admit Provider: Maxime Grider Primary Care Provider: Dmitry Romero Other Providers: Maxime Grider Other Interventions: Discharge Summary Assessment (RN) Last Done: 07/05/19 13:46 DC Date/Time DO NOT enter until pt leaves facility: 07/05/19 14:34
[2019-07-05] MEDS ORDERED: AMOXICILLIN/CLAVULANATE 875MG HOME PACK PO ONE (13:33)
[2019-07-05] MEDS ORDERED: AMOXICILLIN/CLAVULANATE 875MG HOME PACK PO SCH (13:45)
[2019-07-05] MEDS ORDERED: TRAZODONE HCL 100 MG TAB PO SCH (21:00)
[2019-07-05] MEDS ORDERED: SIMVASTATIN 20 MG TAB PO SCH (21:00)
[2019-07-06 05:45] LABS: Estimated Average Glucose 114 mg/dl; Hemoglobin A1C 5.6 % (4.5-5.6)
== END 2019-07-05 14:34 | disposition home or self-care (01) | DRG 871 ==
LOC: ED 19:17 → 2W 22:56

== ENCOUNTER 2020-01-18 10:03 | Inpatient (IN) ==
[2020-01-18] MEDS ORDERED: SODIUM CHLORIDE 0.9% 500 ML IV SCH (10:45)
--- NOTE | 2020-01-18 10:51 | Emergency Department Note ---
Impression & Plan Acute hypernatremia, Weakness, Altered mental status, Acute UTI, Acute dehydration ED Provider Note NAME: TANISHA RICHARD AGE: 54 SEX: F : 1965 ARRIVES VIA: Walk-In INFORMANT: [nurses, ems] ED PROVIDER(S): [Fernando Hoskins MD] CHIEF COMPLAINT: Weakness HISTORY OF PRESENT ILLNESS: The patient is a 54-year-old female with mental disability. She typically is able to walk on her own. She is brought here by her caregiver from the [facility]. The patient in the last 24 to 36 hours has become excessively weak and no longer can stand on her own. She is more somnolent and less active. She did eat this morning and was able to take her medications. There has been no recent fall although she does fall quite frequently. She has not had cough or fever or any apparent pain. There has been no known coronavirus exposures at her facility. No cases at the facility. The staff member with the patient states the patient is typically very active and hard to control while here in the ED, that is not the case today and that is quite unusual for her. No further history obtainable given the mental disability. REVIEW OF SYSTEMS: Unobtainable given the mental disability. PMHx/PSHx: See Below SOCIAL HISTORY: See Below. PHYSICAL EXAM: GENERAL: Patient is in no acute distress. HEENT: No acute trauma, some older, healing injuries were noted. Normocephalic atraumatic, mucous membranes moist, no nasal congestion, no scleral icterus. NECK: No stridor, no adenopathy, no meningismus, trachea is midline. LUNGS: Clear to auscultation bilaterally, no wheeze, no rhonchi, breath sounds equal. HEART: Without murmurs gallops or rubs, regular rate and rhythm. ABDOMEN: Soft, nontender, bowel sounds positive, no hernias, no peritonitis. EXTREMITIES: No cyanosis or edema, full range of motion of all the joints without pain or difficulty, no signs for acute trauma. NEUROLOGIC: Awake, extremity tremor noted, nonverbal. SKIN: No rash, no jaundice, no diaphoresis. DIFFERENTIAL DIAGNOSIS: Infection, dehydration, metabolic abnormality, hypo/hyperglycemia, intracranial bleeding, UTI, electrolyte disturbance, anemia, hypoxia, cardiac sources, intracerebral event, toxicologic, neurologic, as well as other pathologies. EMERGENCY DEPARTMENT COURSE/PROCEDURES: ECG: Indication is weakness. The ECG shows a normal sinus rhythm with some nonspecific ST change. There is a potential old inferior infarct noted. The rate is 92. The QTc is 422. There are no PVCs. Compared to an ECG from 04 July 2019, there is no significant change. Continuous Cardiac Monitoring: An order was placed for continuous cardiac monitoring. The monitor shows a rate of 72 with normal sinus rhythm. MEDICAL DECISION MAKING: There is a mild leukocytosis which would be consistent with infection. The patient is anemic with a hemoglobin of 10.7. This is a hemoglobin drop for her. Platelet count somewhat elevated at 602. Renal panel testing shows hypernatremia with an elevated sodium. The sodium value was 157. There was evidence for some acute kidney injury/dehydration with a elevated creatinine. Lactic acid level was elevated consistent with possible infection/dehydration. There were a few subtle liver enzyme elevations. BNP was not elevated making CHF less likely. TSH was mildly elevated, the T4 was normal. Urinalysis does suggest infection. Coronavirus testing was negative. Chest film shows some parenchymal change of unknown etiology, atypical infection was thought possible. Brain CT shows no acute bleed or mass-effect. The patient received IV saline for hydration. She was given IV cefepime as empiric antibiotic coverage. The patient presents weak and somewhat lethargic. She appears to have an UTI, she is quite dehydrated and hypernatremic. She is anemic today. She has a change in her chest x-ray. She certainly has findings that warrant a hospital stay. I spoke to the patient's family, I spoke to the patient's staff members. Case management has been involved. The on-call hospitalist has been consulted. Further work-up and care is required inpatient. Past Med/Surg History Medical History Cellulitis of foot, left (Resolved) CKD (chronic kidney disease), stage III Baseline Cr: ~1.0 Concussion (Resolved) Diabetes insipidus (Chronic 02/14/13) HTN (hypertension) Hypothyroidism Intellectual disability Mental retardation (Chronic 02/14/13) Movement disorder Nasal bone fracture Osteoporosis Surgical History History of appendectomy History of hysterectomy Family History Father Pancreatic cancer Hypertension Diabetes Mother FH: arrhythmia Social History Preferred Language: Icelandic Communication Ability: Impaired Doughnut Fryer Required: No Beliefs That Will Affect Care: None Current Living Situation: Other Current Living Situation Comment: The [facility]- [phone] Feels Safe at Home: Yes Smoking Status: Never smoker Second Hand Exposure: No ; Hx Alcohol Use: No Hx Substance Use: No Allergies Allergies Allergy/AdvReac Type Severity Reaction Status Date / Time benztropine Allergy Mild Unknown Verified 01/18/20 12:02 pseudoephedrine Allergy Mild Unknown Verified 01/18/20 12:02 Home Meds Home Medications Medication Instructions Recorded Confirmed Natural Vegetable Powder 1 dose PO QAM 09/13/18 01/18/20 alendronate [Fosamax] 70 mg PO TU 09/13/18 01/18/20 amantadine HCl 100 mg PO QAM 09/13/18 01/18/20 buspirone 10 mg PO TID 09/13/18 01/18/20 fluticasone propionate [Flonase 1 spray INTRANASAL BID 09/13/18 01/18/20 Allergy Relief] levothyroxine [Synthroid] 150 mcg PO QA 09/13/18 01/18/20 lisinopril [Zestril] 2.5 mg PO QAM 09/13/18 01/18/20 loratadine 10 mg PO QAM 09/13/18 01/18/20 melatonin 2 mg PO 09/13/18 01/18/20 multivitamin 1 tab PO QAM 09/13/18 01/18/20 polyethylene glycol 3350 1 dose PO QAM 09/13/18 01/18/20 risperidone [Risperdal] 2 mg PO HS 09/13/18 01/18/20 sertraline [Zoloft] 25 mg PO QAM 09/13/18 01/18/20 simvastatin [Zocor] 20 mg PO HS 09/13/18 01/18/20 trazodone 400 mg PO HS 09/13/18 01/18/20 bisacodyl 10 mg MT DIRECTED PRN 11/15/19 01/18/20 calcium carbonate [Calcium 600] 1,200 mg PO QAM 11/15/19 01/18/20 sennosides-docusate sodium 1 tab PO BID 11/15/19 01/18/20 [Senexon-S] Results & Data (ED) Vital Signs Vital Signs - 24 hr 01/18/20 10:09 01/18/20 10:49 01/18/20 12:03 Temperature 36.6 C Temperature Source Oral Pulse Rate 100 H Pulse Rate [Apical] 78 Respiratory Rate 18 18 Respiratory Effort / Characteristics Non-Labored Respiratory Depth Normal Blood Pressure 109/72 Blood Pressure [Left Arm] 154/88 H Blood Pressure Mean 84 Blood Pressure Mean [Left Arm] 110 Blood Pressure Position Sitting Pulse Oximetry 96 96 97 Oxygen Delivery Method Room Air Room Air Room Air Sepsis Recent Fever Within 48 Hours No Sepsis New/Unexplained Change in Mental Status No Sepsis Action Taken by Nursing No Action Required Home Medications Current Medication List: was personally reviewed by me Laboratory Data Attestation: I reviewed the patient's lab results. Result diagrams: 01/18/20 11:23 01/18/20 15:59 Lab Results 01/18/20 01/18/20 01/18/20 Range/Units 11:10 11:10 11:23 WBC 12.88 H (4.8-10.8) K/uL RBC 3.93 L (4.2-5.4) M/uL Hgb 10.7 L (12.0-16.0) g/dL Hct 34.9 L (37-47) % MCV 88.8 (80-100) fL MCH 27.2 (25-34) pg MCHC 30.7 L (32-36) g/dL RDW Std Deviation 54.1 H (36.4-46.3) fL RDW Coeff of Ramona 16.8 H (11.5-14.5) % Plt Count 602 H (130-400) K/uL MPV 10.1 (7.4-10.4) fL Immature Gran % (Auto) 0.3 % Neut % (Auto) 87.8 % Lymph % (Auto) 4.5 % [place] % (Auto) 7.2 % Eos % (Auto) 0.0 % Baso % (Auto) 0.2 % Immature Gran # (Auto) 0.04 H (0.00-0.02) K/uL Neut # (Auto) 11.31 H (1.4-6.5) K/uL Lymph # (Auto) 0.58 L (1.2-3.4) K/uL [place] # (Auto) 0.93 H (0.11-0.59) K/uL Eos # (Auto) 0.00 (0-0.5) K/uL Baso # (Auto) 0.02 (0-0.2) K/uL Sodium 157 H* (136-145) mmol/L Potassium 4.0 (3.5-5.1) mmol/L Chloride 122 H (98-107) mmol/L Carbon Dioxide 29 (21-32) mmol/L Anion Gap 5.0 (3-11) BUN 37 H (7-18) mg/dl Creatinine 1.50 H (0.6-1.2) mg/dl Est Cr Clr Drug Dosing Not Reportable Est GFR ( Amer) 45.3 Est GFR (Non-Af Amer) 39.1 BUN/Creatinine Ratio 24.4 H (10-20) Glucose 130 H (70-99) mg/dl Lactate (0.4-2.0) mmol/L Calcium 9.6 (8.5-10.1) mg/dl Magnesium 2.9 H (1.8-2.4) mg/dl Total Bilirubin 0.3 (0.2-1) mg/dl AST 73 H (15-37) U/L ALT 47 (12-78) U/L Alkaline Phosphatase 146 H (45-117) U/L Troponin I < 0.015 (0-0.045) ng/ml NT-Pro-B Natriuret Pep 470 Cancelled (0-900) pg/ml Total Protein 7.7 (6.4-8.2) gm/dl Albumin 3.0 L (3.4-5.0) gm/dl Globulin 4.7 H (2.5-4.0) gm/dl Albumin/Globulin Ratio 0.6 L (0.9-2) Procalcitonin (0-0.5) ng/ml TSH 11.300 H (0.300-4.500) uIu/ml Free T4 1.17 (0.8-1.6) ng/dl Urine Color Urine Appearance (Clear) Urine pH (4.5-7.5) Ur Specific [place] (1.000-1.030) Urine Protein (Negative) Urine Glucose (UA) (Negative) Urine Ketones (Negative) Urine Blood (Negative) Urine Nitrite (Negative) Urine Bilirubin (Negative) Urine Urobilinogen (Negative) Ur Leukocyte Esterase (Negative) Urine WBC (Auto) (0-5) /hpf Urine RBC (Auto) (0-4) /hpf U Hyaline Cast (Auto) (0-5) /lpf U Epithel Cells (Auto) (0-5) /lpf Urine Bacteria (Auto) (Negative) 01/18/20 01/18/20 01/18/20 Range/Units 11:23 11:26 11:30 WBC (4.8-10.8) K/uL RBC (4.2-5.4) M/uL Hgb (12.0-16.0) g/dL Hct (37-47) % MCV (80-100) fL MCH (25-34) pg MCHC (32-36) g/dL RDW Std Deviation (36.4-46.3) fL RDW Coeff of Ramona (11.5-14.5) % Plt Count (130-400) K/uL MPV (7.4-10.4) fL Immature Gran % (Auto) % Neut % (Auto) % Lymph % (Auto) % [place] % (Auto) % Eos % (Auto) % Baso % (Auto) % Immature Gran # (Auto) (0.00-0.02) K/uL Neut # (Auto) (1.4-6.5) K/uL Lymph # (Auto) (1.2-3.4) K/uL [place] # (Auto) (0.11-0.59) K/uL Eos # (Auto) (0-0.5) K/uL Baso # (Auto) (0-0.2) K/uL Sodium (136-145) mmol/L Potassium (3.5-5.1) mmol/L Chloride (98-107) mmol/L Carbon Dioxide (21-32) mmol/L Anion Gap (3-11) BUN (7-18) mg/dl Creatinine (0.6-1.2) mg/dl Est Cr Clr Drug Dosing Est GFR ( Amer) Est GFR (Non-Af Amer) BUN/Creatinine Ratio (10-20) Glucose (70-99) mg/dl Lactate 2.5 H* (0.4-2.0) mmol/L Calcium (8.5-10.1) mg/dl Magnesium (1.8-2.4) mg/dl Total Bilirubin (0.2-1) mg/dl AST (15-37) U/L ALT (12-78) U/L Alkaline Phosphatase (45-117) U/L Troponin I (0-0.045) ng/ml NT-Pro-B Natriuret Pep (0-900) pg/ml Total Protein (6.4-8.2) gm/dl Albumin (3.4-5.0) gm/dl Globulin (2.5-4.0) gm/dl Albumin/Globulin Ratio (0.9-2) Procalcitonin 0.28 (0-0.5) ng/ml TSH (0.300-4.500) uIu/ml Free T4 (0.8-1.6) ng/dl Urine Color Yellow Urine Appearance Clear (Clear) Urine pH 7.0 (4.5-7.5) Ur Specific [place] 1.014 (1.000-1.030) Urine Protein Trace H (Negative) Urine Glucose (UA) Negative (Negative) Urine Ketones Negative (Negative) Urine Blood Trace H (Negative) Urine Nitrite Positive A (Negative) Urine Bilirubin Negative (Negative) Urine Urobilinogen Negative (Negative) Ur Leukocyte Esterase 2+ H (Negative) Urine WBC (Auto) >30 H (0-5) /hpf Urine RBC (Auto) 0-4 (0-4) /hpf U Hyaline Cast (Auto) 0 (0-5) /lpf U Epithel Cells (Auto) 5-10 H (0-5) /lpf Urine Bacteria (Auto) 2+ H (Negative) Administered Medications Dextrose (D5w) 1,000 mls @ 100 mls/hr IV .Q10H SOPHIA Stop: 02/17/20 17:03 Last Admin: 01/18/20 17:16 Dose: 100 mls/hr Documented by: [id number] Discontinued Medications Sodium Chloride (Nss) 500 mls @ 999 mls/hr IV .Q31M SOPHIA Stop: 01/18/20 11:15 Last Infusion: 01/18/20 12:25 Dose: 0 mls/hr Documented by: [id number] Admin: 01/18/20 11:49 Dose: 999 mls/hr Documented by: [id number] Cefepime HCl (Maxipime) 2,000 mg in 20 mls @ 5 mls/min IV NOW STA; Protocol Stop: 01/18/20 12:06 Last Admin: 01/18/20 12:22 Dose: 5 mls/min Documented by: [id number] Miscellaneous (Patient's Height And/Or Weight Needed) 1 ea N/A Q1H SOPHIA Stop: 01/18/20 22:16 Last Admin: 01/18/20 18:05 Dose: Not Given Documented by: [id number] Admin: 01/18/20 18:05 Dose: Not Given Documented by: [id number] Imaging Data Radiologist's Impression: XR chest 1V portable CLINICAL HISTORY: weakness COMPARISON STUDY: 07/04/2019 FINDINGS: The heart remains normal in size. Since the prior study, the patient has developed micronodular pulmonary opacities. This could be on an infectious/inflammatory basis (including atypical infection such as TB), or secondary to miliary metastasis. Clinical and radiographic follow-up is recommended. There is an old healed right clavicular fracture. There are no significant pleural effusions. IMPRESSION: Interval development of nonspecific diffuse bilateral micronodular pulmonary opacities. Clinical and radiographic follow-up recommended. HEAD CT NONCONTRAST CT DOSE: 887.21 mGycm HISTORY: weakness TECHNIQUE: Multiaxial CT images of the head were performed without the use of intravenous contrast. Automated exposure control was utilized for this study. A dose lowering technique was utilized adhering to the principles of ALARA. Comparison: Head CT 11/15/2019. Findings: Mild mucosal thickening within the left maxillary sinus, unchanged. The mastoid air cells are clear. The calvarium and skull base are intact. The ventricles and sulci are within normal limits. There is no mass, hematoma, midline shift, or acute infarct. Old bilateral nasal bone fractures are again noted. Impression: No significant change compared to the prior study. No acute intracranial abnormality. Blood Pressure Blood Pressure Findings: Normal blood pressure Discharge Plan Visit Data *Final* Discharge Date/Time: 01/18/20 16:11 Chief Complaint: Weakness Stated Complaint: WEIGHT LOSS, WEAKNESS ED Provider: Fernando Hoskins Discharge Problem: Acute hypernatremia, Weakness, Altered mental status, Acute UTI, Acute dehydration Patient Disposition: Admitted As Inpatient Condition: Fair Discharge Instructions Interventions: ED Discharge Assessment Last Done: 01/18/20 16:11 Discharge Problem: Altered mental status Qualifiers: Altered mental status type: somnolence Qualified Code(s): R40.0 - Somnolence
--- NOTE | 2020-01-18 11:04 | XRay Report ---
XR chest 1V portable CLINICAL HISTORY: weakness COMPARISON STUDY: 07/04/2019 FINDINGS: The heart remains normal in size. Since the prior study, the patient has developed micronod ular pulmonary opacities. This could be on an infectious/inflammatory basis (including atypical infec tion such as TB), or secondary to miliary metastasis. Clinical and radiographic follow-up is recommen ded. There is an old healed right clavicular fracture. There are no significant pleural effusions. IMPRESSION: Interval development of nonspecific diffuse bilateral micronodular pulmonary opacities. C linical and radiographic follow-up recommended. ACT 112: Negative or not required by law. Electronically signed by: Javier Donaldson M.D. 01/18/2020 11:02 AM
[2020-01-18 11:45] LABS: Basophils # (auto) 0.02 K/uL (0-0.2); Basophils % (auto) 0.2 %; Hematocrit (blood only) 34.9 % (37-47); Hemoglobin 10.7 g/dL (12.0-16.0); Immature Granulocytes # (auto) 0.04 K/uL (0.00-0.02); Immature Granulocytes % (auto) 0.3 %; Lymphocytes # (auto) 0.58 K/uL (1.2-3.4); Lymphocytes % (auto) 4.5 %; Mean Corpuscular Hemoglobin 27.2 pg (25-34); Mean Corpuscular Hgb Conc 30.7 g/dL (32-36); Mean Corpuscular Volume 88.8 fL (80-100); Mean Platelet Volume 10.1 fL (7.4-10.4); Monocytes # (auto) 0.93 K/uL (0.11-0.59); Monocytes % (auto) 7.2 %; Neutrophils # (auto) 11.31 K/uL (1.4-6.5); Neutrophils % (auto) 87.8 %; Platelet Count 602 K/uL (130-400); RDW Coefficient of Variation 16.8 % (11.5-14.5); RDW Standard Deviation 54.1 fL (36.4-46.3); Red Blood Count 3.93 M/uL (4.2-5.4); White Blood Count 12.88 K/uL (4.8-10.8)
[2020-01-18 11:48] LABS: Alanine Aminotransferase 47 U/L (12-78); Aspartate Aminotransferase 73 U/L (15-37); BUN Creatinine Ratio 24.4 (10-20); Blood Urea Nitrogen 37 mg/dl (7-18); Calcium 9.6 mg/dl (8.5-10.1); Carbon Dioxide 29 mmol/L (21-32); Chloride 122 mmol/L (98-107); Est GFR (African American) 45.3; Est GFR (Non-African American) 39.1; Glucose 130 mg/dl (70-99); Magnesium 2.9 mg/dl (1.8-2.4); Sodium 157 mmol/L (136-145)
[2020-01-18 11:50] LABS: Appearance Urine Clear (Clear); Bacteria Urine Automated 2+ (Negative); Bilirubin Urine Negative (Negative); Blood Urine Trace (Negative); Cast Urine Automated 0 /lpf (0-5); Color Urine Yellow; Glucose Urine UA Negative (Negative); Ketones Urine Negative (Negative); Leukocyte Esterase Urine 2+ (Negative); Nitrite Urine Positive (Negative); Protein Urine Trace (Negative); RBC Urine Automated 0-4 /hpf (0-4); Specific Gravity Urine 1.014 (1.000-1.030); Urobilinogen Urine Negative (Negative); WBC Urine Automated >30 /hpf (0-5)
--- NOTE | 2020-01-18 11:55 | CT Scan Report ---
HEAD CT NONCONTRAST CT DOSE: 887.21 mGycm HISTORY: weakness TECHNIQUE: Multiaxial CT images of the head were performed without the use of intravenous contrast. A utomated exposure control was utilized for this study. A dose lowering technique was utilized adheri ng to the principles of ALARA. Comparison: Head CT 11/15/2019. Findings: Mild mucosal thickening within the left maxillary sinus, unchanged. The mastoid air cells a re clear. The calvarium and skull base are intact. The ventricles and sulci are within normal limits. There is no mass, hematoma, midline shift, or acute infarct. Old bilateral nasal bone fractures are again noted. Impression: No significant change compared to the prior study. No acute intracranial abnormality. ACT 112: Negative or not required by law. Electronically signed by: David Green M.D. 01/18/2020 11:54 AM
[2020-01-18 11:57] LABS: Albumin Globulin Ratio 0.6 (0.9-2); Alkaline Phosphatase 146 U/L (45-117); Bilirubin,Total 0.3 mg/dl (0.2-1); Globulin 4.7 gm/dl (2.5-4.0); NT Pro B Type Natriuretic Pept 470 pg/ml (0-900); Total Protein 7.7 gm/dl (6.4-8.2); Troponin I < 0.015 ng/ml (0-0.045)
[2020-01-18] MEDS ORDERED: CEFEPIME 2,000 MG/20 ML VIAL IV STA (12:03)
[2020-01-18 12:11] LABS: T4 Free Thyroxine 1.17 ng/dl (0.8-1.6)
--- NOTE | 2020-01-18 13:48 | History & Physical Report ---
Date of Service January 18, 2020 Assessment & Plan (1) Weakness: Pt is 54 y/o F with PMH intellectual disability, hypothyroidism, movement disorder, CKD III presented to ER from [facility] for lethargy since yesterday. In ER pt afebrile, P: 100 down to 78, R: 18, BP: 109/72, 154/88, 96% on RA. WBC: 12.8, H/H: 10.7/34 (baseline Hgb: 13), Plt: 602 (baseline in 400's), Na: 157, K: 4.0, Cl: 122, BUN: 37, Cr: 1.5, gluc: 130, Lactate: 2.5, UA: +nitrite, 2+leuk esterase, >30 WBC, 2+bacteria, 5-[address] Head: no acute changes DDX: hypernatremia, UTI, sepsis, dehydration -Trend lactate -In ER given Cefepime, will continue for now -Pending blood cultures, urine culture -Monitor CBC, BMP -Hypernatremia management as below (2) Hypernatremia: Na: 157 -In ER given 500ml NSS -Nephrology consult, document control clerk recommended D5W at 100ml/hr and BMP BID -Monitor BMP closely (3) UTI (urinary tract infection): UA: +nitrite, 2+leuk esterase, >30 WBC, 2+bacteria, 5-10 epithelial -In ER given Cefepime -Will continue cefepime for now -Pending urine culture (4) Abnormal CXR: CXR:Interval development of nonspecific diffuse bilateral micronodular pulmonary opacities DDX: infection, atypical infection, metastasis - COVID 19 PCR negative -Obtain afb sputum smear/culture x 3 -Obtain quantiferon gold -Will place pt in airborne isolation -Pending CT chest -Pulmonology consult, spoke to document control clerk who also recommends respiratory viral panel (5) Acute kidney injury superimposed on CKD: BUN: 37, Cr: 1.5 Baseline Cr: ~1.0 -Monitor renal functions -Avoid nephrotoxic agents when possible (6) Intellectual disability: -one on one observation -continue home meds (7) HTN (hypertension): -Hold lisinopril with WESLEY -Monitor BP (8) Hypothyroidism: TSH: 11.3 Will need levothyroxine adjusted (9) Movement disorder: -continue amantadine DVT Prophylaxis -SCDs Full Code Follows with Dr Romero for routine care Pt's brother and guardian, Dr Dmitry Rojo would like updates on pt's condition. Pt's sister and guardian, and reported POA, Alicia Sal. Pt's chart scribed by myself, Kourtney Ross PA-C. Pt seen by Dr Daniel. Care coordinated with Dr Daniel. Please see Dr Daniel's addendum for HPI, PE, further assessment and plan History of Present Illness 54-year-old female with severe mental retardation, resident of [facility], And other problems noted below presenting with generalized weakness for the past few days. History obtained from staff at the [facility] as well as the caregiver present at bedside. Per staff, they have been noticing that the patient has been losing weight unintentionally for the past 3 to 4 months. For the past few days, the patient was noted to have increased generalized weakness- having difficulty moving around, getting up from bed or from the chair as well as drowsy. Her appetite has been fair, noted to have not been drinking much for the past few days. No fevers or chills, no cough except occasionally when she is eating or drinking, no shortness of breath. No other symptoms. At the ER patient was found to have sodium of 157. UA suggestive of urinary tract infection. Chest x-ray showed bilateral scattered pulmonary nodules. COVID screen negative On exam, the patient is seen with caregiver at the [facility] and RNs at the bedside. Patient is awake and alert, occasionally moans, but mostly nonverbal and does not follow commands. She appeared comfortable, but intermittently appeared anxious. As per caregiver, she is mostly back to her baseline mental status. Primary Care Provider: Dmitry Romero MD Allergies Allergy/AdvReac Type Severity Reaction Status Date / Time benztropine Allergy Mild Unknown Verified 01/18/20 12:02 pseudoephedrine Allergy Mild Unknown Verified 01/18/20 12:02 Home Medications Home Medications Medication Instructions Recorded Confirmed Type Natural Vegetable Powder 1 dose PO QAM 09/13/18 01/18/20 History alendronate [Fosamax] 70 mg PO TU 09/13/18 01/18/20 History amantadine HCl 100 mg PO QAM 09/13/18 01/18/20 History buspirone 10 mg PO TID 09/13/18 01/18/20 History fluticasone propionate [Flonase 1 spray INTRANASAL BID 09/13/18 01/18/20 History Allergy Relief] levothyroxine [Synthroid] 150 mcg PO QAM 09/13/18 01/18/20 History lisinopril [Zestril] 2.5 mg PO QAM 09/13/18 01/18/20 History loratadine 10 mg PO QAM 09/13/18 01/18/20 History melatonin 2 mg PO HS 09/13/18 01/18/20 History multivitamin 1 tab PO QAM 09/13/18 01/18/20 History polyethylene glycol 3350 1 dose PO QAM 09/13/18 01/18/20 History risperidone [Risperdal] 2 mg PO HS 09/13/18 01/18/20 History sertraline [Zoloft] 25 mg PO QAM 09/13/18 01/18/20 History simvastatin [Zocor] 20 mg PO HS 09/13/18 01/18/20 History trazodone 400 mg PO HS 09/13/18 01/18/20 History bisacodyl 10 mg [place] DIRECTED PRN 11/15/19 01/18/20 History calcium carbonate [Calcium 600] 1,200 mg PO QAM 11/15/19 01/18/20 History sennosides-docusate sodium 1 tab PO BID 11/15/19 01/18/20 History [Senexon-S] Past Med/Surg History Medical History Cellulitis of foot, left (Resolved) CKD (chronic kidney disease), stage III Baseline Cr: ~1.0 Concussion (Resolved) Diabetes insipidus (Chronic 02/14/13) HTN (hypertension) Hypothyroidism Intellectual disability Mental retardation (Chronic 02/14/13) Movement disorder Nasal bone fracture Osteoporosis Surgical History History of appendectomy History of hysterectomy Family History Father Pancreatic cancer Hypertension Diabetes Mother FH: arrhythmia Social History Preferred Language: Thai Communication Ability: Impaired Wrap Yarn Sorter Required: No Beliefs That Will Affect Care: None Current Living Situation: Other Current Living Situation Comment: [facility]- [phone] Feels Safe at Home: Yes Smoking Status: Never smoker Second Hand Exposure: No ; Hx Alcohol Use: No Hx Substance Use: No Review of Systems Review of Systems: All systems reviewed & are unremarkable except as noted in HPI & below Physical Exam Physical Exam: General-awake, alert, not oriented, nonverbal, not in distress, breathing with no effort or accessory muscle use Head- atraumatic Eyes- PERRL, EOMI, anicteric ENT- oropharynx clear Neck- supple, no JVD, no adenopathy, no thyromegaly; carotids +2/2, no bruits appreciated Lungs- clear to auscultation bilaterally, no rales/wheezes Heart- normal rate, regular rhythm; no murmur, no gallop, no rub appreciated Abdomen- normal bowel sounds, mildly distended, soft, nontender, no masses palpated Extremities- Positive multiple small hematomas on bilateral lower extremities no pretibial edema, no calf tenderness; peripheral pulses intact Neuro-awake and alert but not oriented, nonverbal full neurologic exam difficult to perform due to patient's cognitive status, No facial droop, moves all extremities equally Skin- warm & dry Results & Data Results & Data ([facility]) Vital Signs (Past 12 Hours) Vital Signs Temp Pulse Pulse Resp BP BP Pulse Ox 01/18/20 12:03 78 18 154/88 H 97 01/18/20 10:49 96 01/18/20 10:09 36.6 C 100 H 18 109/72 96 Laboratory Results Short CBC 01/18/20 Range/Units 11:23 WBC 12.88 H (4.8-10.8) K/uL Hgb 10.7 L (12.0-16.0) g/dL Hct 34.9 L (37-47) % Plt Count 602 H (130-400) K/uL BMP 01/18/20 11:10 Sodium 157 H* Potassium 4.0 Chloride 122 H Carbon Dioxide 29 BUN 37 H Creatinine 1.50 H Glucose 130 H Calcium 9.6 Cardiac Enzymes 01/18/20 Range/Units 11:10 Troponin I < 0.015 (0-0.045) ng/ml Liver Function 01/18/20 Range/Units 11:10 Total Bilirubin 0.3 (0.2-1) mg/dl AST 73 H (15-37) U/L ALT 47 (12-78) U/L Alkaline Phosphatase 146 H (45-117) U/L Albumin 3.0 L (3.4-5.0) gm/dl Urine 01/18/20 Range/Units 11:30 Urine Color Yellow Urine Appearance Clear (Clear) Urine pH 7.0 (4.5-7.5) Ur Specific [place] 1.014 (1.000-1.030) Urine Protein Trace H (Negative) Urine Glucose (UA) Negative (Negative) Diagnostic Findings CXR: IMPRESSION: Interval development of nonspecific diffuse bilateral micronodular pulmonary opacities. Clinical and radiographic follow-up recommended. CT HEAD: Impression: No significant change compared to the prior study. No acute intracranial abnormality. Code Status & VTE Plan VTE Prophylaxis Plan VTE Prophylaxis will be ordered: Yes Supervising Physician Co-Signing Physician Notes Attending Addendum: care coordinated with GWEN Leiva please refer to her notes for full details, I agree with her notes patient seen and examined, records reviewed by myself as well on exam, patient seen resting in bed, not in distress, somewhat anxious Mostly better mental status as per caregiver at the bedside Positive BM this morning no other symptoms as per caregiver Physical exam please refer to above WBC 12.8 Hg 10[address] chest: 1. Innumerable randomly distributed solid pulmonary nodules are noted within all segments bilaterally measuring 2-6 mm, new from 07/04/2019. A few nodules also demonstrate some central cavitation. Differential considerations would include an atypical pneumonitis versus pulmonary metastasis. Close follow-up is needed. 2. No adenopathy. 3. Multiple ill-defined hepatic masses. These findings should be correlated with prior imaging. Hepatic metastatic disease is a differential consideration. A ASSESSMENT AND PLAN 54-year-old female with severe mental retardation, resident of [facility], And other problems noted below presenting with generalized weakness for the past few days. Metabolic encephalopathy, weakness likely due to hypernatremia Hypernatremia likely hypovolemic secondary to poor oral intake Sodium on admission 157, repeat at around 4 PM 155 Patient discussed with slip operator Dr. Morales, recommend SHAILESH 5 water, with sodium checks every 12 hours PT and OT evaluation Pulmonary nodules, bilateral Rule out infectious/inflammatory versus metastatic disease process AFB x3, QuantiFERON gold ordered to rule out TB Droplet, airborne, contact isolation ordered Pulmonary service consulted Hepatic masses Upper abdomen is suboptimally visualized secondary to respiratory motion artifact. There are several ill-defined hypodense liver lesions measuring up to 5.3 cm within the right hepatic lobe and 3.0 cm within the left hepatic lobe. CT abdomen pelvis ordered GI service consulted Acute kidney injury on CKD IV fluids ordered, slip operator on board UTI Follow-up urine cultures Cefepime ordered High aspiration risk Clear liquid diet for now Speech therapist consulted Discussed with patient's sister Alicia and brother Dmitry in detail and at length All questions were answered Understand, agreeable, comfortable with plan of care other diagnoses and plan of care as per [] Oumsane Daniel MD
--- NOTE | 2020-01-18 13:50 | CT Scan Report ---
CT chest wo con CT DOSE: 217.19 mGy.cm CLINICAL HISTORY: 54 years-old Female with nodular lung opacities. Follow-up study in a patient with pulmonary nodular opacities. TECHNIQUE: Multiaxial CT images of the chest were performed without contrast. A dose lowering techni que was utilized adhering to the principles of ALARA. COMPARISON: Chest radiograph of same day, CT cervical spine 11/15/2019 10 03/03/2019 FINDINGS: Unremarkable thyroid. Evaluation for adenopathy is limited without the use of IV contrast. No definit e adenopathy identified. The heart is upper limits of normal in size. Mild coronary artery calcificat ions. No thoracic aortic aneurysm. Respiratory motion artifact limits evaluation of the lungs. No pneumothorax or pleural effusion. Innumerable randomly distributed solid pulmonary nodules seen wi thin the lungs bilaterally measuring 2-6 mm. A few scattered solid pulmonary nodules demonstrate cent ral cavitation (for example see images 71 and 84 of series 4). Mild reticular opacities are most pron ounced in the lung bases and right upper lobe. Patchy right upper lobe groundglass opacities. Central airways are patent. Upper abdomen is suboptimally visualized secondary to respiratory motion artifact. There are several ill-defined hypodense liver lesions measuring up to 5.3 cm within the right hepatic lobe and 3.0 cm w ithin the left hepatic lobe. Moderate fecal retention. Mild nonspecific distal esophageal wall thicke jeffery. Healed remote fracture the distal right clavicle. Degenerative changes of the shoulders and spi ne. Multiple healed remote right-sided rib fractures. Healed mid mandibular fracture. Mild superior e ndplate compression of multiple vertebral bodies appears to be on a chronic basis. IMPRESSION: 1. Innumerable randomly distributed solid pulmonary nodules are noted within all segments bilaterally measuring 2-6 mm, new from 07/04/2019. A few nodules also demonstrate some central cavitation. Diffe rential considerations would include an atypical pneumonitis versus pulmonary metastasis. Close follo w-up is needed. 2. No adenopathy. 3. Multiple ill-defined hepatic masses. These findings should be correlated with prior imaging. Hepat ic metastatic disease is a differential consideration. ACT 112: Negative or not required by law. Electronically signed by: Bobby Khan M.D. 01/18/2020 1:49 PM
[2020-01-18 16:34] LABS: BUN Creatinine Ratio 23.3 (10-20); Blood Urea Nitrogen 34 mg/dl (7-18); Calcium 8.9 mg/dl (8.5-10.1); Carbon Dioxide 30 mmol/L (21-32); Chloride 121 mmol/L (98-107); Est GFR (African American) 46.4; Est GFR (Non-African American) 40.1; Glucose 157 mg/dl (70-99); Potassium 3.4 mmol/L (3.5-5.1); Sodium 155 mmol/L (136-145)
[2020-01-18 16:57] LABS: Adenovirus PCR Not Detected (NotDetected); Bordetella parapertussis PCR Not Detected (NotDetected); Bordetella pertussis PCR Not Detected (NotDetected); Chlamydia pneumoniae PCR Not Detected (NotDetected); Coronavirus 229E PCR Not Detected (NotDetected); Coronavirus HKU1 PCR Not Detected (NotDetected); Coronavirus NL63 PCR Not Detected (NotDetected); Coronavirus OC43PCR Not Detected (NotDetected); Human Metapneumovirus PCR Not Detected (NotDetected); Influenza A PCR Not Detected (NotDetected); Influenza B PCR Not Detected (NotDetected); Mycoplasma pneumoniae PCR Not Detected (NotDetected); Parainfluenza Virus 1 PCR Not Detected (NotDetected); Parainfluenza Virus 2 PCR Not Detected (NotDetected); Parainfluenza Virus 3 PCR Not Detected (NotDetected); Parainfluenza Virus 4 PCR Not Detected (NotDetected); Respiratory Syncytial VirusPCR Not Detected (NotDetected); Rhinovirus/Enterovirus PCR Not Detected (NotDetected)
[2020-01-18] MEDS ORDERED: bisacodyL 10 MG SUPP PR PRN (17:04)
[2020-01-18] MEDS ORDERED: ONDANSETRON INJ 2 MG/ML 2 ML VIAL IV PRN (17:04)
[2020-01-18] MEDS ORDERED: ACETAMINOPHEN 325 MG TAB PO PRN (17:04)
[2020-01-18] MEDS ORDERED: MELATONIN 3 MG TAB PO PRN (17:07)
[2020-01-18] MEDS: DEXTROSE 5% 1,000 ML IV SCH (17:16)
[2020-01-18] MEDS ORDERED: POTASSIUM CHLORIDE 20 MEQ TABCR PO ONE (17:45)
[2020-01-18] MEDS: PATIENT'S HEIGHT AND/OR WEIGHT NEEDED SCH (18:05)
[2020-01-18 20:35] LABS: BUN Creatinine Ratio 22.9 (10-20); Calcium 9.1 mg/dl (8.5-10.1); Creatinine Clr Calc Pharmacy 40.6 ml/min; Est GFR (African American) 53.9; Est GFR (Non-African American) 46.5; Potassium 3.3 mmol/L (3.5-5.1)
[2020-01-18] MEDS: risperiDONE 2 MG TABLET PO SCH (22:35)
[2020-01-18] MEDS: SIMVASTATIN 20 MG TAB PO SCH (22:36)
[2020-01-18] MEDS: DOCUSATE SODIUM/SENNA 50/8.6MG TAB PO SCH (22:36)
[2020-01-18] MEDS: FLUTICASONE PROPIONATE NA SPR 16 GM BTL NAE SCH (22:37)
[2020-01-18] MEDS: CEFEPIME 2,000 MG in SYRINGE 7.5 ML IV SCH (22:37)
[2020-01-18] MEDS: TRAZODONE HCL 100 MG TAB PO SCH (22:37)
--- NOTE | 2020-01-18 22:50 | Electrocardiogram Report ---
Test Reason : Blood Pressure : / mmHG Vent. Rate : 092 BPM Atrial Rate : 092 BPM P-R Int : 128 ms QRS Dur : 094 ms QT Int : 342 ms P-R-T Axes : 043 233 027 degrees QTc Int : 422 ms Normal sinus rhythm Right superior axis deviation Right ventricular hypertrophy Possible Inferior infarct Nonspecific ST and T wave abnormality Abnormal ECG When compared with ECG of 04-JUL-2019 19:55, Borderline criteria for Anterolateral infarct are no longer Present T wave inversion more evident in Anterior leads Confirmed by David Galicia ([id number]) on 01/18/2020 10:50:45 PM Referred By: REFERRED SELF Confirmed By:David Galicia
[2020-01-19] MEDS: DEXTROSE 5% 1,000 ML IV SCH ×2 (02:17→11:24)
[2020-01-19] MEDS: LEVOTHYROXINE SODIUM 150 MCG TABLET PO SCH (05:41)
[2020-01-19 06:25] LABS: Hematocrit (blood only) 33.7 % (37-47); Mean Corpuscular Hemoglobin 26.7 pg (25-34); Mean Corpuscular Hgb Conc 29.7 g/dL (32-36); Mean Corpuscular Volume 89.9 fL (80-100); Mean Platelet Volume 9.8 fL (7.4-10.4); Platelet Count 575 K/uL (130-400); RDW Coefficient of Variation 16.9 % (11.5-14.5); RDW Standard Deviation 55.3 fL (36.4-46.3); Red Blood Count 3.75 M/uL (4.2-5.4); White Blood Count 12.18 K/uL (4.8-10.8)
[2020-01-19 06:36] LABS: Calcium 8.8 mg/dl (8.5-10.1); Creatinine Clr Calc Pharmacy 41.2 ml/min; Est GFR (African American) 54.9; Est GFR (Non-African American) 47.4; Magnesium 2.5 mg/dl (1.8-2.4); Potassium 3.7 mmol/L (3.5-5.1)
[2020-01-19 06:37] LABS: Phosphorus 2.6 mg/dl (2.5-4.9)
--- NOTE | 2020-01-19 07:17 | CT Scan Report ---
CT OF THE ABDOMEN AND PELVIS WITHOUT CONTRAST CLINICAL HISTORY: liver mass, r/o cancer, obstruction COMPARISON STUDY: KUB February 14, 2013. TECHNIQUE: Axial images of the abdomen and pelvis were obtained without IV contrast. Images were revi ewed in the axial, sagittal, and coronal planes. Automated exposure control was utilized for the yashira dy. A dose lowering technique was utilized adhering to the principles of ALARA. FINDINGS: Imaged portions of the lower chest demonstrate innumerable small pulmonary nodules. No pneu matosis, free air or portal venous gas is present. Evaluation of the abdomen and pelvis is difficult given lack of contrast and paucity of intra-abdominal fat. Numerous bilobar hepatic lesions are noted . These measure up to approximately 4.3 cm. There is no biliary or pancreatic ductal dilatation. Unen hanced images of the spleen, adrenal glands and pancreas are unremarkable although the pancreas is pa rtially obscured. A 1.9 cm hyperdense lesion within the midpole of the right kidney is suboptimally a ssessed on this unenhanced exam but favors a hyperdense cyst. There are suspected punctate bilateral renal calculi. There is no hydronephrosis. There is a large amount stool within the colon and rectum. The sigmoid colon is distended. There is no evidence for a bowel obstruction. No volvulus is noted. Sensitivity for detection of mucosal lesions within the bowel is diminished on this exam. There is eq uivocal wall thickening within the cecum/proximal descending colon on axial image 235 of 471. Note is made of a hypodense 2.2 x 1.2 cm nodule within the right lower quadrant, adjacent to the cecum. No s uspicious osseous lesions are noted. IMPRESSION: 1. Numerous bilobar hepatic lesions consistent with metastatic disease. 2. Difficult study to interpret given lack of contrast and positive intra-abdominal fat. Large amount stool within the colon and rectum with colonic distention but no evidence for a bowel obstruction or volvulus. 3. Equivocal wall thickening within the cecum/proximal descending colon. This is suboptimally assesse d on this exam and could be due to underdistention however colonic adenocarcinoma cannot be excluded. Adjacent 2.2 x 1.2 cm hypodense nodule which could reflect a enlarged lymph node or implant. This fi nding will be called/faxed to the ordering provider at time of dictation. 4. Innumerable indeterminate pulmonary nodules within the lung bases. Metastatic disease is within th e differential. ACT 112: Negative or not required by law. Electronically signed by: Jalen Hernandez M.D. 01/19/2020 7:16 AM
[2020-01-19] MEDS: CEFEPIME 2,000 MG in SYRINGE 7.5 ML IV SCH ×2 (08:48→20:41)
[2020-01-19] MEDS: LORATADINE 10 MG TAB PO SCH (08:48)
[2020-01-19] MEDS: MULTIVITAMIN TAB PO SCH (08:49)
[2020-01-19] MEDS: FLUTICASONE PROPIONATE NA SPR 16 GM BTL NAE SCH ×2 (08:49→20:42)
[2020-01-19] MEDS: DOCUSATE SODIUM/SENNA 50/8.6MG TAB PO SCH ×2 (08:49→20:41)
[2020-01-19] MEDS: SERTRALINE HCL 50 MG TABLET PO SCH (08:49)
[2020-01-19] MEDS: AMANTADINE HCL 100 MG CAPSULE PO SCH (08:49)
[2020-01-19] MEDS: POLYETHYLENE (MIRALAX) 17 GM PACK PO SCH (08:50)
--- NOTE | 2020-01-19 12:18 | Gastrointestinal Consultation ---
Date of Consultation January 19, 2020 Assessment & Plan (1) Acute hypernatremia: (2) Weakness: (3) Intellectual disability: (4) Liver masses: (5) Abnormality of colon: (6) Lung nodules: Pt is a 54 y/o female [facility] resident w mental disability who presented w lethargy and hypernatremia. Labs also notable for leukocytosis, anemia. Per caregiver pt had been losing weight. On eval, she had several lung nodules, liver masses and thickening of cecum/descending colon w possible lymphadenopathy vs implant on RLQ area. Overall picture suspicious for metastatic disease. Pulmonary infectious workup negative so far except pending TB test. I spoke at length w pt's RN sister Alicia about pt's goal of care. Alicia and brother (Dmitry) who is a school psychologist would at least like to get a more definitive diagnosis via tissue bx before deciding on final goals of care. Currently at this time we are awaiting TB test to be finalized. After TB is ruled out, perhaps we can proceed w US/CT guided liver bx by Radiology while obtaining tumor markers (AFP, CEA). This would be easier than performing colonoscopy as pt needs to receive bowel prep prior, and concerns w risks involved w use of anesthesia and possible complications during the colonoscopy procedure itself including bowel perforation, bleeding. Supervising Physician Co-Signing Physician Notes Late entry: I have seen and examined the patient with SHELLY Srinivasan whose note reflects our findings and plan. History of Present Illness Reason for Consultation: Liver masses Requesting Physician: Dr. Dmitry Peterson Attending Physician: Dr. Samra Davalos History of Present Illness Pt is a 54 y/o female resident of [facility], w hx of mental disability who was brought to hospital for lethargy and caregivers also noted pt has been losing weight over last few months. Pt unable to provide hx, this was obtained from chart review and from sister Alicia (RN in [facility]). Labs notable for elevated WBC 12, low H/H 10/33 (normal blood ct as of 06/2019), hypernatremia (Na 157), BUN/Cr up from baseline Cr 1.4. She had CXR initially which showed diffuse bilateral micronodularity in lungs. This was further worked up with CT head/chest/abd/pelvis which showed confirmed the lung nodules w central cavitation, multiple liver masses largest 5cm in R liver, 3cm L liver, equivocal thickening of cecum/descending colon area, adjacent 2x2 cm implant/lymph node RLQ area. Infectious pulmonary workup negative except pending TB test. Family hx pertinent for pancreatic ca in father, colon ca in uncle Attempted colonoscopy in 2015 - unable to completed due to poor prep Allergies Allergy/AdvReac Type Severity Reaction Status Date / Time benztropine Allergy Mild Unknown Verified 01/18/20 12:02 pseudoephedrine Allergy Mild Unknown Verified 01/18/20 12:02 Home Medications Home Medications Medication Instructions Recorded Confirmed Type Natural Vegetable Powder 1 dose PO QAM 09/13/18 01/18/20 History alendronate [Fosamax] 70 mg PO TU 09/13/18 01/18/20 History amantadine HCl 100 mg PO QAM 09/13/18 01/18/20 History buspirone 10 mg PO TID 09/13/18 01/18/20 History fluticasone propionate [Flonase 1 spray INTRANASAL BID 09/13/18 01/18/20 History Allergy Relief] levothyroxine [Synthroid] 150 mcg PO QAM 09/13/18 01/18/20 History lisinopril [Zestril] 2.5 mg PO QAM 09/13/18 01/18/20 History loratadine 10 mg PO QAM 09/13/18 01/18/20 History melatonin 2 mg PO HS 09/13/18 01/18/20 History multivitamin 1 tab PO QAM 09/13/18 01/18/20 History polyethylene glycol 3350 1 dose PO QAM 09/13/18 01/18/20 History risperidone [Risperdal] 2 mg PO 09/13/18 01/18/20 History sertraline [Zoloft] 25 mg PO QAM 09/13/18 01/18/20 History simvastatin [Zocor] 20 mg PO HS 09/13/18 01/18/20 History trazodone 400 mg PO 09/13/18 01/18/20 History bisacodyl 10 mg [place] DIRECTED PRN 11/15/19 01/18/20 History calcium carbonate [Calcium 600] 1,200 mg PO QAM 11/15/19 01/18/20 History sennosides-docusate sodium 1 tab PO BID 11/15/19 01/18/20 History [Senexon-S] Patient History Medical History Cellulitis of foot, left (Resolved) CKD (chronic kidney disease), stage III Baseline Cr: ~1.0 Concussion (Resolved) Diabetes insipidus (Chronic 02/14/13) HTN (hypertension) Hypothyroidism Intellectual disability Mental retardation (Chronic 02/14/13) Movement disorder Nasal bone fracture Osteoporosis Surgical History History of appendectomy History of hysterectomy Family History Father Pancreatic cancer Hypertension Diabetes Mother FH: arrhythmia Social History Preferred Language: Azeri Communication Ability: Unable Type Disk Quality Control Supervisor Required: No Beliefs That Will Affect Care: None marital status: Single Current Living Situation: Other Current Living Situation Comment: [facility] [phone] Feels Safe at Home: Yes Safety Concerns: Feels Safe At This Time Smoking Status: Never smoker Second Hand Exposure: No ; Hx Alcohol Use: No Hx Substance Use: No Review of Systems Review of Systems: Unobtainable due to cognitive status Physical Exam Constitutional: + thin, well groomed, cooperative and comfortable Eyes: PERRL, conjunctivae normal, anicteric sclerae ENMT: external ear and nose normal, oropharynx normal Respiratory: normal respiratory effort, lungs clear to auscultation Cardiovascular: RRR, no murmur, no edema Gastrointestinal (Abdomen): normal bowel sounds, soft, nontender, no hepatosplenomegaly Skin: no rashes, warm and dry no jaundice Psychiatric: Orientation: alert non verbalizing, nor following commands Lymphatic: no lymphedema Results & Data ([facility]) Vital Signs (Past 12 Hours) Vital Signs Temp Pulse Pulse Resp BP Pulse Ox 01/19/20 11:17 36.8 C 106 H 20 122/74 93 01/19/20 07:14 103 H 01/19/20 07:10 37.2 C 107 H 20 122/80 94 01/19/20 03:36 37.2 C 103 H 18 116/78 93
--- NOTE | 2020-01-19 12:40 | Pulmonary Consultation ---
Date of Consultation January 19, 2020 Assessment & Plan (1) Lung nodules: 54-year-old female with a past medical history of severe developmental delay, diabetes insipidus, hypertension who presented to the hospital with acute hypernatremia and was discovered to have innumerable lung nodules, liver masses and thickening of the cecum on CTs. I did discuss the benefits and risks of undergoing a bronchoscopy with the patient sister. I suspect that the liver masses and lung nodules are similar underlying pathology. I am most concerned about malignancy in this patient. I have ordered for an AFP. She does appear to have a cecal mass/thickening and liver nodules that appear to be amenable to CT-guided biopsy. I would recommend pursuing CT-guided biopsy prior to us performing a bronchoscopy. None of the lung nodules appear easily reachable from a bronchoscopic perspective. We can certainly do blind biopsies with transbronchial forcep if needed. There is a risk that she may need intubated for the procedure and she might have difficulties with extubation given her underlying mental status. Would recommend the least invasive approach to obtain a diagnosis in this case. Etiologies for the lung nodules may be atypical infection (nocardia, actinomyces versus other such as fungal) versus interstitial lung disease such as sarcoid. I do suspect this more likely of these nodules in her liver and lungs represent a malignancy at this time. Would recommend palliative care input as well. I did certified drug counselor the patient's sister regarding patient's diagnosis and treatment plan and she expressed understanding. Greater than 50% of the time was spent [id number] with the patient counseling them on their diagnosis and treatment plan. This note was dictated using voice recognition software and may include grammatical errors, extra words, word substitutions and other inaccuracies due to errors in the voice recognition software and differences in speech patterns. (2) Abnormality of colon: (3) Liver masses: (4) Acute hypernatremia: (5) Weakness: (6) Altered mental status: Altered mental status type: somnolence Qualified Code(s): R40.0 - Somnolence History of Present Illness Reason for Consultation: Innumerable pulmonary nodules Requesting Physician: Dr. Dmitry Peterson Attending Physician: Dmitry Peterson MD History of Present Illness 54-year-old female with a history of severe developmental delay who has resided in a fpc since the age of 10 presented to the hospital yesterday with increasing lethargy and inability to stand. The patient is unable to give me any history. I am able to obtain some of the history from the patient's sister who is at the bedside. She indicates that the patient has been falling several times over the past year. She has had a general state of decline over the past 1 year and has needed significant support in order to be able to transition from a bed to a chair. She is able to speak very short phrases and often does not make much sense. She does note that normally when she is at the hospital she is screaming and much more active. Now she has been much more somnolent and sleeping frequently. On the facility did indicate that she lost approximately 10 to 20 pounds over the past year. The sister also notes that the patient seems to be thinner than usual. There have been no apparent fevers, chills, night sweats. No sick contacts. COVID testing on arrival was negative. No known COVID contacts in the facility. No recent travel or exposures to patients or people with tuberculosis. No pet exposure. The patient has essentially been in quarantine for the past 3 months in the [facility] facility. Pulmonary medicine was consulted due to innumerable nodules found on the CT of her chest. She had a chest x-ray on June 2019 which did not demonstrate any significant abnormalities. This is the last chest imaging I can see in the record. Gastroenterology was also consulted due to the patient's liver masses that were discovered on the CT of her abdomen and thickening noted in her cecum. Currently, they are recommending a CT-guided biopsy of the liver and obtaining tumor markers. They also feel that a colonoscopy would be difficult given the patient's underlying medical issues and her sedated state. I did go over the risks and benefits of a bronchoscopy with the patient's sister as well. I indicated to her that generally this is a well-tolerated procedure, but however due to her underlying mental health issues and due to her sedation, there is a risk that she might need to be intubated for the procedure. Allergies Allergy/AdvReac Type Severity Reaction Status Date / Time benztropine Allergy Mild Unknown Verified 01/18/20 12:02 pseudoephedrine Allergy Mild Unknown Verified 01/18/20 12:02 Home Medications Home Medications Medication Instructions Recorded Confirmed Type Natural Vegetable Powder 1 dose PO QAM 09/13/18 01/18/20 History alendronate [Fosamax] 70 mg PO TU 09/13/18 01/18/20 History amantadine HCl 100 mg PO QAM 09/13/18 01/18/20 History buspirone 10 mg PO TID 09/13/18 01/18/20 History fluticasone propionate [Flonase 1 spray INTRANASAL BID 09/13/18 01/18/20 History Allergy Relief] levothyroxine [Synthroid] 150 mcg PO QAM 09/13/18 01/18/20 History lisinopril [Zestril] 2.5 mg PO QAM 09/13/18 01/18/20 History loratadine 10 mg PO QAM 09/13/18 01/18/20 History melatonin 2 mg PO HS 09/13/18 01/18/20 History multivitamin 1 tab PO QAM 09/13/18 01/18/20 History polyethylene glycol 3350 1 dose PO QAM 09/13/18 01/18/20 History risperidone [Risperdal] 2 mg PO HS 09/13/18 01/18/20 History sertraline [Zoloft] 25 mg PO QAM 09/13/18 01/18/20 History simvastatin [Zocor] 20 mg PO HS 09/13/18 01/18/20 History trazodone 400 mg PO HS 09/13/18 01/18/20 History bisacodyl 10 mg NC DIRECTED PRN 11/15/19 01/18/20 History calcium carbonate [Calcium 600] 1,200 mg PO QAM 11/15/19 01/18/20 History sennosides-docusate sodium 1 tab PO BID 11/15/19 01/18/20 History [Senexon-S] Patient History Medical History Cellulitis of foot, left (Resolved) CKD (chronic kidney disease), stage III Baseline Cr: ~1.0 Concussion (Resolved) Diabetes insipidus (Chronic 02/14/13) HTN (hypertension) Hypothyroidism Intellectual disability Mental retardation (Chronic 02/14/13) Movement disorder Nasal bone fracture Osteoporosis Surgical History History of appendectomy History of hysterectomy Family History Father Pancreatic cancer Hypertension Diabetes Mother FH: arrhythmia Social History Preferred Language: Chadian Communication Ability: Unable Financial Planning Analyst Required: No Beliefs That Will Affect Care: None Current Living Situation: Other Current Living Situation Comment: [facility] [phone] Feels Safe at Home: Yes Safety Concerns: Feels Safe At This Time Smoking Status: Never smoker Second Hand Exposure: No ; Hx Alcohol Use: No Hx Substance Use: No Review of Systems Review of Systems: Unobtainable due to mental health condition Physical Exam Constitutional: Patient is very frail and sickly appearing. She appears much older than her stated age. She is lying in bed. Moving her eyes and head back and forth frequently. Eyes: PERRL, conjunctivae normal, anicteric sclerae ENMT: external ear and nose normal, oropharynx normal Neck: normal visual inspection Respiratory: Mild rhonchi noted on the anterior chest. Cardiovascular: RRR, no murmur, no edema Gastrointestinal (Abdomen): Inspection/Auscultation: abdomen not distended Percussion/Palpation: abdomen nontender Musculoskeletal: no cyanosis or clubbing, extremities motor strength 5/5 Skin: no rashes, warm and dry Neurologic: Difficult to assess given her underlying mental issues. She did appear to have some nystagmus. Psychiatric: Orientation: + not oriented x 3 Results & Data Results & Data ([facility]) Vital Signs (Past 12 Hours) Vital Signs Temp Pulse Pulse Resp BP Pulse Ox 01/19/20 11:17 98.2 F 106 H 20 122/74 93 01/19/20 07:14 103 H 01/19/20 07:10 99.0 F 107 H 20 122/80 94 01/19/20 03:36 99.0 F 103 H 18 116/78 93 I personally reviewed her labs, chest imaging and previous notes. PG Care Time/CCT Total # of Minutes Spent Total Time Spent with Patient: Total time spent is greater than 50% in coordination of care (as documented) at patient's floor/unit and/or counseling patient: Coding Level of Care Code 76855 Inpt Consult Level 4 Diagnoses Lung nodules R91.8 Abnormality of colon K63.9 Liver masses R16.0 Acute hypernatremia E87.0 Weakness R53.1 Altered mental status R40.0 Altered mental status type: somnolence
--- NOTE | 2020-01-19 14:08 | Consultation Report ---
DATE OF CONSULTATION: 01/19/2020 NEPHROLOGY CONSULTATION NOTE REASON FOR CONSULT: Hypernatremia. HISTORY OF PRESENT ILLNESS: The patient is a 54-year-old female with severe intellectual disability, movement disorder and resident of longterm long-term. The patient was sent over from the longterm because of weight loss for the last few months as well as increased weakness and poor appetite with both food and drinks. In the Emergency Department, she was found to have a serum sodium of 157. She got about 500 mL of normal saline in the Emergency, and after that, D5 water was started at 100 mL per hour, which she is still getting. Urine finding was also suggestive of UTI, for which she is getting treatment. At this time, she is also being worked for cancer versus tuberculosis. The patient is nonverbal for me and history was obtained from her sister and one of the caregivers. CT scan of the chest shows multiple nodules. The patient is incontinent, so I do not know the exact urine output. There is also mention of diabetes insipidus in the H and P; however, she was not on desmopressin as an outpatient according to the medication list and as per her sister. I do not know whether the patient has chronic polyuria or not as she is incontinent, but according to her sister, she is always drinking lots and lots of water constantly. ALLERGIES: Reviewed and are as per the H and P. HOME MEDICATIONS: List was reviewed in detail and is as per the H and P. PAST MEDICAL AND SURGICAL HISTORY: History of cellulitis. Chronic kidney disease stage III, baseline creatinine about 1. history of diabetes insipidus in 2013 and it is unclear whether she has chronic diabetes insipidus or not. Hypertension, hypothyroidism, severe intellectual disability, movement disorder, osteoporosis, appendicectomy, hysterectomy. FAMILY HISTORY: Negative for renal disease or dialysis. SOCIAL HISTORY: Long-term resident of the [facility]. No smoking, no alcohol. REVIEW OF SYSTEMS: Unable to obtain from the patient. Some basic review of systems was obtained from the sister. PHYSICAL EXAMINATION: GENERAL: The patient is nonverbal, had her eyes closed and did not answer my question. HEENT: Normocephalic, atraumatic. Mucous membrane appears dry. NECK: Supple. LUNGS: Bilaterally decreased breath sounds, but barely any inspiratory effort. CARDIOVASCULAR: S1 and S2 regular. ABDOMEN: Soft, nontender. EXTREMITIES: No edema. NEUROLOGIC: Eyes closed, nonverbal, did not follow my command. LABORATORY TESTS: Reviewed in detail. Most recent labs show WBC count 12,000, hemoglobin 10, platelet count 575. Sodium 153, potassium 3.7, chloride 121, BUN 26, creatinine is 1.28 and it is trending down from 1.5 on admission, magnesium 2.5. IMAGING: Reviewed in detail. ASSESSMENT AND PLAN: A 54-year-old female with severe intellectual disability, now presenting with urinary tract infection and hypernatremia. Hypernatremia: This is by definition free water deficit and needs to be treated with free water. She is getting D5 water at 100 mL per hour, which would be plenty of free water. Check BMP twice daily. Sometimes it takes many days for the serum sodium to normalize, so we do have to be patient. One confusing thing is this mention of diabetes insipidus in her past medical history from 2012, but it does not appear she had clearcut polyuria, which by definition is needed to call someone as diabetes insipidus. Also, she was not on desmopressin, which is usually the medication that we use for diabetes insipidus. Either way, the management is not different. At this time, I will continue with the D5 water for at least couple of days. If the sodium does not come down, we may consider adding desmopressin at that time. It is very important to know the exact urine output in a 24-hour time period to label someone as diabetes insipidus, but she is incontinent and I do not want to put a Baugh catheter just to know the amount of urine output. Thank you very much. I will continue to follow.
[2020-01-19 14:49] LABS: BUN Creatinine Ratio 17.1 (10-20); Calcium 9.3 mg/dl (8.5-10.1); Creatinine Clr Calc Pharmacy 39.7 ml/min; Est GFR (African American) 52.4; Est GFR (Non-African American) 45.2; Potassium 3.4 mmol/L (3.5-5.1)
[2020-01-19] MEDS: TRAZODONE HCL 100 MG TAB PO SCH (20:41)
[2020-01-19] MEDS: SIMVASTATIN 20 MG TAB PO SCH (20:41)
[2020-01-19] MEDS: risperiDONE 2 MG TABLET PO SCH (20:42)
[2020-01-19 22:18] LABS: BUN Creatinine Ratio 18.1 (10-20); Calcium 9.3 mg/dl (8.5-10.1); Creatinine Clr Calc Pharmacy 42.9 ml/min; Est GFR (African American) 57.6; Est GFR (Non-African American) 49.7; Potassium 3.7 mmol/L (3.5-5.1)
--- NOTE | 2020-01-20 04:05 | Hospitalist Progress Note ---
Date of Service January 20, 2020 Assessment & Plan (1) Hypernatremia: Serum sodium 157 at time of admission. History of diabetes insipidus years ago, details of evaluation not available. Unable to ascertain urine output; Baugh catheter would probably not be tolerated. Receiving free water with IV D5W. Na down to 153 by this morning and 147 by this afternoon. Avoid overly rapid correction- hold D5W and follow. Nephrology consulted. (2) Acute kidney injury superimposed on CKD: History of CKD with baseline creatinine around 1. Serum creatinine 1.5 at time of admission. Receiving IV fluids. Creatinine today = 1.28. Follow. (3) Altered mental status: Noted to be more somnolent than baseline. No acute findings on CT of head. Probable metabolic encephalopathy secondary to hypernatremia. (4) Abnormal urinalysis: UA showed nitrites, leukocyte esterase, WBC's, epithelial cells, bacteria. Afebrile. WBC 12,880. Unable to ascertain whether or not pt has urinary symptoms. Receiving cefepime. Urine C&S pending. (5) Lung nodules: Multiple pulmonary nodules noted on CT of chest. Measuring up to 6 mm, some cavitary. Placed in airborne precautions. QuantiFERON pending. Unlikely that adequate sputum can be obtained for AFB. Pulmonary Medicine consulted. Findings worrisome for metastatic disease. (6) Liver masses: Multiple liver lesions noted on CT imaging, worrisome for metastatic disease. Possible thickening of colon noted. GI consulted. Diagnostic strategy to be determined after further discussion with family and consultants. (7) Hypothyroidism: Continue levothyroxine. (8) DVT prophylaxis: SCD's. (9) Discharge planning issues: Discharge plan to be determined. Family Medicine follow-up with Dr. Romero. Sister Alicia is a nurse and was visiting at bedside. Brother Dmitry is a physician and was given update by phone. They share guardianship + POA. Admission and Anticipated Discharge Date Admission Date: January 18, 2020 Subjective Recheck for multiple problems. Patient seen in their room around 1530. Sister Alicia visiting. No apparent new problems today. Pt seems to be near her baseline. Reported weight loss of about 20 lbs. Several falls over past year. Review of Systems: Pt unable to respond to queries due to severe cognitive disability. Physical Exam Constitutional: no acute distress Eyes: + anicteric sclerae Respiratory: no respiratory distress Auscultation: lungs clear to auscultation bilaterally Cardiovascular: Rate/Rhythm: regular rate and regular rhythm Vessels: no JVD Extremities: no calf tenderness and no edema Gastrointestinal (Abdomen): normal bowel sounds, soft, nontender, no hepatosplenomegaly Skin: no rashes, warm and dry Neurologic: minimally verbal Psychiatric: Orientation: alert Results & Data Results & Data ([facility]) Vital Signs (Past 12 Hours) Vital Signs Temp Pulse Pulse Resp BP Pulse Ox 01/19/20 23:00 37.3 C 94 H 97 H 18 103/68 90 01/19/20 18:58 37.2 C 103 H 20 114/77 90 Laboratory Results Laboratory Results - last 24 hr 01/19/20 01/19/20 01/19/20 02:20 05:51 05:51 WBC 12.18 H RBC 3.75 L Hgb 10.0 L Hct 33.7 L MCV 89.9 MCH 26.7 MCHC 29.7 L RDW Std Deviation 55.3 H RDW Coeff of Ramona 16.9 H Plt Count 575 H MPV 9.8 Sodium 153 H Potassium 3.7 Chloride 121 H Carbon Dioxide 28 Anion Gap 4.0 BUN 26 H Creatinine 1.28 H Est Cr Clr Drug Dosing 41.2 Est GFR ( Amer) 54.9 Est GFR (Non-Af Amer) 47.4 BUN/Creatinine Ratio 20.0 Glucose 119 H Calcium 8.8 Phosphorus 2.6 Magnesium 2.5 H Tumor Marker AFP Nasal Screen MRSA (PCR) Negative 01/19/20 01/19/20 01/19/20 13:54 13:54 21:48 WBC RBC Hgb Hct MCV MCH MCHC RDW Std Deviation RDW Coeff of Ramona Plt Count MPV Sodium 147 H 150 H Potassium 3.4 L 3.7 Chloride 115 H 116 H Carbon Dioxide 25 28 Anion Gap 7.0 6.0 BUN 23 H 22 H Creatinine 1.33 H 1.23 H Est Cr Clr Drug Dosing 39.7 42.9 Est GFR ( Amer) 52.4 57.6 Est GFR (Non-Af Amer) 45.2 49.7 BUN/Creatinine Ratio 17.1 18.1 Glucose 184 H 125 H Calcium 9.3 9.3 Phosphorus Magnesium Tumor Marker AFP Pending Nasal Screen MRSA (PCR) (1) Altered mental status Altered mental status type: somnolence Qualified Code(s): R40.0 - Somnolence
[2020-01-20] MEDS: DEXTROSE 5% 1,000 ML IV SCH (04:27)
[2020-01-20] MEDS: LEVOTHYROXINE SODIUM 150 MCG TABLET PO SCH (04:28)
[2020-01-20 07:06] LABS: BUN Creatinine Ratio 17.1 (10-20); Calcium 9.2 mg/dl (8.5-10.1); Creatinine Clr Calc Pharmacy 42.8 ml/min; Est GFR (Non-African American) 49.2; Potassium 3.6 mmol/L (3.5-5.1)
[2020-01-20] MEDS ORDERED: DEXTROSE 5% 1,000 ML IV SCH (07:15)
[2020-01-20] MEDS: AMANTADINE HCL 100 MG CAPSULE PO SCH (07:57)
[2020-01-20] MEDS: SERTRALINE HCL 50 MG TABLET PO SCH (07:57)
[2020-01-20] MEDS: LORATADINE 10 MG TAB PO SCH (07:57)
[2020-01-20] MEDS: MULTIVITAMIN TAB PO SCH (07:57)
[2020-01-20] MEDS: POLYETHYLENE (MIRALAX) 17 GM PACK PO SCH (07:57)
[2020-01-20] MEDS: FLUTICASONE PROPIONATE NA SPR 16 GM BTL NAE SCH ×2 (07:58→20:06)
[2020-01-20] MEDS: DOCUSATE SODIUM/SENNA 50/8.6MG TAB PO SCH ×2 (07:58→20:06)
[2020-01-20] MEDS: CEFEPIME 2,000 MG in SYRINGE 7.5 ML IV SCH (08:07)
--- NOTE | 2020-01-20 10:04 | Communication Note ---
Date of Service: January 20, 2020 GI note: Pt seen up in chair, getting fed CL diet. With several prompts by sister manage to say few months, and follow very simple commands. Pt doesn't josh er to be in distress. I spoke with sister (Alicia) to clarify again goals of care for pt. Alicia and brother Dmitry still would like to proceed with tissue diagnosis to make a final decision on pt's care. I reviewed pt's CT scan results w Alicia, pointing out that there are multiple liver masses that would be able to be biopsied via CT guided. I have confirmed this with Radiology (Dr. Jalen Hernandez) as well. Though pt would likely need a sedative such as Ativan during the procedure. As far as a colonoscopy, I think this would not only be a difficult procedure for pt to prep for, and also would give low yield as the cecal/descending colon thickening is equivocal and nonspecific. Thus would not recommend this. Alicia agrees CT guided liver biopsy would be a good option for tissue diagnosis. She is aware we're currently awaiting TB to be ruled out prior to proceeding with further tests. GI will follow peripherally at this time; pls recall us prn
--- NOTE | 2020-01-20 11:18 | Progress Notes ---
DATE: 01/20/2020 SUBJECTIVE: Overnight, no new issues. The patient's sodium overall is trending down. She seems more interactive today as she has been able to eat and drink with help. She is making a good bit of urine, but not exactly at the polyuric level. She is incontinent. VITAL SIGNS: Blood pressure 114/74, pulse 106 per minute, temperature 36.8 degrees Celsius, 92% on room air. HEENT: Mucous membranes moist. NECK: Supple. CHEST: Bilateral decreased breath sounds, poor inspiratory effort. CARDIOVASCULAR: S1, S2 regular. ABDOMEN: Soft, nontender. EXTREMITIES: Shows no edema. LABORATORY TESTS: From this morning shows sodium 152, chloride 119, BUN 21, creatinine 1.24, glucose 105. WBC count 12,000, hemoglobin 10, platelet count 575. ASSESSMENT AND PLAN: A 54-year-old female with hyponatremia secondary to poor oral intake. She is a resident of a long-term of [facility]pc secondary to severe intellectual disability. 1. Hyponatremia. Sodium overall is trending down. We will go further with the continued use of D5 water. She has also been drinking more today so it should help. At this time, we can do labs every 12 hours. No further workup is needed. I do not think she has diabetes insipidus.
[2020-01-20 13:45] LABS: Quantiferon Mitogen-NIL 2.99 IU/mL; Quantiferon NIL 0.02 IU/mL; Quantiferon TB Gold Plus NEGATIVE (NEGATIVE)
[2020-01-20 16:43] LABS: BUN Creatinine Ratio 18.5 (10-20); Calcium 8.4 mg/dl (8.5-10.1); Creatinine Clr Calc Pharmacy 46.2 ml/min; Est GFR (African American) 62.5; Est GFR (Non-African American) 53.9; Potassium 3.9 mmol/L (3.5-5.1)
[2020-01-20] MEDS: risperiDONE 2 MG TABLET PO SCH (20:06)
[2020-01-20] MEDS: SIMVASTATIN 20 MG TAB PO SCH (20:06)
[2020-01-20] MEDS: TRAZODONE HCL 100 MG TAB PO SCH (20:06)
--- NOTE | 2020-01-20 23:07 | Hospitalist Progress Note ---
Date of Service January 20, 2020 Assessment & Plan (1) Hypernatremia: Serum sodium 157 at time of admission. Nephrology consulted. History of diabetes insipidus years ago, details of evaluation not available. Unable to ascertain urine output; Baugh catheter would probably not be tolerated. Received free water with IV D5W. Sodium down to 142 this afternoon. Continue to follow. Encourage PO fluid intake. (2) Acute kidney injury superimposed on CKD: History of CKD with baseline creatinine around 1. Serum creatinine 1.5 at time of admission. Receiving IV fluids. Creatinine today = 1.24, 1.15. Follow. (3) Altered mental status: Noted to be more somnolent than baseline. No acute findings on CT of head. Probable metabolic encephalopathy secondary to hypernatremia. Improrved. (4) Abnormal urinalysis: UA showed nitrites, leukocyte esterase, WBC's, epithelial cells, bacteria. Afebrile. WBC 12,880. Unable to ascertain whether or not pt has urinary symptoms. Received cefepime. Urine C&S pinpoint growth, final report pending. (5) Lung nodules: Multiple pulmonary nodules noted on CT of chest. Measuring up to 6 mm, some cavitary. Placed in airborne precautions. QuantiFERON negative. Unlikely that adequate sputum can be obtained for AFB. Pulmonary Medicine consulted. No known exposure to TB. Findings worrisome for metastatic disease. Airborne precautions discontinued. (6) Liver masses: Multiple liver lesions noted on CT imaging, worrisome for metastatic disease. Possible thickening of colon noted as well as possible enlarged lymph node / implant. GI consulted. Diagnostic strategy discussed with family and consultants. Family would like to have a definite diagnosis to assist with further decision making. Colonoscopy would be difficult. Yield of lung biopsy by bronch would be low. Will discuss CT or US guided biopsy with Radiology, ideally with Anesthesiology providing sedation to optimize comfort and safety. (7) Hypothyroidism: Continue levothyroxine. (8) DVT prophylaxis: SCD's. (9) Discharge planning issues: Discharge plan to be determined. Family Medicine follow-up with Dr. Romero. Sister Alicia is a nurse and was visiting at bedside. Brother Dmitry is a physician and was given update by phone this evening. Admission and Anticipated Discharge Date Admission Date: January 18, 2020 Subjective Recheck for multiple problems. Patient seen in their room around 1110. Sister Alicia at bedside. Out of bed to chair. More alert. Good PO intake with assistance. Review of Systems: Pt unable to respond to queries due to severe cognitive disability. Physical Exam Constitutional: no acute distress Eyes: + anicteric sclerae Respiratory: no respiratory distress Auscultation: lungs clear to auscultation bilaterally Cardiovascular: Rate/Rhythm: regular rate and regular rhythm Vessels: no JVD Extremities: no calf tenderness and no edema Gastrointestinal (Abdomen): normal bowel sounds, soft, nontender, no hepatosplenomegaly Skin: no rashes, warm and dry Psychiatric: Orientation: alert Results & Data Results & Data ([facility]) Vital Signs (Past 12 Hours) Vital Signs Temp Pulse Pulse Resp BP BP Pulse Ox 01/20/20 19:07 37.1 C 112 H 20 121/76 94 01/20/20 17:23 84 01/20/20 15:31 37.4 C 89 18 104/68 94 01/20/20 12:12 37.1 C 101 H 18 109/77 92 Laboratory Results Laboratory Results - last 24 hr 01/18/20 01/20/20 01/20/20 13:36 05:55 16:15 Sodium 152 H 142 D Potassium 3.6 3.9 Chloride 119 H 109 H Carbon Dioxide 27 27 Anion Gap 6.0 6.0 BUN 21 H 21 H Creatinine 1.24 H 1.15 Est Cr Clr Drug Dosing 42.8 46.2 Est GFR ( Amer) 57.0 62.5 Est GFR (Non-Af Amer) 49.2 53.9 BUN/Creatinine Ratio 17.1 18.5 Glucose 105 H 130 H Calcium 9.2 8.4 L TB Test (QFT) Gold Plus NEGATIVE TB Test (QFT) Nil 0.02 TB Test Mitogen - Nil 2.99 TB Test Ag - Nil 1 0.00 TB Test Ag - Nil 2 0.00 (1) Altered mental status Altered mental status type: somnolence Qualified Code(s): R40.0 - Somnolence
[2020-01-21] MEDS: LEVOTHYROXINE SODIUM 150 MCG TABLET PO SCH (05:27)
--- NOTE | 2020-01-21 08:32 | Anesthesiology Consultation ---
Date of Service January 21, 2020 Assessment & Plan (1) Encounter for pre-operative examination: Chart Review Chart Review: Acceptable Risk for Surgery History Height/Weight Height: 5 ft 8 in Weight: 53 kg Allergies Allergy/AdvReac Type Severity Reaction Status Date / Time benztropine Allergy Mild Unknown Verified 01/18/20 12:02 pseudoephedrine Allergy Mild Unknown Verified 01/18/20 12:02 Medications Home Medications Medication Instructions Recorded Confirmed Last Taken Natural Vegetable Powder 1 dose PO QA 09/13/18 01/18/20 01/18/20 alendronate [Fosamax] 70 mg PO 09/13/18 01/18/20 01/12/20 amantadine HCl 100 mg PO QA 09/13/18 01/18/20 01/18/20 buspirone 10 mg PO TID 09/13/18 01/18/20 01/18/20 fluticasone propionate [Flonase 1 spray INTRANASAL BID 09/13/18 01/18/20 01/18/20 Allergy Relief] levothyroxine [Synthroid] 150 mcg PO [facility] 09/13/18 01/18/20 01/18/20 lisinopril [Zestril] 2.5 mg PO QA 09/13/18 01/18/20 01/18/20 loratadine 10 mg PO [facility] 09/13/18 01/18/20 01/18/20 melatonin 2 mg PO 09/13/18 01/18/20 01/17/20 multivitamin 1 tab PO QA 09/13/18 01/18/20 01/18/20 polyethylene glycol 3350 1 dose PO [facility] 09/13/18 01/18/20 01/18/20 risperidone [Risperdal] 2 mg PO 09/13/18 01/18/20 01/17/20 sertraline [Zoloft] 25 mg PO QA 09/13/18 01/18/20 01/18/20 simvastatin [Zocor] 20 mg PO 09/13/18 01/18/20 01/17/20 trazodone 400 mg PO 09/13/18 01/18/20 01/17/20 bisacodyl 10 mg [place] DIRECTED PRN 11/15/19 01/18/20 Unknown calcium carbonate [Calcium 600] 1,200 mg PO QAM 11/15/19 01/18/20 01/18/20 sennosides-docusate sodium 1 tab PO BID 11/15/19 01/18/20 01/18/20 [Senexon-S] Active Medications Generic Name Dose Route Start Last Admin Trade Name Freq PRN Reason Stop Dose Admin Amantadine HCl 100 mg 01/19/20 09:00 01/20/20 07:57 Symmetrel PO 02/18/20 08:59 100 mg QAM SOPHIA Administration Buspirone HCl 10 mg 01/18/20 21:00 01/20/20 20:06 Buspar PO 02/17/20 20:59 10 mg TID SOPHIA Administration Fluticasone Propionate 1 sprays 01/18/20 21:00 01/20/20 20:06 Flonase ZOYA 02/17/20 20:59 1 sprays BID SOPHIA Administration Levothyroxine Sodium 150 mcg 01/19/20 06:30 01/21/20 05:27 Synthroid PO 02/18/20 06:29 Not Given DAILYBB SOPHIA Loratadine 10 mg 01/19/20 09:00 01/20/20 07:57 Claritin PO 02/18/20 08:59 10 mg QAM SOPHIA Administration Melatonin 3 mg 01/18/20 17:07 01/18/20 22:36 Melatonin PO 02/17/20 17:06 3 mg HSZ PRN Administration Sleep Multivitamins 1 tab 01/19/20 09:00 01/20/20 07:57 Multivitamin Tab PO 02/18/20 08:59 1 tab QAM SOPHIA Administration Polyethylene Glycol 17 gm 01/19/20 09:00 01/20/20 07:57 Miralax Powder Packet PO 02/18/20 08:59 17 gm QAM SOPHIA Administration Risperidone 2 mg 01/18/20 21:00 01/20/20 20:06 Risperdal PO 02/17/20 20:59 2 mg HS SOPHIA Administration Senna/Docusate Sodium 1 tab 01/18/20 21:00 01/20/20 20:06 Senokot S PO 02/17/20 20:59 1 tab BID SOPHIA Administration Sertraline HCl 25 mg 01/19/20 09:00 01/20/20 07:57 Zoloft PO 02/18/20 08:59 25 mg QAM SOPHIA Administration Simvastatin 20 mg 01/18/20 21:00 01/20/20 20:06 Zocor PO 02/17/20 20:59 20 mg HS SOPHIA Administration Trazodone HCl 400 mg 01/18/20 21:00 01/20/20 20:06 Desyrel PO 02/17/20 20:59 400 mg HS SOPHIA Administration Past Medical History Medical History Cellulitis of foot, left (Resolved) CKD (chronic kidney disease), stage III Baseline Cr: ~1.0 Concussion (Resolved) Diabetes insipidus (Chronic 02/14/13) HTN (hypertension) Hypothyroidism Intellectual disability Mental retardation (Chronic 02/14/13) Movement disorder Nasal bone fracture Osteoporosis Exercise / Class Metabolic Activity IV < 2 Limit ADL/Bedbound Past Family History Family History Father Pancreatic cancer Hypertension Diabetes Mother FH: arrhythmia Past Surgical History Surgical History History of appendectomy History of hysterectomy Social History Smoking Status: Never smoker Hx Alcohol Use: No Hx Substance Use: No substance use type: does not use Physical Exam Vital Signs Last Vital Signs Temp 36.5 C 01/21/20 08:05 Pulse 85 01/21/20 08:05 Resp 20 01/21/20 08:05 BP 96/65 L 01/21/20 08:05 Pulse Ox 93 01/21/20 08:05 Testing Laboratory Results 01/19/20 05:51 Urine Color Yellow 01/18/20 11:30 Urine Appearance Clear (Clear) 01/18/20 11:30 Urine pH 7.0 (4.5-7.5) 01/18/20 11:30 Ur Specific E[place] 1.014 (1.000-1.030) 01/18/20 11:30 Urine Protein Trace (Negative) H 01/18/20 11:30 Urine Glucose (UA) Negative (Negative) 01/18/20 11:30 Urine Ketones Negative (Negative) 01/18/20 11:30 Urine Nitrite Positive (Negative) A 01/18/20 11:30 Ur Leukocyte Esterase 2+ (Negative) H 01/18/20 11:30 Urine WBC (Auto) >30 /hpf (0-5) H 01/18/20 11:30 Urine RBC (Auto) 0-4 /hpf (0-4) 01/18/20 11:30 U Hyaline Cast (Auto) 0 /lpf (0-5) 01/18/20 11:30 U Epithel Cells (Auto) 5-10 /lpf (0-5) H 01/18/20 11:30 Urine Bacteria (Auto) 2+ (Negative) H 01/18/20 11:30 01/18/20 11:10 Aerobic Blood Culture - Preliminary Blood No growth in Aerobic bottle after 48 hours. Anaerobic Blood Culture - Final 01/18/20 11:23 Aerobic Blood Culture - Preliminary Blood No growth in Aerobic bottle after 48 hours. Anaerobic Blood Culture - Preliminary No growth in Anaerobic bottle after 48 hours. 01/18/20 11:30 Urine Culture - Preliminary Urine,Straight Cath Pin-point growth present, reincubating. Electrocardiogram Date: 01/18/20 Findings: + NSR @ (92) and + WA (inferior) Chest X-Ray Date: 01/18/20 Findings: + NAD multiple nodules
--- NOTE | 2020-01-21 08:44 | Hospitalist Progress Note ---
Date of Service January 21, 2020 Assessment & Plan (1) Hypernatremia: Serum sodium 157 at time of admission. Nephrology consulted. History of diabetes insipidus years ago, details of evaluation not available. Unable to ascertain urine output; Baugh catheter would probably not be tolerated. Received free water with IV D5W. Sodium down to 142 by 01/19. Continue to follow. Encourage PO fluid intake. (2) Acute kidney injury superimposed on CKD: History of CKD with baseline creatinine around 1. Serum creatinine 1.5 at time of admission. Receiving IV fluids. Creatinine yesterday = 1.24, 1.15. Follow. (3) Altered mental status: Noted to be more somnolent than baseline at time of admission. No acute findings on CT of head. Probable metabolic encephalopathy secondary to hypernatremia. Improved. (4) Abnormal urinalysis: UA showed nitrites, leukocyte esterase, WBC's, epithelial cells, bacteria. Afebrile. WBC 12,880. Unable to ascertain whether or not pt has urinary symptoms. Received cefepime. Urine C&S pinpoint growth, final report pending. (5) Lung nodules: Multiple pulmonary nodules noted on CT of chest. Measuring up to 6 mm, some cavitary. Placed in airborne precautions. QuantiFERON negative. Unlikely that adequate sputum can be obtained for AFB. Pulmonary Medicine consulted. No known exposure to TB. Findings worrisome for metastatic disease. Airborne precautions discontinued. (6) Liver masses: Multiple liver lesions noted on CT imaging, worrisome for metastatic disease. Possible thickening of colon noted as well as possible enlarged lymph node / implant. GI consulted. Diagnostic strategy discussed with family and consultants. Family would like to have a definite diagnosis to assist with further decision making. Colonoscopy would be difficult. Yield of lung biopsy by bronch would be low. Discussed US-guided biopsy with Radiology and Anesthesiology. (7) Hypothyroidism: Continue levothyroxine. (8) DVT prophylaxis: SCD's. Consider adding anticoagulant after invasive procedures accomplished. (9) Discharge planning issues: Discharge plan to be determined. Family Medicine follow-up with Dr. Romero. Sister Alicia was visiting at bedside. Admission and Anticipated Discharge Date Admission Date: January 18, 2020 Subjective Recheck for multiple problems. Patient seen in their room around 0730. No new problems. Not happy about being NPO. Review of Systems: Pt unable to respond to queries due to severe cognitive disability. Physical Exam Constitutional: no acute distress Eyes: + anicteric sclerae Respiratory: no respiratory distress Auscultation: lungs clear to auscultation bilaterally Cardiovascular: Rate/Rhythm: regular rate and regular rhythm Vessels: no JVD Extremities: no calf tenderness and no edema Chest (Breasts): Additional Comments: no breast masses (sister chaperoned exam) Gastrointestinal (Abdomen): normal bowel sounds, soft, nontender, no hepatosplenomegaly Skin: no rashes, warm and dry Neurologic: resting tremor minimally verbal Psychiatric: Orientation: alert Results & Data Results & Data ([facility]) Vital Signs (Past 12 Hours) Vital Signs Temp Pulse Pulse Resp BP Pulse Ox 01/21/20 08:05 36.5 C 85 20 96/65 L 93 01/21/20 07:29 101 H 01/21/20 04:53 37.3 C 105 H 18 111/72 96 01/21/20 02:47 86 01/20/20 23:12 37.7 C H 87 20 99/65 L 95 Laboratory Results Microbiology 01/18/20 11:10 Blood Aerobic Blood Culture - Preliminary No growth in Aerobic bottle after 48 hours. 01/18/20 11:10 Blood Anaerobic Blood Culture - Final 01/18/20 11:23 Blood Aerobic Blood Culture - Preliminary No growth in Aerobic bottle after 48 hours. 01/18/20 11:23 Blood Anaerobic Blood Culture - Preliminary No growth in Anaerobic bottle after 48 hours. 01/18/20 11:30 Urine,Straight Cath Urine Culture - Preliminary Pin-point growth present, reincubating. (1) Altered mental status Altered mental status type: somnolence Qualified Code(s): R40.0 - Somnolence
[2020-01-21 08:48] LABS: BUN Creatinine Ratio 15.8 (10-20); Calcium 9.5 mg/dl (8.5-10.1); Creatinine Clr Calc Pharmacy 44.5 ml/min; Est GFR (African American) 58.7; Est GFR (Non-African American) 50.7; Magnesium 2.4 mg/dl (1.8-2.4); Potassium 3.8 mmol/L (3.5-5.1)
[2020-01-21] MEDS ORDERED: D5W AND 1/4NSS + 20MEQ KCL 20 MEQ/1,000 ML BAG IV SCH (10:00)
[2020-01-21] MEDS: FLUTICASONE PROPIONATE NA SPR 16 GM BTL NAE SCH ×2 (10:25→20:32)
--- NOTE | 2020-01-21 10:28 | History & Physical Bridge Note ---
Date of Service January 21, 2020 History & Physical Bridge Note I have been consulted to perform a ultrasound guided biopsy of the liver to exclude metastatic disease. I have been informed that the patient cannot follow verbal commands and therefore has to have the procedure conducted in the OR.
[2020-01-21 11:07] LABS: INR 1.1 (0.9-1.1); Prothrombin Time 11.9 Seconds (9.0-12.0)
[2020-01-21] MEDS ORDERED: ATROPINE SULFATE 0.1 MG/ML 10ML SYR IV PRN (11:42)
[2020-01-21] MEDS ORDERED: ePHEDrine sulfate 50 MG/ML AMP IV PRN (11:42)
[2020-01-21] MEDS ORDERED: MIDAZOLAM HCL 1 MG/ML 2ML VIAL ONE (11:43)
[2020-01-21] MEDS ORDERED: fentaNYL citrate 100 MCG/2 ML VIAL ONE (11:51)
[2020-01-21] MEDS ORDERED: PROPOFOL IV EMULSION 10 MG/ML 20 ML VIAL IV ONE (11:55)
[2020-01-21] MEDS ORDERED: ONDANSETRON INJ 2 MG/ML 2 ML VIAL ONE (11:55)
--- NOTE | 2020-01-21 13:12 | Anesthesiology Progress Note ---
Date of Service January 21, 2020 Anesthesia Post Procedure Vital Signs Vital Signs: Temp Pulse Pulse Resp BP BP Pulse Ox 01/21/20 12:59 36.9 C 115 H 18 123/77 95 01/21/20 12:40 37.1 C 114 H 20 110/67 96 01/21/20 12:30 113 H 20 110/72 96 01/21/20 12:20 37.2 C 117 H 12 107/66 99 01/21/20 10:49 36.8 C 102 H 22 99/75 L 95 01/21/20 08:05 36.5 C 85 20 96/65 L 93 01/21/20 07:29 101 H 01/21/20 04:53 37.3 C 105 H 18 111/72 96 01/21/20 02:47 86 01/20/20 23:12 37.7 C H 87 20 99/65 L 95 01/20/20 19:07 37.1 C 112 H 20 121/76 94 01/20/20 17:23 84 01/20/20 15:31 37.4 C 89 18 104/68 94 Transfer of Care Handoff Completed per policy Notes Mental Status: alert / awake / arousable (at baseline mental status. awake, non responsive to commands.) Patient Amnestic to Procedure: Yes Nausea / Vomiting: adequately controlled Pain: adequately controlled Airway Patency, RR, SpO2: stable & adequate BP & HR: stable & adequate Hydration State: stable & adequate Anesthetic Complications: no major complications apparent
--- NOTE | 2020-01-21 13:34 | Ultrasound Report ---
US FNA w/img 1st lesion ULTRASOUND-GUIDED FINE-NEEDLE ASPIRATION CLINICAL HISTORY: Multiple hepatic lesions suspicious for metastatic disease. COMPARISON STUDY: CT abdomen and pelvis 01/18/2020. PROCEDURE: The risks, benefits, and alternatives to the procedure were discussed with the patient's p ower of assistant city attorney. The patient is unable to give informed consent.. Written informed consent was obtai liban from the power of assistant city attorney. The patient was placed supine in the operating room and the anesthesi a team provided anesthesia. A lesion within the lateral left hepatic lobe was localized by ultrasound and selected for fine needle aspiration. The left upper quadrant abdomen was prepped and draped in t he usual sterile fashion. The left hepatic lobe mass was aspirated under ultrasound guidance with 2 p asses utilizing 22-gauge spinal needles. Specimens were reviewed by the product/device technologist in real -time and deemed adequate for diagnosis. Post biopsy images showed no postprocedural bleeding. The pa tient tolerated the procedure well and left the department in satisfactory condition. No significant blood loss or other complication. IMPRESSION: Completed fine-needle aspiration of a left hepatic lobe mass as above. ACT 112: Negative or not required by law. The above report was generated using voice recognition software. It may contain grammatical, syntax o r spelling errors. Electronically signed by: Bobby Khan M.D. 01/21/2020 1:33 PM
[2020-01-21] MEDS: AMANTADINE HCL 100 MG CAPSULE PO SCH (13:49)
[2020-01-21] MEDS: SERTRALINE HCL 50 MG TABLET PO SCH (13:49)
[2020-01-21] MEDS: POLYETHYLENE (MIRALAX) 17 GM PACK PO SCH (13:49)
[2020-01-21] MEDS: MULTIVITAMIN TAB PO SCH (13:49)
[2020-01-21] MEDS: DOCUSATE SODIUM/SENNA 50/8.6MG TAB PO SCH ×2 (13:50→20:30)
[2020-01-21] MEDS: LORATADINE 10 MG TAB PO SCH (13:50)
--- NOTE | 2020-01-21 17:20 | Pulmonology Progress Note ---
Date of Service January 21, 2020 Assessment & Plan (1) Lung nodules: Innumerable pulmonary nodules noted on CT scan QuantiFERON gold is negative Patient does have liver mass which is concerning for malignancy. Liver mass biopsy is being conducted today by radiology. Before any further intervention from a pulmonary standpoint would wait for pathology on liver as these are most likely connected. (2) Aspiration pneumonitis: Patient with video swallow study in the past showing no apparent aspiration While seeing patient today she appeared to aspirate ice cream and thin liquids I think the patient probably has longstanding aspiration although not identified on video swallow in the past We will continue conservative treatment as eating is a primary importance to the patient per family Patient is oxygenating well on room air with an SaO2 in the mid 90s Conservative management At this point I discussed the patient with Dr. Peterson and pulmonary will sign off and follow peripherally. Also discussed the case with Dr. Trujillo Thank you for including us in the care of this patient (3) Hypernatremia: (4) Weakness: (5) Intellectual disability: Admission and Anticipated Discharge Date Admission Date: January 18, 2020 Subjective Attending: Dr. Trujillo Patient seen and examined at bedside with patient's brother present. Patient is nonverbal secondary to developmental delay. Brother was feeding the patient and she appeared to be aspirating. Patient continues saturate in the mid 90s on room air. She had no apparent discomfort. I was unable to obtain review of systems secondary to nonverbal state of patient. Review of Systems Review of Systems: Unobtainable due to cognitive status Physical Exam Physical Exam: GENERAL : No acute distress. Patient nonverbal EYES: No icterus, gaze conjugate NOSE: No evidence of epistaxis MOUTH: No lesions or candidiasis. Mucosa moist NECK: Supple LUNGS: Decreased breath sounds and effort bilaterally. Basilar rales right greater than left. Bilateral rhonchi in the upper lung pham HEART: Regular, rate controlled ABDOMEN: Soft, NT, ND, BS Present EXTREMITIES: No LE edema, pedal pulses intact NEURO: Awake and alert. Noncommunicative secondary to developmental delay. Results & Data Results & Data ([facility]) Vital Signs (Past 12 Hours) Vital Signs Temp Pulse Pulse Resp BP BP Pulse Ox 01/21/20 15:23 36.7 C 109 H 20 109/74 93 01/21/20 12:59 36.9 C 115 H 18 123/77 95 01/21/20 12:40 37.1 C 114 H 20 110/67 96 01/21/20 12:30 113 H 20 110/72 96 01/21/20 12:20 37.2 C 117 H 12 107/66 99 01/21/20 10:49 36.8 C 102 H 22 99/75 L 95 01/21/20 08:05 36.5 C 85 20 96/65 L 93 01/21/20 07:29 101 H Laboratory Results 01/19/20 05:51 01/21/20 07:54 Diagnostic Findings Diagnostics DATE TYPE STATUS REF RANGE/AUTHOR Hx 01/21/20 11:18 01/21/20 11:18 William Khan 01/18/20 18:18 Jalen Hernandez 01/18/20 13:08 William Khan 01/18/20 10:44 David Green 01/18/20 10:44 Geschristian,Javier 11/15/19 18:31 Jalen Hernandez 11/15/19 18:31 Jalen Hernandez 10/16/19 10:48 Dustin Langston 10/16/19 10:48 David Green 10/05/19 11:42 Geselowitz,Javier 07/04/19 19:51 Vilbert,Fernando 07/04/19 19:44 Vilbert,Fernando 07/04/19 19:44 Vilbert,Fernando 07/04/19 19:43 Vilbert,Fernando 06/26/19 15:00 Brandy Mendoza 03/03/19 20:56 Geselowitz,Javier 03/03/19 20:56 Geselowitz,Javier 03/03/19 20:56 Geselowitz,Javier 03/03/19 20:56 Geselowitz,Javier 03/03/19 20:56 Geselowitz,Javier 11/20/18 11:51 William Khan 06/25/18 13:00 Thania Stewart 06/25/18 13:00 11/05/17 10:17 11/05/17 09:49 10/05/17 19:37 10/05/17 17:18 Tanisha Rojo 54, F0 1965 ADM IN, 2N N279 -1 5ft 8in 53kg BSA: 1.59m BMI: 17.8kg/m Search Chart Unknown Unknown No Data to Display ONSET 02/14/13 02/14/13 Today 17:21 *from earlier documentation 01/18/20 01/21/20 01/21/20 01/21/20 01/21/20 01/21/20 01/21/20 01/21/20 01/19/20 01/19/20 01/19/20 01/19/20 01/19/20 HISTORY & PHYSICAL 01/21/20 10:26 GENERAL 01/21/20 08:39 01/20/20 22:58 RESPIRATORY 01/21/20 17:14 SURGERY 01/21/20 13:11 01/21/20 08:27 No Data to Display 01/18/20 01/19/20 01/21/20 01/19/20 01/21/20 07/05/19 01/18/20 [facility] (Preferred) Hgb 01/19/20 Hct 01/19/20 Platelet Count 01/19/20 K 01/21/20 Cre 01/21/20 Mg 01/21/20 P 01/19/20 01/18/20 10:44 01/18/20 11:10 01/18/20 11:10 07/04/19 20:10 01/21/20 10:45 01/21/20 10:45 01/21/20 07:54 01/21/20 07:54 01/21/20 07:54 01/21/20 07:54 01/21/20 07:54 07/05/19 06:54 01/21/20 07:54 01/18/20 11:10 01/18/20 11:10 01/18/20 11:10 01/19/20 05:51 01/19/20 05:51 01/19/20 05:51 TANISHA ROJO 54 F 1965 [facility] [place] [phone] CT Scan Report Patient: TANISHA ROJO AAdmit Date: 01/18/20 MR#: [id number]: [id number] [facility] Acct ID:[id number]: Date: 1965City Zip: [place] [address] Age: 54Location: ED Sex: F Room/Bed: Att Phy:Diagnosis: WEIGHT LOSS, WEAKNESS Kimberly Phy: Dmitry Romero, III, MDService Date: 01/18/20 [facility] Phy:Interpreting Phy: William Khan Admit Phy: Ordering Phy: Kourtney Ross PA-C cc: ~ CT chest wo con CT DOSE: 217.19 mGy.cm CLINICAL HISTORY: 54 years-old Female with nodular lung opacities. Follow-up study in a patient with pulmonary nodular opacities. TECHNIQUE: Multiaxial CT images of the chest were performed without contrast. A dose lowering technique was utilized adhering to the principles of ALARA. COMPARISON: Chest radiograph of same day, CT cervical spine 11/15/2019 10 03/03/2019 FINDINGS: Unremarkable thyroid. Evaluation for adenopathy is limited without the use of IV contrast. No definite adenopathy identified. The heart is upper limits of normal in size. Mild coronary artery calcifications. No thoracic aortic aneurysm. Respiratory motion artifact limits evaluation of the lungs. No pneumothorax or pleural effusion. Innumerable randomly distributed solid pulmonary nodules seen within the lungs bilaterally measuring 2-6 mm. A few scattered solid pulmonary nodules demonstrate central cavitation (for example see images 71 and 84 of series 4). Mild reticular opacities are most pronounced in the lung bases and right upper lobe. Patchy right upper lobe groundglass opacities. Central airways are patent. Upper abdomen is suboptimally visualized secondary to respiratory motion artifact. There are several ill-defined hypodense liver lesions measuring up to 5.3 cm within the right hepatic lobe and 3.0 cm within the left hepatic lobe. Moderate fecal retention. Mild nonspecific distal esophageal wall thickening. Healed remote fracture the distal right clavicle. Degenerative changes of the shoulders and spine. Multiple healed remote right-sided rib fractures. Healed mid mandibular fracture. Mild superior endplate compression of multiple vertebral bodies appears to be on a chronic basis. IMPRESSION: 1. Innumerable randomly distributed solid pulmonary nodules are noted within all segments bilaterally measuring 2-6 mm, new from 07/04/2019. A few nodules also demonstrate some central cavitation. Differential considerations would include an atypical pneumonitis versus pulmonary metastasis. Close follow-up is needed. 2. No adenopathy. 3. Multiple ill-defined hepatic masses. These findings should be correlated with prior imaging. Hepatic metastatic disease is a differential consideration. ACT 112: Negative or not required by law. Electronically signed by: Bobby Khan M.D. 01/18/2020 1:49 PM Dictated: 01/18/20 1331 Transcribed: 01/18/20 1331 PG Care Time/CCT Total # of Minutes Spent Total Time Spent with Patient: Total time spent is greater than 50% in coordination of care (as documented) at patient's floor/unit and/or counseling patient: 20 minutes Coding Level of Care Code 45218 Subseq Hosp Care Lvl 1 Diagnoses Lung nodules R91.8 Aspiration pneumonitis J69.0 Hypernatremia E87.0 Weakness R53.1 Intellectual disability F79 Time Spent (min) 20
[2020-01-21] MEDS: risperiDONE 2 MG TABLET PO SCH (20:31)
[2020-01-21] MEDS: TRAZODONE HCL 100 MG TAB PO SCH (20:31)
[2020-01-21] MEDS: SIMVASTATIN 20 MG TAB PO SCH (20:31)
[2020-01-22] MEDS: LEVOTHYROXINE SODIUM 150 MCG TABLET PO SCH (06:13)
[2020-01-22 07:26] LABS: BUN Creatinine Ratio 20.7 (10-20); Calcium 9.5 mg/dl (8.5-10.1); Creatinine Clr Calc Pharmacy 43.8 ml/min; Est GFR (African American) 60.6; Est GFR (Non-African American) 52.2
[2020-01-22] MEDS: MULTIVITAMIN TAB PO SCH (08:46)
[2020-01-22] MEDS: AMANTADINE HCL 100 MG CAPSULE PO SCH (08:46)
[2020-01-22] MEDS: DOCUSATE SODIUM/SENNA 50/8.6MG TAB PO SCH ×2 (08:47→20:22)
[2020-01-22] MEDS: SERTRALINE HCL 50 MG TABLET PO SCH (08:47)
[2020-01-22] MEDS: LORATADINE 10 MG TAB PO SCH (08:47)
[2020-01-22] MEDS: POLYETHYLENE (MIRALAX) 17 GM PACK PO SCH (08:48)
[2020-01-22] MEDS: FLUTICASONE PROPIONATE NA SPR 16 GM BTL NAE SCH ×2 (08:48→20:22)
--- NOTE | 2020-01-22 18:03 | Hospitalist Progress Note ---
Date of Service January 22, 2020 Assessment & Plan (1) Adenocarcinoma of colon metastatic to liver: Multiple liver lesions noted on CT imaging, worrisome for metastatic disease. Possible thickening of colon noted as well as possible enlarged lymph node / implant. GI consulted and it was felt that colonoscopy would be difficult. Yield of lung biopsy by bronch would be low. Diagnostic strategy discussed with family and consultants. Family would like to have a definite diagnosis to assist with further decision making. It was felt that liver biopsy would offer greatest yield with lowest risk. US-guided liver biopsy performed by Radiology 01/21/20 with Anesthesiology administering sedation and monitoring airway. Liver biopsy revealed malignant cells consistent with metastatic adenocarcinoma from a colorectal primary. 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 (2) Lung nodules: Multiple pulmonary nodules noted on CT of chest. Measuring up to 6 mm, some cavitary. Placed in airborne precautions. QuantiFERON negative. Unlikely that adequate sputum can be obtained for AFB. Pulmonary Medicine consulted. No known exposure to TB. Findings worrisome for metastatic disease. Airborne precautions discontinued. Liver biopsy confirmed metastatic colon Ca. Most likely that pulmonary nodules are metastatic from colon as well. (3) Hypernatremia: Serum sodium 157 at time of admission. Nephrology consulted. History of diabetes insipidus years ago, details of evaluation not available. Unable to ascertain urine output; Baugh catheter would probably not be tolerated. Received free water with IV D5W. Sodium today = 145. Continue to follow. Encourage PO fluid intake. (4) Acute kidney injury superimposed on CKD: History of CKD with baseline creatinine around 1. Serum creatinine 1.5 at time of admission. Receiving IV fluids. Creatinine today = 1.18. Follow. (5) Altered mental status: Noted to be more somnolent than baseline at time of admission. No acute findings on CT of head. Probable metabolic encephalopathy secondary to hypernatremia. Improved. (6) Abnormal urinalysis: UA showed nitrites, leukocyte esterase, WBC's, epithelial cells, bacteria. Afebrile. WBC 12,880. Unable to ascertain whether or not pt has urinary symptoms. Received cefepime. Urine C&S - 3 types of organisms, probable skin adore. (7) Hypothyroidism: TSH 11. Free T4 1.17. Elevated TSH may be secondary to acute illness. Continue levothyroxine at current dose of 150 mcg daily. Recheck TFT's in about 6 weeks if clinically warranted. (8) DVT prophylaxis: SCD's. Consider adding anticoagulant after invasive procedures accomplished. (9) Discharge planning issues: Expected return to [facility] facility, ideally her current residence. Family Medicine follow-up with Dr. Romero. Sister Alicia and brother Dmitry given update on path results this evening by phone. Patient has colon cancer with mets to liver and lung; pathology suggests Mims Syndrome. She is not a candidate for chemotherapy due to cognitive disability and poor functional status. They would like to change code status to DNR and enroll her in hospice. Will discuss hospice referral and return to [facility] facility with Case Management. Family understands that they should receive genetic counseling for Mims Syndrome. Admission and Anticipated Discharge Date Admission Date: January 18, 2020 Subjective Recheck for multiple problems. Patient seen in their room around 0720. US-guided liver biopsy went well yesterday. Out of bed to chair. Brother visiting. Review of Systems: Pt unable to respond to queries due to severe cognitive disability. Physical Exam Constitutional: no acute distress Eyes: + anicteric sclerae Respiratory: no respiratory distress Auscultation: lungs clear to auscu ltation bilaterally Cardiovascular: Rate/Rhythm: regular rate and regular rhythm Vessels: no JV D Extremities: no calf tenderness and no edema Gastrointestinal (Abdomen): normal bowel sounds, soft, nontender, no hep atosplenomegaly Skin: no rashes, warm and dry Psychiatric: Orientation: alert Results & Data Results & Data ([facility]) Vital Signs (Past 12 Hours) Vital Signs Temp Pulse Pulse Pulse Resp BP Pulse Ox 01/22/20 16:00 36.9 C 110 H 18 121/84 96 01/22/20 15:17 114 H 01/22/20 11:23 36.9 C 121 H 20 115/80 95 01/22/20 07:29 36.8 C 92 H 20 123/78 91 01/22/20 07:27 88 Laboratory Results 01/22/20 06:25 (1) Altered mental status Altered mental status type: somnolence Qualified Code(s): R40.0 - Somnolence
[2020-01-22] MEDS: TRAZODONE HCL 100 MG TAB PO SCH (20:21)
[2020-01-22] MEDS: risperiDONE 2 MG TABLET PO SCH (20:22)
[2020-01-22] MEDS: ENOXAPARIN INJ 40 MG/0.4 ML SYR SQ SCH (20:22)
[2020-01-22] MEDS: SIMVASTATIN 20 MG TAB PO SCH (20:23)
[2020-01-23] MEDS: LEVOTHYROXINE SODIUM 150 MCG TABLET PO SCH (06:25)
[2020-01-23] MEDS: DOCUSATE SODIUM/SENNA 50/8.6MG TAB PO SCH ×2 (08:00→20:45)
[2020-01-23] MEDS: SERTRALINE HCL 50 MG TABLET PO SCH (08:00)
[2020-01-23] MEDS: LORATADINE 10 MG TAB PO SCH (08:00)
[2020-01-23] MEDS: AMANTADINE HCL 100 MG CAPSULE PO SCH (08:00)
[2020-01-23] MEDS: MULTIVITAMIN TAB PO SCH (08:00)
[2020-01-23] MEDS: POLYETHYLENE (MIRALAX) 17 GM PACK PO SCH (08:01)
[2020-01-23] MEDS: FLUTICASONE PROPIONATE NA SPR 16 GM BTL NAE SCH ×2 (08:01→20:44)
--- NOTE | 2020-01-23 08:19 | Hospitalist Progress Note ---
Date of Service January 23, 2020 Assessment & Plan (1) Adenocarcinoma of colon metastatic to liver: Multiple liver lesions noted on CT imaging, worrisome for metastatic disease. Possible thickening of colon noted as well as possible enlarged lymph node / implant. Diagnostic strategy discussed with family and consultants. Family would like to have a definite diagnosis to assist with further decision making. GI consulted and it was felt that colonoscopy would be difficult. Pulmonary Medicine felt that yield of lung biopsy by bronch would be low. It was felt that liver biopsy would offer greatest yield with lowest risk. US-guided liver biopsy performed by Radiology 01/21/20 with Anesthesiology administering sedation and monitoring airway. Liver biopsy revealed malignant cells consistent with metastatic adenocarcinoma from a colorectal primary. 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 Patient is not a candidate for chemotherapy due to cognitive disability and poor functional status. Prognosis poor, < 6 months. Will refer to hospice. (2) Lung nodules: Multiple pulmonary nodules noted on CT of chest, measuring up to 6 mm. Placed in airborne precautions. Unable to obtain adequate sputum for AFB. Pulmonary Medicine consulted. No known exposure to TB. Findings worrisome for metastatic disease. QuantiFERON negative. Airborne precautions discontinued. Liver biopsy confirmed metastatic colon Ca. Most likely that pulmonary nodules are metastatic from colon as well. (3) Hypernatremia: Serum sodium 157 at time of admission. Nephrology consulted. History of diabetes insipidus years ago, details of evaluation not available. Unable to ascertain urine output; Baugh catheter would probably not be tolerated. Received free water with IV D5W. Sodium yesterday = 145. Continue to follow. Encourage PO fluid intake. (4) Acute kidney injury superimposed on CKD: History of CKD with baseline creatinine around 1. Serum creatinine 1.5 at time of admission. Receiving IV fluids. Creatinine yesterday = 1.18. Follow. (5) Altered mental status: Noted to be more somnolent than baseline at time of admission. No acute findings on CT of head. Probable metabolic encephalopathy secondary to hypernatremia. Improved. (6) Abnormal urinalysis: UA showed nitrites, leukocyte esterase, WBC's, epithelial cells, bacteria. Afebrile. WBC 12,880. Unable to ascertain whether or not pt has urinary symptoms. Received cefepime. Urine C&S - 3 types of organisms, probable skin adore. No need for additional antibiotics. (7) Hypothyroidism: TSH 11. Free T4 1.17. Elevated TSH may be secondary to acute illness. Continue levothyroxine at current dose of 150 mcg daily. Recheck TFT's in about 6 weeks if clinically warranted. (8) DVT prophylaxis: SCD's ordered initially due to anticipated invasive procedures. SQ enoxaparin added after liver biopsy. (9) Discharge planning issues: Expected return to [facility] facility, ideally her current residence. Referral to hospice for metastatic colon cancer. Family Medicine follow-up with Dr. Romero. Sister Alicia visiting and given update. Family is reviewing POLST form. Admission and Anticipated Discharge Date Admission Date: January 18, 2020 Subjective Recheck for multiple problems. Patient seen in their room around 0730. Out of bed to chair. Good PO fluid intake, but needs assistance. Sister visiting. Review of Systems: Pt unable to respond to queries due to severe cognitive disability. Physical Exam Constitutional: no acute distress Eyes: + anicteric sclerae Respiratory: no respiratory distress Auscultation: lungs clear to auscultation bilaterally Cardiovascular: Rate/Rhythm: regular rate and regular rhythm Vessels: no JVD Extremities: no calf tenderness and no edema Gastrointestinal (Abdomen): normal bowel sounds, soft, nontender, no hepatosplenomegaly Skin: no rashes, warm and dry Psychiatric: Orientation: alert Results & Data Results & Data ([facility]) Vital Signs (Past 12 Hours) Vital Signs Temp Pulse Resp BP BP Pulse Ox 01/23/20 07:03 36.4 C L 98 H 19 108/75 96 01/22/20 23:48 37.4 C 89 18 109/70 96 (1) Altered mental status Altered mental status type: somnolence Qualified Code(s): R40.0 - Somnolence
[2020-01-23] MEDS: TRAZODONE HCL 100 MG TAB PO SCH (20:43)
[2020-01-23] MEDS: SIMVASTATIN 20 MG TAB PO SCH (20:45)
[2020-01-23] MEDS: ENOXAPARIN INJ 40 MG/0.4 ML SYR SQ SCH (20:45)
[2020-01-23] MEDS: risperiDONE 2 MG TABLET PO SCH (20:45)
[2020-01-24] MEDS: LEVOTHYROXINE SODIUM 150 MCG TABLET PO SCH (05:08)
[2020-01-24] MEDS: AMANTADINE HCL 100 MG CAPSULE PO SCH (07:53)
[2020-01-24] MEDS: DOCUSATE SODIUM/SENNA 50/8.6MG TAB PO SCH ×2 (07:53→20:46)
[2020-01-24] MEDS: SERTRALINE HCL 50 MG TABLET PO SCH (07:53)
[2020-01-24] MEDS: MULTIVITAMIN TAB PO SCH (07:53)
[2020-01-24] MEDS: LORATADINE 10 MG TAB PO SCH (07:54)
[2020-01-24] MEDS: FLUTICASONE PROPIONATE NA SPR 16 GM BTL NAE SCH ×2 (07:54→20:45)
[2020-01-24] MEDS: POLYETHYLENE (MIRALAX) 17 GM PACK PO SCH (07:54)
[2020-01-24 07:59] LABS: BUN Creatinine Ratio 23.1 (10-20); Calcium 9.6 mg/dl (8.5-10.1); Creatinine Clr Calc Pharmacy 47.8 ml/min; Est GFR (African American) 67.4; Est GFR (Non-African American) 58.2; Potassium 3.6 mmol/L (3.5-5.1)
--- NOTE | 2020-01-24 11:55 | Hospitalist Progress Note ---
Date of Service January 24, 2020 Assessment & Plan (1) Adenocarcinoma of colon metastatic to liver: Multiple liver lesions noted on CT imaging, worrisome for metastatic disease. Possible thickening of colon noted as well as possible enlarged lymph node / implant. Diagnostic strategy discussed with family and consultants. Family would like to have a definite diagnosis to assist with further decision making. GI consulted and it was felt that colonoscopy would be difficult. Pulmonary Medicine felt that yield of lung biopsy by bronch would be low. It was felt that liver biopsy would offer greatest yield with lowest risk. US-guided liver biopsy performed by Radiology 01/21/20 with Anesthesiology administering sedation and monitoring airway. Liver biopsy revealed malignant cells consistent with metastatic adenocarcinoma from a colorectal primary. 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 Patient is not a candidate for chemotherapy due to cognitive disability and poor functional status. Prognosis poor, < 6 months. Will refer to hospice. (2) Lung nodules: Multiple pulmonary nodules noted on CT of chest, measuring up to 6 mm. Placed in airborne precautions. Unable to obtain adequate sputum for AFB. Pulmonary Medicine consulted. No known exposure to TB. Findings worrisome for metastatic disease. QuantiFERON negative. Airborne precautions discontinued. Liver biopsy confirmed metastatic colon Ca. Most likely that pulmonary nodules are metastatic from colon as well. (3) Hypernatremia: Serum sodium 157 at time of admission. Nephrology consulted. History of diabetes insipidus years ago, details of evaluation not available. Unable to ascertain urine output; Baugh catheter would probably not be tolerated. Received free water with IV D5W. Sodium today = 138. Continue to follow. Encourage PO fluid intake. (4) Acute kidney injury superimposed on CKD: History of CKD with baseline creatinine around 1. Serum creatinine 1.5 at time of admission. Receiving IV fluids. Creatinine today = 1.08. Follow. (5) Altered mental status: Noted to be more somnolent than baseline at time of admission. No acute findings on CT of head. Probable metabolic encephalopathy secondary to hypernatremia. Improved. (6) Abnormal urinalysis: UA showed nitrites, leukocyte esterase, WBC's, epithelial cells, bacteria. Afebrile. WBC 12,880. Unable to ascertain whether or not pt has urinary symptoms. Received cefepime. Urine C&S - 3 types of organisms, probable skin adore. No need for additional antibiotics. (7) Hypothyroidism: TSH 11. Free T4 1.17. Elevated TSH may be secondary to acute illness. Continue levothyroxine at current dose of 150 mcg daily. Recheck TFT's in about 6 weeks if clinically warranted. (8) Dysphagia: Patient often coughs when eating or drinking. No respiratory distress. Seen by POST ACUTE CARE NURSE PRACTITIONER. Probable aspiration. Discussed with POST ACUTE CARE NURSE PRACTITIONER and family. Consensus is that permissive aspiration should be allowed since eating and drinking are among the few things that she enjoys. Continue aspiration precautions. (9) DVT prophylaxis: SCD's ordered initially due to anticipated invasive procedures. SQ enoxaparin added after liver biopsy. (10) Discharge planning issues: Expected return to [facility] facility, ideally her current residence. Referral to hospice for metastatic colon cancer. Family Medicine follow-up with Dr. Romero. Brothers Nas & Dmitry give update this morning. Patient seems to be more anxious and restless; family hopes that she can return to [facility] as soon as possible. Admission and Anticipated Discharge Date Admission Date: January 18, 2020 Subjective Recheck for multiple problems. Patient seen in their room around 0950. Did not sleep well last night. Out of bed to chair. Good PO fluid intake, but needs assistance. Frequent coughing when eating or drinking, but no respiratory distress. Brother visiting. Review of Systems: Pt unable to respond to queries due to severe cognitive disability. Physical Exam Constitutional: no acute distress Eyes: + anicteric sclerae Respiratory: no respiratory distress Auscultation: lungs clear to auscultation bilaterally Cardiovascular: Rate/Rhythm: regular rate and regular rhythm Vessels: no JVD Extremities: no calf tenderness and no edema Gastrointestinal (Abdomen): normal bowel sounds, soft, nontender, no hepatosplenomegaly Skin: no rashes, warm and dry mild erythema over lower thoracic spine 5 x 10 mm shallow ulcer with surrounding erythema left posterior back Psychiatric: Orientation: alert Results & Data Results & Data ([facility]) Vital Signs (Past 12 Hours) Vital Signs Temp Pulse Resp BP Pulse Ox 01/24/20 07:52 36.8 C 104 H 18 112/70 93 01/24/20 00:07 36.7 C 88 19 142/79 H 92 Laboratory Results 01/24/20 06:53 (1) Altered mental status Altered mental status type: somnolence Qualified Code(s): R40.0 - Somnolence (2) Dysphagia Dysphagia type: unspecified Qualified Code(s): R13.10 - Dysphagia, unspecified
[2020-01-24] MEDS ORDERED: LORazepam 0.5 MG TAB PO PRN (20:12)
[2020-01-24] MEDS: SIMVASTATIN 20 MG TAB PO SCH (20:46)
[2020-01-24] MEDS: ENOXAPARIN INJ 40 MG/0.4 ML SYR SQ SCH (20:46)
[2020-01-24] MEDS: risperiDONE 2 MG TABLET PO SCH (20:46)
[2020-01-24] MEDS: TRAZODONE HCL 100 MG TAB PO SCH (20:46)
[2020-01-25] MEDS: LEVOTHYROXINE SODIUM 150 MCG TABLET PO SCH (05:54)
[2020-01-25] MEDS: MULTIVITAMIN TAB PO SCH (09:11)
[2020-01-25] MEDS: LORATADINE 10 MG TAB PO SCH (09:11)
[2020-01-25] MEDS: DOCUSATE SODIUM/SENNA 50/8.6MG TAB PO SCH ×2 (09:11→20:41)
[2020-01-25] MEDS: AMANTADINE HCL 100 MG CAPSULE PO SCH (09:11)
[2020-01-25] MEDS: SERTRALINE HCL 50 MG TABLET PO SCH (09:11)
[2020-01-25] MEDS: POLYETHYLENE (MIRALAX) 17 GM PACK PO SCH (09:12)
[2020-01-25] MEDS: FLUTICASONE PROPIONATE NA SPR 16 GM BTL NAE SCH ×2 (09:12→20:41)
--- NOTE | 2020-01-25 19:03 | Hospitalist Progress Note ---
Date of Service January 25, 2020 Assessment & Plan (1) Adenocarcinoma of colon metastatic to liver: Multiple liver lesions noted on CT imaging, worrisome for metastatic disease. Possible thickening of colon noted as well as possible enlarged lymph node / implant. Diagnostic strategy discussed with family and consultants. Family would like to have a definite diagnosis to assist with further decision making. GI consulted and it was felt that colonoscopy would be difficult. Pulmonary Medicine felt that yield of lung biopsy by bronch would be low. It was felt that liver biopsy would offer greatest yield with lowest risk. US-guided liver biopsy performed by Radiology 01/21/20 with Anesthesiology administering sedation and monitoring airway. Liver biopsy revealed malignant cells consistent with metastatic adenocarcinoma from a colorectal primary. 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 Patient is not a candidate for chemotherapy due to cognitive disability and poor functional status. Prognosis poor, < 6 months. Hospice referral initiated. (2) Lung nodules: Multiple pulmonary nodules noted on CT of chest, measuring up to 6 mm. Placed in airborne precautions. Unable to obtain adequate sputum for AFB. Pulmonary Medicine consulted. No known exposure to TB. Findings worrisome for metastatic disease. QuantiFERON negative. Airborne precautions discontinued. Liver biopsy confirmed metastatic colon Ca. Most likely that pulmonary nodules are metastatic from colon as well. (3) Hypernatremia: Serum sodium 157 at time of admission. Nephrology consulted. History of diabetes insipidus years ago, details of evaluation not available. Unable to ascertain urine output; Baugh catheter would probably not be tolerated. Received free water with IV D5W. Sodium yesterday = 138. Encourage PO fluid intake. (4) Acute kidney injury superimposed on CKD: History of CKD with baseline creatinine around 1. Serum creatinine 1.5 at time of admission. Received IV fluids. Creatinine yesterday = 1.08. (5) Altered mental status: Noted to be more somnolent than baseline at time of admission. No acute findings on CT of head. Probable metabolic encephalopathy secondary to hypernatremia. Improved. (6) Abnormal urinalysis: UA showed nitrites, leukocyte esterase, WBC's, epithelial cells, bacteria. Afebrile. WBC 12,880. Unable to ascertain whether or not pt has urinary symptoms. Received cefepime. Urine C&S - 3 types of organisms, probable skin adore. No need for additional antibiotics. (7) Hypothyroidism: TSH 11. Free T4 1.17. Elevated TSH may be secondary to acute illness. Continue levothyroxine at current dose of 150 mcg daily. Recheck TFT's in about 6 weeks if clinically warranted. (8) Dysphagia: Patient often coughs when eating or drinking. No respiratory distress. Seen by MANAGER DIGITAL. Probable aspiration. Discussed with MANAGER DIGITAL and family. Consensus is that permissive aspiration should be allowed since eating and drinking are among the few things that she enjoys. Continue aspiration precautions. (9) DVT prophylaxis: SCD's ordered initially due to anticipated invasive procedures. SQ enoxaparin added after liver biopsy. (10) Discharge planning issues: Expected return to [facility] facility, ideally her current residence. Referral to hospice for metastatic colon cancer. Family Medicine follow-up with Dr. Romero. Arrangements underway for returning to [facility] with hospice care. POLST discussed with sister Alicia and was signed. DNR comfort measures only antibiotics for comfort no artifical feedings Copy placed on chart. Original returned to [place]. Admission and Anticipated Discharge Date Admission Date: January 18, 2020 Subjective Recheck for multiple problems. Patient seen in their room around 0940. No new problems. Good oral intake with assistance. Sister visiting. Review of Systems: Pt unable to respond to queries due to severe cognitive disability. Physical Exam Constitutional: no acute distress Eyes: + anicteric sclerae Respiratory: no respiratory distress Auscultation: lungs clear to auscultation bilaterally Cardiovascular: Rate/Rhythm: regular rate and regular rhythm Vessels: no JVD Extremities: no calf tenderness and no edema Gastrointestinal (Abdomen): normal bowel sounds, soft, nontender, no hepatosplenomegaly Skin: no rashes, warm and dry Psychiatric: Orientation: alert Results & Data Results & Data ([facility]) Vital Signs (Past 12 Hours) Vital Signs Temp Pulse Resp BP Pulse Ox 01/25/20 07:37 36.5 C 59 L 18 125/77 95 (1) Altered mental status Altered mental status type: somnolence Qualified Code(s): R40.0 - Somnolence (2) Dysphagia Dysphagia type: unspecified Qualified Code(s): R13.10 - Dysphagia, unspecified
[2020-01-25] MEDS: risperiDONE 2 MG TABLET PO SCH (20:39)
[2020-01-25] MEDS: TRAZODONE HCL 100 MG TAB PO SCH (20:39)
[2020-01-25] MEDS: SIMVASTATIN 20 MG TAB PO SCH (20:41)
[2020-01-25] MEDS: ENOXAPARIN INJ 40 MG/0.4 ML SYR SQ SCH (20:42)
[2020-01-26] MEDS: LEVOTHYROXINE SODIUM 150 MCG TABLET PO SCH (04:47)
[2020-01-26] MEDS: LORATADINE 10 MG TAB PO SCH (08:29)
[2020-01-26] MEDS: MULTIVITAMIN TAB PO SCH (08:30)
[2020-01-26] MEDS: FLUTICASONE PROPIONATE NA SPR 16 GM BTL NAE SCH (08:30)
[2020-01-26] MEDS: AMANTADINE HCL 100 MG CAPSULE PO SCH (08:30)
[2020-01-26] MEDS: POLYETHYLENE (MIRALAX) 17 GM PACK PO SCH (08:30)
[2020-01-26] MEDS: SERTRALINE HCL 50 MG TABLET PO SCH (08:31)
[2020-01-26] MEDS: DOCUSATE SODIUM/SENNA 50/8.6MG TAB PO SCH (08:32)
--- NOTE | 2020-01-26 10:01 | Hospitalist Progress Note ---
Date of Service January 26, 2020 Assessment & Plan (1) Adenocarcinoma of colon metastatic to liver: Multiple liver lesions noted on CT imaging, worrisome for metastatic disease. Possible thickening of colon noted as well as possible enlarged lymph node / implant. Diagnostic strategy discussed with family and consultants. Family would like to have a definite diagnosis to assist with further decision making. GI consulted and it was felt that colonoscopy would be difficult. Pulmonary Medicine felt that yield of lung biopsy by bronch would be low. It was felt that liver biopsy would offer greatest yield with lowest risk. US-guided liver biopsy performed by Radiology 01/21/20 with Anesthesiology administering sedation and monitoring airway. Liver biopsy revealed malignant cells consistent with metastatic adenocarcinoma from a colorectal primary. 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 Patient is not a candidate for chemotherapy due to cognitive disability and poor functional status. Prognosis poor, < 6 months. Hospice referral made. (2) Lung nodules: Multiple pulmonary nodules noted on CT of chest, measuring up to 6 mm. Placed in airborne precautions. Unable to obtain adequate sputum for AFB. Pulmonary Medicine consulted. No known exposure to TB. Findings worrisome for metastatic disease. QuantiFERON negative. Airborne precautions discontinued. Liver biopsy confirmed metastatic colon Ca. Most likely that pulmonary nodules are metastatic from colon as well. (3) Hypernatremia: Serum sodium 157 at time of admission. Nephrology consulted. History of diabetes insipidus years ago, details of evaluation not available. Unable to ascertain urine output; Baugh catheter would probably not be tolerated. Received free water with IV D5W. Sodium /14 = 138. Encourage PO fluid intake. (4) Acute kidney injury superimposed on CKD: History of CKD with baseline creatinine around 1. Serum creatinine 1.5 at time of admission. Received IV fluids. Creatinine /14 = 1.08. (5) Altered mental status: Noted to be more somnolent than baseline at time of admission. No acute findings on CT of head. Probable metabolic encephalopathy secondary to hypernatremia. Improved. (6) Abnormal urinalysis: UA showed nitrites, leukocyte esterase, WBC's, epithelial cells, bacteria. Afebrile. WBC 12,880. Unable to ascertain whether or not pt has urinary symptoms. Received cefepime. Urine C&S - 3 types of organisms, probable skin adore. No need for additional antibiotics. (7) Hypothyroidism: TSH 11. Free T4 1.17. Elevated TSH may be secondary to acute illness. Continue levothyroxine at current dose of 150 mcg daily. Recheck TFT's in about 6 weeks if clinically warranted. (8) Dysphagia: Patient often coughs when eating or drinking. No respiratory distress. Seen by EMBROIDERY FINISHER. Probable aspiration. Discussed with EMBROIDERY FINISHER and family. Consensus is that permissive aspiration should be allowed since eating and drinking are among the few things that she enjoys. Continue aspiration precautions. (9) DVT prophylaxis: SCD's ordered initially due to anticipated invasive procedures. SQ enoxaparin added after liver biopsy. (10) Discharge planning issues: Returning to [facility] with hospice care. Referral to hospice for metastatic colon cancer. Family Medicine follow-up with Dr. Romero. DESMOND discussed with sister Alicia and was signed. DNR comfort measures only antibiotics for comfort no artifical feedings Copy placed on chart. Original returned to Alicia. Admission and Anticipated Discharge Date Admission Date: January 18, 2020 Subjective Recheck for multiple problems. No new problems. Good oral intake with assistance. Sister visiting. Anxious to go home. Review of Systems: Pt unable to respond to queries due to severe cognitive disability. Physical Exam Constitutional: no acute distress Eyes: + anicteric sclerae Respiratory: no respiratory distress Auscultation: lungs clear to auscultation bilaterally Cardiovascular: Rate/Rhythm: regular rate and regular rhythm Vessels: no JVD Extremities: no calf tenderness and no edema Gastrointestinal (Abdomen): normal bowel sounds, soft, nontender, no hepatosplenomegaly Skin: no rashes, warm and dry Psychiatric: Orientation: alert Results & Data Results & Data ([facility]) Vital Signs (Past 12 Hours) Vital Signs Temp Pulse Resp BP BP Pulse Ox 01/26/20 07:33 36.8 C 120 H 20 120/79 01/26/20 00:10 36.9 C 90 20 103/66 95 (1) Altered mental status Altered mental status type: somnolence Qualified Code(s): R40.0 - Somnolence (2) Dysphagia Dysphagia type: unspecified Qualified Code(s): R13.10 - Dysphagia, unspecified
--- NOTE | 2020-01-27 06:16 | Discharge Summary ---
Date of Service Date of Admission: 01/18/20 Date of Discharge: 01/26/20 Admission HPI Per Admitting Provider 54-year-old female with severe mental retardation, resident of [facility], And other problems noted below presenting with generalized weakness for the past few days. History obtained from staff at the [facility] as well as the caregiver present at bedside. Per staff, they have been noticing that the patient has been losing weight unintentionally for the past 3 to 4 months. For the past few days, the patient was noted to have increased generalized weakness- having difficulty moving around, getting up from bed or from the chair as well as drowsy. Her appetite has been fair, noted to have not been drinking much for the past few days. No fevers or chills, no cough except occasionally when she is eating or drinking, no shortness of breath. No other symptoms. At the ER patient was found to have sodium of 157. UA suggestive of urinary tract infection. Chest x-ray showed bilateral scattered pulmonary nodules. 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 probably lung OTHER ACUTE / NEW DIAGNOSES: hypernatremia acute kidney injury superimposed on CKD Discharge Data Allergies Allergy/AdvReac Type Severity Reaction Status Date / Time benztropine Allergy Mild Unknown Verified 01/18/20 12:02 pseudoephedrine Allergy Mild Unknown Verified 01/18/20 12:02 Consultations 01/18/20 12:32 ED Decision to Admit Stat 01/18/20 17:04 Consult Case Management - Discharge Planning Routine Consult Nephrology Routine Consult Pulmonology Routine 01/18/20 20:47 Consult Gastroenterology Routine 01/21/20 08:18 Consult Anesthesiology Routine Consult Radiology Routine Procedures Performed Operation Date: 01/21/20 08:50 Actual Procedures p Liver Biopsy(Not Applicable) - William Khan Ordered Studies 01/18/20 10:44 CT head/brain wo con Stat 01/18/20 13:08 CT chest without contrast [CT chest wo con] Urgent 01/18/20 18:18 CT abd pelvis wo con Urgent 01/21/20 11:18 US FNA w/img 1st lesion Routine Hospital Course (1) Adenocarcinoma of colon metastatic to liver: Presented with dehydration and hypernatremia. Recent weight loss. Multiple liver lesions noted on CT imaging, worrisome for metastatic disease. Possible thickening of colon noted as well as possible enlarged lymph node / implant. Diagnostic strategy discussed with family and consultants. Family wished to have a definite diagnosis to assist with further decision making. GI consulted and it was felt that colonoscopy would be difficult. Pulmonary Medicine felt that yield of lung biopsy by bronch would be low. It was felt that liver biopsy would offer greatest yield with lowest risk. US-guided liver biopsy performed by Radiology 01/21/20 with Anesthesiology administering sedation and monitoring airway. Liver biopsy revealed malignant cells consistent with metastatic adenocarcinoma from a colorectal primary. 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 Patient is not a candidate for chemotherapy due to cognitive disability and poor functional status. Prognosis poor, < 6 months. Hospice referral made. (2) Lung nodules: Multiple pulmonary nodules noted on CT of chest, measuring up to 6 mm. Placed in airborne precautions. Unable to obtain adequate sputum for AFB. Pulmonary Medicine consulted. No known exposure to TB. Findings worrisome for metastatic disease. QuantiFERON negative. Airborne precautions discontinued. Liver biopsy confirmed metastatic colon Ca. Most likely that pulmonary nodules are metastatic disease from colon as well. (3) Hypernatremia: Serum sodium 157 at time of admission. Nephrology consulted. History of diabetes insipidus years ago, details of evaluation not available. Unable to ascertain urine output; Baugh catheter would probably not be tolerated. Received free water with IV D5W. Sodium 01/23 = 138. Encourage PO fluid intake. (4) Acute kidney injury superimposed on CKD: History of CKD with baseline creatinine around 1. Serum creatinine 1.5 at time of admission. Received IV fluids. Creatinine / = 1.08. (5) Altered mental status: Noted to be more somnolent than baseline at time of admission. No acute findings on CT of head. Probable metabolic encephalopathy secondary to hypernatremia. Improved. (6) Abnormal urinalysis: UA showed nitrites, leukocyte esterase, WBC's, epithelial cells, bacteria. Afebrile. WBC 12,880. Unable to ascertain whether or not pt has urinary symptoms. Received cefepime. Urine C&S - 3 types of organisms, probable skin adore. No need for additional antibiotics. (7) Hypothyroidism: TSH 11. Free T4 1.17. Elevated TSH may be secondary to acute illness. Continue levothyroxine at current dose of 150 mcg daily. Recheck TFT's in about 6 weeks if clinically warranted. (8) Dysphagia: Patient often coughs when eating or drinking. No respiratory distress. Seen by [employer]. Probable aspiration. Discussed with [employer] and family. Consensus is that permissive aspiration should be allowed since eating and drinking are among the few things that she enjoys. Continue aspiration precautions. (9) DVT prophylaxis: SCD's ordered initially due to anticipated invasive procedures. SQ enoxaparin added after liver biopsy. (10) Discharge planning issues: Returning to [facility] facility with hospice care. Referral to hospice for metastatic colon cancer. Family Medicine follow-up with Dr. Romero. POL discussed with sister Alicia and was signed. DNR comfort measures only antibiotics for comfort no artifical feedings Copy placed on chart. Original returned to Alicia. Total Time Total Time Spent Total Time Spent (In Minutes): 40 Discharge Plan Discharge Items Patient Disposition: Hospice - Home Reason For Visit: weakness Discharge Diagnosis: metastatic colorectal cancer hypernatremia (high sodium level) Condition on Discharge: Fair Activity: As commented below Activity Comment: As tolerated with help. Non-emergency contact: Primary Care Provider and Hospitalist Call non-emergency contact if: you have any medication questions and your symptoms worsen Follow-up/Referrals: Dmitry Romero MD [Primary Care Provider] - (02/02/2020 10:20 AM Dmitry Romero III, MD [facility] (please contact office and confirm need for appointment) ) Diet: Regular Diet Texture: Easy to Chew Addtl Attending Provider Instructions: SUMMARY OF TEST RESULTS: Liver biopsy showed cancer that probably came from colon. Sodium level was high. RECOMMENDATIONS FOR FOLLOW-UP: Hospice care with [facility] [place]. OTHER INSTRUCTIONS: Encourage intake of fluids. Fall precautions. Aspiration precautions. Seek medical attention if you have: * uncontrolled pain * uncontrolled nausea or vomiting * any unanswered questions or concerns Please take good care of yourself. Call if you have any questions or problems. You can reach a [facility] hospitalist on duty at [facility] 24 hours a day by calling [phone]. My cell # is [phone]. Pending Studies at Discharge: No Stand-Alone Forms: [facility] Medications and DC Order Prescriptions: New acetaminophen 500 mg tablet 1,000 mg PO Q8H PRN (Reason: fever or pain) Qty: 60 RF: 0 ondansetron HCl [Zofran] 4 mg tablet 4 mg PO Q6H PRN (Reason: nausea and vomiting) Qty: 10 RF: 0 lorazepam 0.5 mg tablet 0.5 mg PO Q6H PRN (Reason: anxiety) Qty: 10 RF: 0 morphine concentrate 100 mg/5 mL (20 mg/mL) solution 5 mg PO Q6H Qty: 30 RF: 0 Continued sennosides-docusate sodium [Senexon-S] 8.6-50 mg Tablet 1 tab PO BID RF: 0 bisacodyl 10 mg Suppository 10 mg ND DIRECTED PRN (Reason: Constipation) RF: 0 amantadine HCl 100 mg capsule 100 mg PO QAM RF: 0 risperidone [Risperdal] 2 mg tablet 2 mg PO HS RF: 0 trazodone 100 mg tablet 400 mg PO HS RF: 0 buspirone 10 mg tablet 10 mg PO TID RF: 0 levothyroxine [Synthroid] 150 mcg tablet 150 mcg PO QAM RF: 0 sertraline [Zoloft] 25 mg tablet 25 mg PO QAM RF: 0 polyethylene glycol 3350 17 gram/dose powder 1 dose PO QAM RF: 0 fluticasone propionate [Flonase Allergy Relief] 50 mcg/actuation spray,suspension 1 spray Intranasal BID RF: 0 loratadine 10 mg Tablet 10 mg PO QAM RF: 0 melatonin 1 mg Tablet 2 mg PO HS RF: 0 Natural Vegetable Powder 3.4 gram/12 gram Powder 1 dose PO QAM RF: 0 Discontinued calcium carbonate [Calcium 600] 600 mg calcium (1,500 mg) Tablet 1,200 mg PO QAM RF: 0 multivitamin Tablet 1 tab PO QAM RF: 0 alendronate [Fosamax] 70 mg Tablet 70 mg PO TU RF: 0 simvastatin [Zocor] 20 mg tablet 20 mg PO HS RF: 0 lisinopril [Zestril] 2.5 mg tablet 2.5 mg PO QAM RF: 0 Discharge Orders: Discharge Order (Routine); Ordered 01/26/20 Ordered By: Dmitry Peterson Admission Data Admit Date/Time: 01/18/20 12:53 Attending Provider: Dmitry Peterson Admit Provider: Ousmane Daniel Primary Care Provider: Dmitry Romero Other Providers: Ousmane Daniel ; Brian Higgins ; Naresh Randhawa ; Samra Davalos ; Patric Mena Other Interventions: Discharge Summary Assessment (RN) Last Done: 01/26/20 09:59 DC Date/Time DO NOT enter until pt leaves facility: 01/26/20 11:23
== END 2020-01-26 11:23 | disposition hospice, home (50) | DRG 374 ==
LOC: ED 10:03 → 2N 12:53 → SUATTDRO 12:53 → 2N 16:11